=== PATIENT | female | born 1975 | race African-American/Black ===

== ENCOUNTER 2016-04-04 20:43 | Inpatient (IN) | payer MEDICAID ==
[2016-04-04] MEDS ORDERED: RINGERS SOLUTION,LACTATED 300 ML IV ONE (21:36)
[2016-04-04] MEDS ORDERED: DINOPROSTONE 10 MG VAGINAL INSERT.SR PV PRN (21:36)
[2016-04-04] MEDS ORDERED: OXYTOCIN/NORMAL SALINE 1,000 ML IV PRN (21:36)
[2016-04-04 21:46] LABS: APPEARANCE,URINE CLEAR; BILIRUBIN,URINE NEGATIVE (NEGATIVE); GLUCOSE, URINE NEGATIVE (NEGATIVE); KETONES,URINE NEGATIVE (NEGATIVE); LEUKOCYTE ESTERASE,URINE NEGATIVE (NEGATIVE); NITRITE,URINE NEGATIVE (NEGATIVE); PROTEIN,URINE 30 mg/dL (NEGATIVE); URINE SPECIFIC GRAVITY 1.021
[2016-04-04 21:56] LABS: ABSOLUTE EOSINOPHILS # (AUTO) 0.1 10^3/uL (0.0-0.6); ABSOLUTE LYMPHOCYTES (AUTO) 2.7 10^3/uL (0.5-4.7); ABSOLUTE MONOCYTES (AUTO) 0.9 10^3/uL (0.1-1.4); ABSOLUTE NEUT (AUTO) 6.5 10^3/uL (1.7-8.2); BASOPHILS % (AUTO) 0.4 % (0-2); EOSINOPHILS % (AUTO) 1.1 % (0-6); HEMATOCRIT 33.6 % (36.0-47.0); HEMOGLOBIN 11.5 g/dL (12.0-15.5); HGB HCT DIFFERENCE 0.9; LYMPHOCYTES % (AUTO) 26.1 % (13-45); MEAN CORPUSCULAR HGB CONC 34.1 g/dL (32.0-36.0); MEAN CORPUSCULAR VOLUME 91 fl (80-97); MONOCYTES % (AUTO) 8.5 % (3-13); RED CELL DISTRIBUTION WIDTH 13.5 % (11.5-14.0); SEGMENTED NEUTROPHILS % (AUTO) 63.9 % (42-78); WHITE BLOOD COUNT 10.2 10^3/uL (4.0-10.5)
[2016-04-04] MEDS ORDERED: DINOPROSTONE 10 MG VAGINAL INSERT.SR ONE (22:00)
[2016-04-04 22:01] LABS: URINE BARBITURATES SCREEN NEGATIVE; URINE METHADONE SCREEN NEGATIVE; URINE PHENCYCLIDINE SCREEN NEGATIVE
--- NOTE | 2016-04-05 04:45 | L&D Flow Sheet ---
LD Flowsheet Datetime Report Generated by CPN: 04/05/2016 04:45 Datetime: 04/05/2016 04:00 Uterine Activity Monitor Mode: External (Zara Lattibeaudeir, RN) Frequency (min): x2 (Zara Lattibeaudeir, RN) Quality: Mild/Moderate (Zara Lattibeaudeir, RN) Duration (sec): 70-140 (Zara Lattibeaudeir, RN) Resting Tone (Palpate): Relaxed (Zara Lattibeaudeir, RN) Assessment A Monitor Mode: External US (Zara Lattibeaudeir, RN) FHR Baseline Rate : 120 (Zara Lattibeaudeir, RN) Variability: Moderate 6-25 bpm (Zara Lattibeaudeir, RN) Accelerations: 15X15 (Zara Lattibeaudeir, RN) Datetime: 04/05/2016 03:52 I/O Interventions: Up to BR (Zara Lattibeaudeir, RN) Datetime: 04/05/2016 03:30 Uterine Activity Monitor Mode: External (Zara Lattibeaudeir, RN) Frequency (min): 10-11.5 (Zara Lattibeaudeir, RN) Quality: Mild/Moderate (Zara Lattibeaudeir, RN) Duration (sec): 70-90 (Zara Lattibeaudeir, RN) Resting Tone (Palpate): Relaxed (Zara Lattibeaudeir, RN) Assessment A Monitor Mode: External US (Zara Lattibeaudeir, RN) FHR Baseline Rate : 120 (Zara Lattibeaudeir, RN) Variability: Moderate 6-25 bpm (Zara Lattibeaudeir, RN) Accelerations: 15X15 (Zara Lattibeaudeir, RN) Datetime: 04/05/2016 03:20 Vital Signs NBP Sys/Che/Mean (mmHg): 114 (QS system process) : 65 (QS system process) : 85 (QS system process) Pulse: 72 (QS system process) LaborFlag: Labor (QS system process) Datetime: 04/05/2016 03:00 Uterine Activity Monitor Mode: External (Zara Lattibeaudeir, RN) Frequency (min): 10-11 (Zara Lattibeaudeir, RN) Quality: Mild/Moderate (Zara Lattibeaudeir, RN) Duration (sec): 70-150 (Zara Lattibeaudeir, RN) Resting Tone (Palpate): Relaxed (Zara Lattibeaudeir, RN) Assessment A Monitor Mode: External US (Zara Lattibeaudeir, RN) FHR Baseline Rate : 115 (Zara Lattibeaudeir, RN) Variability: Minimal - Undetectable to <=5 bpm (Zara Lattibeaudeir, RN) Datetime: 04/05/2016 02:57 Monitor Interventions for FHR: Ultrasound Adjusted (Zara Lattibeaudeir, RN) Datetime: 04/05/2016 02:52 Monitor Interventions for FHR: Ultrasound Adjusted (Zara Lattibeaudeir, RN) Datetime: 04/05/2016 02:41 Monitor Interventions for FHR: Ultrasound Adjusted (Zara Lattibeaudeir, RN) Datetime: 04/05/2016 02:30 Uterine Activity Monitor Mode: External (Zara Lattibeaudeir, RN) Frequency (min): 11-19 (Zara Lattibeaudeir, RN) Quality: Mild/Moderate (Zara Lattibeaudeir, RN) Duration (sec): 90-100 (Zara Lattibeaudeir, RN) Resting Tone (Palpate): Relaxed (Zara Lattibeaudeir, RN) Assessment A Monitor Mode: External US (Zara Lattibeaudeir, RN) FHR Baseline Rate : 115 (Zara Lattibeaudeir, RN) Datetime: 04/05/2016 02:20 Vital Signs NBP Sys/Che/Mean (mmHg): 111 (QS system process) : 66 (QS system process) : 84 (QS system process) Pulse: 75 (QS system process) LaborFlag: Labor (QS system process) Datetime: 04/05/2016 02:00 Uterine Activity Monitor Mode: External (Zara Lattibeaudeir, RN) Frequency (min): 2-7.5 (Zara Lattibeaudeir, RN) Quality: Mild/Moderate (Zara Lattibeaudeir, RN) Duration (sec): 50-100 (Zara Lattibeaudeir, RN) Resting Tone (Palpate): Relaxed (Zara Lattibeaudeir, RN) Assessment A Monitor Mode: External US (Zara Lattibeaudeir, RN) FHR Baseline Rate : 120 (Zara Lattibeaudeir, RN) Variability: Moderate 6-25 bpm (Zara Lattibeaudeir, RN) Accelerations: 15X15 (Zara Lattibeaudeir, RN) Datetime: 04/05/2016 01:30 Uterine Activity Monitor Mode: External (Zara Lattibeaudeir, RN) Frequency (min): x2 (Zara Lattibeaudeir, RN) Quality: Mild/Moderate (Zara Lattibeaudeir, RN) Duration (sec): 90-100 (Zara Lattibeaudeir, RN) Resting Tone (Palpate): Relaxed (Zara Lattibeaudeir, RN) Assessment A Monitor Mode: External US (Zara Lattibeaudeir, RN) FHR Baseline Rate : 125 (Zara Lattibeaudeir, RN) Variability: Moderate 6-25 bpm (Zara Lattibeaudeir, RN) Datetime: 04/05/2016 01:21 Vital Signs NBP Sys/Che/Mean (mmHg): 123 (QS system process) : 68 (QS system process) : 90 (QS system process) Pulse: 77 (QS system process) LaborFlag: Labor (QS system process) Datetime: 04/05/2016 01:17 Monitor Interventions for UA: [place] Adjusted (Zara Lattibeaudeir, RN) Datetime: 04/05/2016 01:00 Pain Pain Scale: 3 (Zara Lattibeaudeir, RN) Pain Presence: Intermittent (Zara Lattibeaudeir, RN) Pain Type: Cramping (Zara Lattibeaudeir, RN) Pain Location: Abdomen; Back; Head (Zara Lattibeaudeir, RN) Pain Relief Measures: Comfort Measures (Zara Lattibeaudeir, RN) LaborFlag: Labor (QS system process) Datetime: 04/05/2016 00:53 Comments: Monitors re-applied as pt is stating that her contractions are more painful and regular. (Zara Lattibeaudeir, RN) Datetime: 04/05/2016 00:20 Vital Signs NBP Sys/Che/Mean (mmHg): 103 (QS system process) : 60 (QS system process) : 76 (QS system process) Pulse: 82 (QS system process) LaborFlag: Labor (QS system process) Datetime: 04/04/2016 23:21 Communication Communication Comments: Informed pt to let me know if her contractions start to feel consistent and I will put the monitor back on her earlier than her NST Q 4. Pt verbalized understanding. (Zara Lattibeaudeir, RN) Datetime: 04/04/2016 23:20 Vital Signs NBP Sys/Che/Mean (mmHg): 124 (QS system process) : 76 (QS system process) : 95 (QS system process) Pulse: 81 (QS system process) LaborFlag: Labor (QS system process) Datetime: 04/04/2016 23:19 Uterine Activity Monitor Mode: External (Zara Lattibeaudeir, RN) Frequency (min): x2 (Zara Lattibeaudeir, RN) Quality: Mild/Moderate (Zara Lattibeaudeir, RN) Duration (sec): 60-130 (Zara Lattibeaudeir, RN) Resting Tone (Palpate): Relaxed (Zara Lattibeaudeir, RN) Contraction Comments: toco removed (Zara Lattibeaudeir, RN) Assessment A Monitor Mode: External US (Zara Lattibeaudeir, RN) FHR Baseline Rate : 135 (Zara Lattibeaudeir, RN) Variability: Moderate 6-25 bpm (Zara Lattibeaudeir, RN) Accelerations: 15X15 (Zara Lattibeaudeir, RN) Comments: FHR monitor removed (Zara Lattibeaudeir, RN) Datetime: 04/04/2016 23:00 Uterine Activity Monitor Mode: External (Zara Lattibeaudeir, RN) Frequency (min): 2-9 (Zara Lattibeaudeir, RN) Quality: Mild/Moderate (Zara Lattibeaudeir, RN) Duration (sec): 50-110 (Zara Lattibeaudeir, RN) Resting Tone (Palpate): Relaxed (Zara Lattibeaudeir, RN) Assessment A Monitor Mode: External US (Zara Lattibeaudeir, RN) FHR Baseline Rate : 145 (Zara Lattibeaudeir, RN) Variability: Moderate 6-25 bpm (Zara Lattibeaudeir, RN) Accelerations: 15X15 (Zara Lattibeaudeir, RN) Decelerations: Prolonged (Zara Lattibeaudeir, RN) Datetime: 04/04/2016 22:53 Communication Communication Comments: Per Dr. Rodrigez BP hourly and NST every 4 hours. (Zara Lattibeaudeir, RN) Datetime: 04/04/2016 22:30 Uterine Activity Monitor Mode: External (Zara Lattibeaudeir, RN) Frequency (min): 3-9 (Zara Lattibeaudeir, RN) Quality: Mild/Moderate (Zara Lattibeaudeir, RN) Duration (sec): 80-110 (Zara Lattibeaudeir, RN) Resting Tone (Palpate): Relaxed (Zara Lattibeaudeir, RN) Assessment A Monitor Mode: External US (Zara Lattibeaudeir, RN) FHR Baseline Rate : 135 (Zara Lattibeaudeir, RN) Variability: Moderate 6-25 bpm (Zara Lattibeaudeir, RN) Accelerations: 15X15 (Zara Lattibeaudeir, RN) Datetime: 04/04/2016 22:20 Communication Communication Comments: Informed patient of physician orders. Pt verbalized understanding and denies any questions at this time. (Zara Lattibeaudeir, RN) Datetime: 04/04/2016 22:05 Communication Communication Comments: Informed Dr. Rodrigez of [facility]. Received orders for pt to rest tonight and start Pitocin at 0600. (Zara Lattibeaudeir, RN) Datetime: 04/04/2016 22:04 Vaginal Exam Dilatation (cm): 3.0 (Zara Melita, JAVIER) Effacement (%): 70 (Zara Hua RN) Station: -2 (Zara Hua RN) Exam by: Laney Hua RN (Zara Melita, JAVIER) Membrane Status: Intact (Zara Hua, JAVIER) Vaginal Bleeding: None (Zara Hua, JAVIER) Cervix, Consistency: Soft (Zara Lattiblily, RN) Cervix, Position: Midposition (Zara Andradetiblily, JAVIER) Datetime: 04/04/2016:01 Vital Signs NBP Sys/Che/Mean (mmHg): 141 (QS system process) : 88 (QS system process) : 110 (QS system process) Pulse: 106 (QS system process) Temperature (F): 97.9 (Zara Lattibeaudeir, RN) Temperature (C): 36.6 (QS system process) Temperature Route: Oral (Zara Lattibeaudeir, RN) LaborFlag: Labor (QS system process) Datetime: 04/04/2016 22:00 Uterine Activity Monitor Mode: External (Zara Lattibeaudeir, RN) Frequency (min): 3.5-10 (Zara Lattibeaudeir, RN) Quality: Mild/Moderate (Zara Lattibeaudeir, RN) Duration (sec): 70-90 (Zara Lattibeaudeir, RN) Resting Tone (Palpate): Relaxed (Zara Lattibeaudeir, RN) Assessment A Monitor Mode: External US (Zara Lattibeaudeir, RN) FHR Baseline Rate : 135 (Zara Lattibeaudeir, RN) Variability: Moderate 6-25 bpm (Zara Lattibeaudeir, RN) Accelerations: Prolonged (Zara Lattibeaudeir, RN) Decelerations: None (Zara Lattibeaudeir, RN) Datetime: 04/04/2016 21:31 Vital Signs NBP Sys/Che/Mean (mmHg): 132 (QS system process) : 87 (QS system process) : 105 (QS system process) Pulse: 99 (QS system process) LaborFlag: Labor (QS system process) Datetime: 04/04/2016 21:30 Uterine Activity Monitor Mode: External (Zara Lattibeaudeir, RN) Frequency (min): x2 (Zara Lattibeaudeir, RN) Quality: Mild/Moderate (Zara Lattibeaudeir, RN) Duration (sec): 60 (Zara Lattibeaudeir, RN) Resting Tone (Palpate): Relaxed (Zara Lattibeaudeir, RN) Assessment A Monitor Mode: External US (Zara Lattibeaudeir, RN) FHR Baseline Rate : 125 (Zara Lattibeaudeir, RN) Variability: Moderate 6-25 bpm (Zara Lattibeaudeir, RN) Decelerations: None (Zara Lattibeaudeir, RN) Datetime: 04/04/2016 21:28 Patient Care IV/Blood Work: IV Started; IV Bolus Started (Valencia Misael, RN) Patient Care Comments: 18 g started in L forearm (Valencia Misael, RN) Datetime: 04/04/2016 21:25 Procedures: Consents Signed (Zara Lattibeaudeir, RN) Datetime: 04/04/2016 21:12 Contraction Comments: toco applied (Zara Lattibeaudeir, RN) Datetime: 04/04/2016 21:11 Comments: FHR monitor applied (Zara Lattibeaudeir, RN)
--- NOTE | 2016-04-05 04:45 | L&D General Admission ---
General Admit Datetime Report Generated by CPN: 04/05/2016 04:45 INFORMATION Patient Age: 40 (07/14/2015 07:40:QS system process) EDC: 04/18/2016 00:00 (03/10/2016 07:50:Shagufta Morrison RN) : 10 (03/10/2016 07:50:Shagufta Morrison RN) Para: 8 (03/15/2016 12:28:Valencia Douglas RN) Para: 8 (03/10/2016 08:50:Yuliya Al RN) Para: 8 (03/10/2016 07:50:Shagufta Morrison RN) Term: 7 (03/10/2016 07:50:Valencia Douglas RN) : 1 (03/10/2016 07:50:Valencia Douglas RN) Spontaneous Abortions: 1 (03/10/2016 07:50:Valencia Douglas RN) Induced Abortions: 0 (03/10/2016 07:50:Zara Hua RN) Livin (03/10/2016 07:50:Valencia Douglas RN) Cesareans: 0 (03/10/2016 07:50:Zara Hua RN) VBACs: 0 (03/10/2016 07:50:Zara Hua RN) Ectopic: 0 (03/10/2016 07:50:Zara Hua RN) Multiple Births: 0 (03/10/2016 07:50:Zara Hua RN) Baby, Number in Womb: 1 (03/15/2016 12:28:KANNAN Alfaro) Baby, Number in Womb: 1 (03/10/2016 08:50:Yuliya Al RN) CARE Primary Ice Cream Scooper: [facility] (03/10/2016 07:50:Shagufta Morrison RN) Adequate Care: Yes (03/10/2016 07:50:Zara Hua RN) Prepregnancy Weight (lb): 157 (03/10/2016 07:50:Zara Hua RN) Prepregnancy Weight (kg): 71.4 (03/10/2016 07:50:QS system process) Height (in): 67 (04/04/2016 21:38:QS system process) Height (in): 67 (03/15/2016 11:47:QS system process) Height (in): 67 (03/10/2016 07:52:QS system process) Height (in): 66 (03/10/2016 07:32:QS system process) Height (in): 66 (07/14/2015 07:40:QS system process) ALLERGIES Medication Allergy: No (03/10/2016 07:50:Zara Hua RN) Medication Allergies: No Known Allergies (03/15/2016) (03/15/2016 11:47:QS system process) Medication Allergies: No Known Allergies (03/10/2016) (03/10/2016 07:50:QS system process) Medication Allergies: No Known Allergies (03/26/2011) (07/14/2015 07:40:QS system process) Latex Allergy: No Latex Allergies (03/10/2016 07:50:Zara Hua RN) COMMUNICATION Primary Language: Mexican (03/10/2016 07:50:Shagufta Morrison RN) Medical Tx Preferred Language: Mexican (03/10/2016 07:50:Shagufta Morrison RN) Communication Barrier(s): None (03/10/2016 07:50:Shagufta Morrison RN) DEMOGRAPHICS Address: [address] [place] [id number] (07/14/2015 07:40:QS system process) Zipcode: [address] (07/14/2015 07:40:QS system process) Home (07/14/2015 07:40:QS system process) SSN: [id number] (07/14/2015 07:40:QS system process) Next of Kin Name: CHAKA CARRASCO (07/14/2015 07:40:QS system process) Next of Kin (07/14/2015 07:40:QS system process) Next of Kin Relationship: SPO (07/14/2015 07:40:QS system process) Date of : 1975 (07/14/2015 07:40:QS system process) Marital Status: (07/14/2015 07:40:QS system process) Sex: Female (07/14/2015 07:40:QS system process) Race: (07/14/2015 07:40:QS system process) Ethnicity: Non- or (07/14/2015 07:40:QS system process) Gnosticism: Denominational (07/14/2015 07:40:QS system process) DRUG AND ALCOHOL USE Alcohol: No (03/10/2016 07:50:Zara Hua RN) Cigarettes: Never Smoker. [id number] (03/10/2016 07:50:Zara Hua RN) Marijuana: No (03/10/2016 07:50:Zara Hua RN) Cocaine: No (03/10/2016 07:50:Zara Hua RN) Other Illicit Drugs: No (03/10/2016 07:50:Zara Hua RN) VACCINE HISTORY Influenza Vaccine: Uncertain (03/10/2016 07:50:Zara Hua RN) Pneumococcal Vaccine: No (03/10/2016 07:50:Zara Hua RN) Tdap Vaccine: Uncertain (03/10/2016 07:50:Zara Hua RN) Hepatitis B Vaccine: Uncertain (03/10/2016 07:50:Zara Hua RN) Mixer Operator Vacuum Pan Salt: [facility] (03/10/2016 07:50:Zara Hua RN) Feeding Preference: Both (03/10/2016 07:50:Zara Hua RN) Benefit of Breast Feed Discussed: Yes (03/10/2016 07:50:Zara Hua RN) Classes Attended: No (03/10/2016 07:50:Zara Hua RN) Consent: N/A (03/10/2016 07:50:Zara Hua RN) Consent Signed: N/A (03/10/2016 07:50:Zara Hua RN) Pain Management Plans: Epidural (03/10/2016 07:50:Zara Hua RN) Plans for Labor and Delivery: None (03/10/2016 07:50:Zara Hua RN) Support Person: Chaka (03/10/2016 07:50:Zara Hua RN) Support Person Relationship: (03/10/2016 07:50:Zara Hua RN) Cultural/Spritual Practice: No (03/10/2016 07:50:Zara Hua RN) Spir/Cult Dietary Needs: No (03/10/2016 07:50:Zara Hua RN) LIVING SITUATION/DISCHARGE PLAN Adequate Access to:: Electric; Heat; Refrigeration; Plumbing/Running water; Phone; Transportation (03/10/2016 07:50:Zara Hua RN) Discharge Traffic Control Signaler Person: Chaka (03/10/2016 07:50:Zara Hua RN) Person to Help after Discharge: Chaka (03/10/2016 07:50:Zara Hua RN) Currently Using Commun Resources: No (03/10/2016 07:50:Zara Hua RN) Outside Agency/Outbound Sales Advisor: No (03/10/2016 07:50:Zara Hua RN) Car Seat for Discharge: Yes (03/10/2016 07:50:Zara Hua RN) Adoption Requested: No (03/10/2016 07:50:Zara Hua RN) Pt Contact w/infant Post : N/A (03/10/2016 07:50:Zara Hua RN) LABS Blood Type: O Positive (03/10/2016 07:50:Valencia Douglas RN) Antibody Screen: Negative (03/10/2016 07:50:Valencia Douglas RN) Rho(G) this : Not Applicable (03/10/2016 07:50:Zara Hua RN) Hemoglobin: 11.5 L (04/04/2016 21:47:QS system process) Hemoglobin: 12.2 (07/14/2015 07:50:QS system process) Hematocrit: 33.6 L (04/04/2016 21:47:QS system process) Hematocrit: 37.9 (07/14/2015 07:50:QS system process) MCV: 91 (04/04/2016 21:47:QS system process) MCV: 92 (07/14/2015 07:50:QS system process) Group Beta Strep: negative (03/10/2016 07:50:Valencia Douglas RN) Gonorrhea: Negative (03/10/2016 07:50:Valencia Douglas RN) Chlamydia: Negative (03/10/2016 07:50:Valencia Douglas RN) RPR/VDRL: Nonreactive (03/10/2016 07:50:Valencia Douglas RN) HIV Results: non-reactive (03/10/2016 07:50:Valencia Douglas RN) Hepatitis B: Negative (03/10/2016 07:50:Valencia Douglas RN) Rubella: Immune (03/10/2016 07:50:Valencia Douglas RN) Varicella: Non Susceptible (03/10/2016 07:50:Valencia Douglas RN) HgB A1c: 5.5 (07/14/2015 07:50:Leads Direct system process) OB/PREVIOUS HISTORY Previous Procedures: Ultrasound; NST (03/10/2016 07:50:Zara Hua RN) Current Procedures: Ultrasound; NST (03/10/2016 07:50:Zara Hua RN) History of Previous : No (03/10/2016 07:50:Zara Hua RN) History of Gestational Diabetes: No (03/10/2016 07:50:Zara Hua RN) History of PIH: No (03/10/2016 07:50:Zara Hua RN) History of Incompetent Cervix: No (03/10/2016 07:50:Zara Hua RN) History of Placenta Previa/Abrup: No (03/10/2016 07:50:Zara Hua RN) History of Macrosomia: No (03/10/2016 07:50:Zara Hua RN) History of IUGR: No (03/10/2016 07:50:Zara Hua RN) History of Hemorrhage: No (03/10/2016 07:50:Zara Hua RN) History of Loss/Stillborn: No (03/10/2016 07:50:Zara Hua RN) History of : No (03/10/2016 07:50:Zara Hua RN) History of D (Rh) Sensitization: No (03/10/2016 07:50:Zara Hua RN) History Recurrent Loss/Stillborn: No (03/10/2016 07:50:Zara Hua RN) History Depression/PP Depression: No (03/10/2016 07:50:Zara Hua RN) History of Uterine Anomaly/RAMON: No (03/10/2016 07:50:Zara Hua RN) History of Infertility: No (03/10/2016 07:50:Zara Hua RN) History of ART Treatment: No (03/10/2016 07:50:Zara Hua RN) History of RAMON: No (03/10/2016 07:50:Zara Hua RN) Comments Obstetrical History: G1-1990 36.4 wks gest female 6lbs 13 oz G2-1995 37 wks gest female 6lbs 15oz G3-1998 SAB G4-1998 37 wks gest male 6lbs 10 oz G5-2001 37 wks gest female 5lbs 10oz G6-2004 37 wks gest female 6lbs 11oz G7-2007 37 wks gest male 7lbs 11oz G8-2013 39 wks gest female 7lbs 14oz G9-2014 38.6 wks gest male 7lbs 11 oz [id number] (03/10/2016 07:50:Zara Hua RN) MEDICAL HISTORY Med Hx Diabetes: No (03/10/2016 07:50:Zara Hua RN) Med Hx Hypertension: Yes (03/10/2016 07:50:Valencia Douglas RN) Med Hx Heart Disease: No (03/10/2016 07:50:Zara Hua RN) Med Hx Autoimmune Disorder: No (03/10/2016 07:50:Zara Hua RN) Med Hx Kidney Disease/UTI: No (03/10/2016 07:50:Zara Hua RN) Med Hx Neurologic/Epilepsy: No (03/10/2016 07:50:Zara Hua RN) Med Hx Psychiatric Disorders: No (03/10/2016 07:50:Zara Hua RN) Med Hx Hepatitis/Liver Disease: No (03/10/2016 07:50:Zara Hua RN) Med Hx Varicosities/Phlebitis: No (03/10/2016 07:50:Zara Hua RN) Med Hx Thyroid Dysfunction: No (03/10/2016 07:50:Zara Hua RN) Med Hx Trauma/Violence: No (03/10/2016 07:50:Zara Hua RN) Med Hx Blood Transfusion: No (03/10/2016 07:50:Zara Hua RN) Med Hx Pulmonary (Asthma,TB): No (03/10/2016 07:50:Zara Hua RN) Med Hx Breast: No (03/10/2016 07:50:Zara Hua RN) Med Hx TICKETER Surgery: No (03/10/2016 07:50:Zara Hua RN) Med Hx Hospitalization/Surgery: Yes (03/10/2016 07:50:Zara Hua RN) Med Hx Anesthetic Complications: No (03/10/2016 07:50:Zara Hua RN) Med Hx Abnormal Pap Smear: No (03/10/2016 07:50:Zara Hua RN) Other Medical Diseases: Yes (03/10/2016 07:50:Valencia Douglas RN) Med Hx Significant Family Hx: No (03/10/2016 07:50:Zara Hua RN) Details of Med/Surg Hx: CHTN-was on Aldomet then changed to labetalol; anemia; 2007-tubal ligation (failed); childbirth (03/10/2016 07:50:Zara Hua RN) INFECTIOUS HISTORY Inf Hx Gonorrhea: No (03/10/2016 07:50:Zara Hua RN) Inf Hx Chlamydia: No (03/10/2016 07:50:Zara Hua RN) Inf Hx Syphilis: No (03/10/2016 07:50:Zara Hua RN) Inf Hx HIV/AIDS: No (03/10/2016 07:50:Zara Hua RN) Inf Hx Human Papilloma Virus: No (03/10/2016 07:50:Zara Hua RN) Inf Hx Pt/Partner Genital Herpes: No (03/10/2016 07:50:Zara Hua RN) Inf Hx Tuberculosis/Exposure: No (03/10/2016 07:50:Zara Hua RN) Inf Hx Hepatitis B,C: No (03/10/2016 07:50:Zara Hua RN) Inf Hx Rash or Viral Illness: No (03/10/2016 07:50:Zara Hua RN) GENETIC HISTORY Gen Hx Age >=35 at YENNY: No (03/10/2016 07:50:Zara Hua RN) Gen Hx Thalassemia: No (03/10/2016 07:50:Zara Hua RN) Gen Hx Congenital Heart Defect: No (03/10/2016 07:50:Zara Hua RN) Gen Hx Neural Tube Defect: No (03/10/2016 07:50:Zara Hua RN) Gen Hx Down's Syndrome: No (03/10/2016 07:50:Zara Hua RN) Gen Hx Darin-Sachs: No (03/10/2016 07:50:Zara Hua RN) Gen Hx Lorri: No (03/10/2016 07:50:Zara Hua RN) Gen Hx Familial Dysautonomia: No (03/10/2016 07:50:Zara Hua RN) Gen Hx Sickle Cell Disease/Trait: No (03/10/2016 07:50:Zara Hua RN) Gen Hx Hemophilia/Blood Disorder: No (03/10/2016 07:50:Zara Hua RN) Gen Hx Muscular Dystrophy: No (03/10/2016 07:50:Zara Hua RN) Gen Hx Cystic Fibrosis: No (03/10/2016 07:50:Zara Hua RN) Gen Hx Huntingtons Chorea: No (03/10/2016 07:50:Zara Hua RN) Gen Hx Mental Retardation/Autism: No (03/10/2016 07:50:Zara Hua RN) Gen Hx Tested for Fragile X: No (03/10/2016 07:50:Zara Hua RN) Gen Hx Other Inher/Chromosomal: No (03/10/2016 07:50:Zara Hua RN) Gen Hx Maternal Metabolic DO: No (03/10/2016 07:50:Zara Hua RN) Gen Hx Pt Father or FOB Defect: No (03/10/2016 07:50:Zara Hua RN) Gen Hx Other Genetic History: No (03/10/2016 07:50:Zara Hua RN) Gen Hx Drugs/Meds since LMP: No (03/10/2016 07:50:Zara Hua RN)
--- NOTE | 2016-04-05 04:45 | L&D Current Admission ---
Current Admit Datetime Report Generated by CPN: 04/05/2016 04:45 ADMISSION INFORMATION Current Admit Date/Time: 04/04/2016 21:03 (04/04/2016 21:53:Zara Hua RN) Reason for Admission: Induction of Labor (04/04/2016 21:53:Zara Hua RN) Chief Complaint: Pt states that she missed her MFM appointment yesterday and was told to just come here for her NST (03/10/2016 08:00:Yuliya Al RN) EGA per Dates: 38.0 (04/04/2016 21:53:QS system process) Method of Arrival: Wheelchair (04/04/2016 21:53:Zara Hua RN) Admitted From: Home (04/04/2016 21:53:Zara Hua RN) Reason for Induction: Chronic Hypertension (04/04/2016 21:53:Zara Hua RN) Records Available: Yes (04/04/2016 21:53:Zara Hua RN) General Admission Information: Reviewed; Updated; Confirmed (04/04/2016 21:53:Zara Hua RN) General Admission Reviewed By: Laney Hua RN (04/04/2016 21:53:Zara Hua RN) BELONGINGS/ADVANCED DIRECTIVES Valuables/Personal Effects: Purse/Wallet; Cell Phone; Eyeglasses; Jewelry (04/04/2016 21:53:Zara Hua RN) Disposition of Belongings: Kept with Patient (04/04/2016 21:53:Zara Hua RN) Advance Direct for Healthcare: No, and Wants No Information (04/04/2016 21:53:Zara Hua RN) Durable Power of Licensed Professional Counselor: No (04/04/2016 21:53:Zara uHa RN) Living Will: No (04/04/2016 21:53:Zara Hua RN) Pt Rights Information Given: Yes (04/04/2016 21:53:Zara Hua RN) Pt Understands Pt Rights: Yes (04/04/2016 21:53:Zara Hua RN) LEARNING ASSESSMENT Knowledge Level: Understands L_D Process; Understands Care Activities; Had Pre-Hospital Education; Understands Diagnosis (04/04/2016 21:53:Zara Hua RN) Barriers to Learning: Visual Deficit (04/04/2016 21:53:Zara Hua RN) Learning Readiness: Motivated (04/04/2016 21:53:Zara Hua RN) Learns Best By: 1 to 1 Instruction; Reading; Videos; Demonstration (04/04/2016 21:53:Zara Hua RN) Learning Needs: Labor and Delivery Process; Symptoms to Report; Treatment Plan (04/04/2016 21:53:Zara Hua RN) Learning Assessment Comments: wears glasses (04/04/2016 21:53:Zara Hua RN) DOMESTIC VIOLANCE SCREENING Dom Viol Threatened/Hurt: No (04/04/2016 21:53:Zara Hua RN) Hx of Abuse/Neglect past 2yrs: No (04/04/2016 21:53:Zara Hua RN) Feel Unsafe Going Home: No (04/04/2016 21:53:Zara Hua RN) Addt'l Observ Indicating Abuse: No (04/04/2016 21:53:Zara Hua RN) Reason Unable to Complete Screen: N/A, Screen Completed (04/04/2016 21:53:Zara Hua RN) Considered Personal Harm/Suicide: No (04/04/2016 21:53:Zara Hua RN) NUTRITIONAL/FUNCTIONAL SCREENING Problem with Appetite >5 Days: No (04/04/2016 21:53:Zara Hua RN) Chew/Swallow Difficulties: No (04/04/2016 21:53:Zara Hua RN) Inappropriate Wt Gain/Loss: No (04/04/2016 21:53:Zara Hua RN) Presence Skin Breakdown/Ulcer: No (04/04/2016 21:53:Zara Hua RN) Special Diet: No (04/04/2016 21:53:Zara Hua RN) Pt Requests Steam Pressure Chamber Operator Visit: No (04/04/2016 21:53:Zara Hua RN) Hx of Any of the Following?: N/A (04/04/2016 21:53:Zara Hua RN) New Diagnosis of: N/A (04/04/2016 21:53:Zara Hua RN) Requires Assist w/Ambulation: No (04/04/2016 21:53:Zara Hua RN) Uses Assist Device to Ambulate: No (04/04/2016 21:53:Zara Hua RN) Pt Requires Help w/ADL's: No (04/04/2016 21:53:Zara Hua RN)
--- NOTE | 2016-04-05 04:45 | L&D Admission Assessment ---
LD ADM ASMT Datetime Report Generated by CPN: 04/05/2016 04:45 WEIGHT Weight (lb): 185 (04/04/2016 21:38:QS system process) Weight (kg): 84.1 (04/04/2016 21:38:QS system process) Total Wt Gain (lb): 28 (04/04/2016 21:38:QS system process) Wt Gain (kg): 12.6 (04/04/2016 21:38:QS system process) BMI: 29.0 (04/04/2016 21:38:QS system process) PAIN Pain Scale: 3 (04/05/2016 01:00:Zara Hua RN) Pain Presence: Intermittent (04/05/2016 01:00:Zaar Hua RN) Pain Type: Cramping (04/05/2016 01:00:Zara Hua RN) Pain Location: Abdomen; Back; Head (04/05/2016 01:00:Zara Hua RN) CONTRACTIONS Frequency (min): x2 (04/05/2016 04:00:Zara Lupetibcallieir, RN) Frequency (min): 10-11.5 (04/05/2016 03:30:Zara Lattibcallieir, RN) Frequency (min): 10-11 (04/05/2016 03:00:Zara Lupetibeaudeir, RN) Frequency (min): 11-19 (04/05/2016 02:30:Zara Lattibeaudeir, RN) Frequency (min): 2-7.5 (04/05/2016 02:00:Zara Lattibeaudeir, RN) Frequency (min): x2 (04/05/2016 01:30:Zara Lattibeaudeir, RN) Frequency (min): x2 (04/04/2016 23:19:Zara Lattibeaudeir, RN) Frequency (min): 2-9 (04/04/2016 23:00:Zara Lattibeaudeir, RN) Frequency (min): 3-9 (04/04/2016 22:30:Zara Lattibeaudeir, RN) Frequency (min): 3.5-10 (04/04/2016 22:00:Zara Lattibeaudeir, RN) Frequency (min): x2 (04/04/2016 21:30:Zara Lattibeaudeir, RN) Duration (sec): 70-140 (04/05/2016 04:00:Zara Lattibeaudeir, RN) Duration (sec): 70-90 (04/05/2016 03:30:Zara Lattibeaudeir, RN) Duration (sec): 70-150 (04/05/2016 03:00:Zara Lattibeaudeir, RN) Duration (sec): 90-100 (04/05/2016 02:30:Zara Lattibeaudeir, RN) Duration (sec): 50-100 (04/05/2016 02:00:Zara Lattibeaudeir, RN) Duration (sec): 90-100 (04/05/2016 01:30:Zara Lattibeaudeir, RN) Duration (sec): 60-130 (04/04/2016 23:19:Zara Lattibeaudeir, RN) Duration (sec): 50-110 (04/04/2016 23:00:Zara Lattibeaudeir, RN) Duration (sec): 80-110 (04/04/2016 22:30:Zara Lattibeaudeir, RN) Duration (sec): 70-90 (04/04/2016 22:00:Zara Lattibeaudeir, RN) Duration (sec): 60 (04/04/2016 21:30:Zara Lattibeaudeir, RN) Quality: Mild/Moderate (04/05/2016 04:00:Zara Lattibeaudeir, RN) Quality: Mild/Moderate (04/05/2016 03:30:Zara Lattibeaudeir, RN) Quality: Mild/Moderate (04/05/2016 03:00:Zara Lattibeaudeir, RN) Quality: Mild/Moderate (04/05/2016 02:30:Zara Lattibeaudeir, RN) Quality: Mild/Moderate (04/05/2016 02:00:Zara Lattibeaudeir, RN) Quality: Mild/Moderate (04/05/2016 01:30:Zara Lattibeaudeir, RN) Quality: Mild/Moderate (04/04/2016 23:19:Zara Pfeifferir, RN) Quality: Mild/Moderate (04/04/2016 23:00:Zara Pfeifferir, RN) Quality: Mild/Moderate (04/04/2016 22:30:Zara Pfeifferir, RN) Quality: Mild/Moderate (04/04/2016 22:00:Zara Hua RN) Quality: Mild/Moderate (04/04/2016 21:30:Zara Hua RN) Resting Tone [place]: Relaxed (04/05/2016 04:00:Zara Hua RN) Resting Tone [place]: Relaxed (04/05/2016 03:30:Zara Hua RN) Resting Tone [place]: Relaxed (04/05/2016 03:00:Zara Hua RN) Resting Tone [place]: Relaxed (04/05/2016 02:30:Zara Hua RN) Resting Tone [place]: Relaxed (04/05/2016 02:00:Zara Andradetiblily RN) Resting Tone [place]: Relaxed (04/05/2016 01:30:Zara Hua RN) Resting Tone [place]: Relaxed (04/04/2016 23:19:Zara Hua RN) Resting Tone [place]: Relaxed (04/04/2016 23:00:Zara Hua RN) Resting Tone [place]: Relaxed (04/04/2016 22:30:Zara Hua RN) Resting Tone [place]: Relaxed (04/04/2016 22:00:Zara Andradetiblily RN) Resting Tone [place]: Relaxed (04/04/2016 21:30:Zara Hua RN) Contraction Comments: toco removed (04/04/2016 23:19:Zara Hua RN) Contraction Comments: toco applied (04/04/2016 21:12:Zara Hua RN) VAGINAL EXAM Dilatation (cm): 3.0 (04/04/2016 22:04:Zara Hua RN) Effacement (%): 70 (04/04/2016 22:04:Zara Hua RN) Station: -2 (04/04/2016 22:04:Zara Hua RN) Membranes Status: Intact (04/04/2016 22:04:Zara Hua RN) BABY A FHR Baseline Rate (bpm) Baby A: 120 (04/05/2016 04:00:Zara Hua RN) FHR Baseline Rate (bpm) Baby A: 120 (04/05/2016 03:30:Zara Hua RN) FHR Baseline Rate (bpm) Baby A: 115 (04/05/2016 03:00:Zara Hua RN) FHR Baseline Rate (bpm) Baby A: 115 (04/05/2016 02:30:Zara Hua RN) FHR Baseline Rate (bpm) Baby A: 120 (04/05/2016 02:00:Zara Hua RN) FHR Baseline Rate (bpm) Baby A: 125 (04/05/2016 01:30:Zara Hua RN) FHR Baseline Rate (bpm) Baby A: 135 (04/04/2016 23:19:Zara Hua RN) FHR Baseline Rate (bpm) Baby A: 145 (04/04/2016 23:00:Zara Hua RN) FHR Baseline Rate (bpm) Baby A: 135 (04/04/2016 22:30:Zara Hua RN) FHR Baseline Rate (bpm) Baby A: 135 (04/04/2016 22:00:Zara Hua RN) FHR Baseline Rate (bpm) Baby A: 125 (04/04/2016 21:30:Zara Hua RN) Variability Baby A: Moderate 6-25 bpm (04/05/2016 04:00:Zara Hua RN) Variability Baby A: Moderate 6-25 bpm (04/05/2016 03:30:Zara Hua RN) Variability Baby A: Minimal - Undetectable to <=5 bpm (04/05/2016 03:00:Zara Hua RN) Variability Baby A: Moderate 6-25 bpm (04/05/2016 02:00:Zara Hua RN) Variability Baby A: Moderate 6-25 bpm (04/05/2016 01:30:Zara Hua RN) Variability Baby A: Moderate 6-25 bpm (04/04/2016 23:19:Zara Hua RN) Variability Baby A: Moderate 6-25 bpm (04/04/2016 23:00:Zara Hua RN) Variability Baby A: Moderate 6-25 bpm (04/04/2016 22:30:Zara Hua RN) Variability Baby A: Moderate 6-25 bpm (04/04/2016 22:00:Zara Hua RN) Variability Baby A: Moderate 6-25 bpm (04/04/2016 21:30:Zara Hua RN) Accelerations Baby A: 15X15 (04/05/2016 04:00:Zara Hua RN) Accelerations Baby A: 15X15 (04/05/2016 03:30:Zara Hua RN) Accelerations Baby A: 15X15 (04/05/2016 02:00:Zara Hua RN) Accelerations Baby A: 15X15 (04/04/2016 23:19:Zara Hua RN) Accelerations Baby A: 15X15 (04/04/2016 23:00:Zara Hua RN) Accelerations Baby A: 15X15 (04/04/2016 22:30:Zara Hua RN) Accelerations Baby A: Prolonged (04/04/2016 22:00:Zara Hua RN) Decelerations Baby A: Prolonged (04/04/2016 23:00:Zara Hua RN) Decelerations Baby A: None (04/04/2016 22:00:Zara Hua RN) Decelerations Baby A: None (04/04/2016 21:30:Zara Hua RN)
--- NOTE | 2016-04-05 04:46 | L&D Discharge Summary ---
OB Discharge Summary Datetime Report Generated by CPN: 04/05/2016 04:45 DISCHARGE DIAGNOSIS Diagnosis/Symptoms: Reassuring Surveillance - Annotate Details Diagnoses/Symptoms Other: iup 35.1 reactive NST Gestation: 38.0 Number of Babies in Womb: 1 Parity: 8 DIET/ACTIVITY/RESTRICTIONS Diet: Regular Activity: Normal Activity TEACHING/INSTRUCTIONS/REFERRALS Instructions Given To: patient Instructions Understood: Patient Verbalized Understanding; Support Person Verbalized Understanding Referrals: None Educational Materials- Other: kick count process reviewed from previous discharge from labor and delivery. Reviewed importance of adequate hydration, frequent small meals. Denied questions or concerns DISCHARGE INFORMATION Discharged AMA: No Discharge Date/Time: 03/15/2016 12:10 Discharged To: Home Discharge Provider Name: Freire Accompanied By: self Discharge Method: Ambulatory Condition: Stable FOLLOW UP INFORMATION Follow Up With: [facility] Follow Up On: As Scheduled Follow Up Phone Number: [facility] - Comments: Pt ambulated off unit in stable condition, instructed to keep scheduled appointment at [facility] or schedule sooner as needed. PT instructed on when to return to hospital. No questions or concerns expressed by pt or family at this time.
[2016-04-05] MEDS ORDERED: OXYTOCIN/NORMAL SALINE 0 UNIT/0 ML RTUINJ ONE (05:26)
[2016-04-05] MEDS: RINGERS SOLUTION,LACTATED 1,000 ML IV PRN ×2 (05:43→06:10)
[2016-04-05] MEDS ORDERED: OXYTOCIN/NORMAL SALINE 20 UNIT/1,000 ML RTUINJ IV PRN (06:00)
--- NOTE | 2016-04-05 06:26 | L&D General Admission ---
General Admit Datetime Report Generated by CPN: 04/05/2016 06:00 INFORMATION Patient Age: 40 (07/14/2015 07:40:QS system process) EDC: 04/18/2016 00:00 (03/10/2016 07:50:Shagufta Morrison RN) : 10 (03/10/2016 07:50:Shagufta Morrison RN) Para: 8 (03/15/2016 12:28:Valencia Douglas RN) Term: 7 (03/10/2016 07:50:Valencia Douglas RN) : 1 (03/10/2016 07:50:Valencia Douglas RN) Spontaneous Abortions: 1 (03/10/2016 07:50:Valencia Douglas RN) Induced Abortions: 0 (03/10/2016 07:50:Zara Hua RN) Livin (03/10/2016 07:50:Valencia Douglas RN) Cesareans: 0 (03/10/2016 07:50:Zara Hua RN) VBACs: 0 (03/10/2016 07:50:Zara Hua RN) Ectopic: 0 (03/10/2016 07:50:Zara Hua RN) Multiple Births: 0 (03/10/2016 07:50:Zara Hua RN) Baby, Number in Womb: 1 (03/15/2016 12:28:KANNAN Alfaro) CARE Primary Reproduction Artist: [facility] (03/10/2016 07:50:Shagufta Morrison RN) Adequate Care: Yes (03/10/2016 07:50:Zara Hua RN) Prepregnancy Weight (lb): 157 (03/10/2016 07:50:Zara Hua RN) Prepregnancy Weight (kg): 71.4 (03/10/2016 07:50:QS system process) Height (in): 67 (04/04/2016 21:38:QS system process) ALLERGIES Medication Allergy: No (03/10/2016 07:50:Zara Hua RN) Medication Allergies: No Known Allergies (03/15/2016) (03/15/2016 11:47:QS system process) Latex Allergy: No Latex Allergies (03/10/2016 07:50:Zara Hua RN) COMMUNICATION Primary Language: Macedonian (03/10/2016 07:50:Shagufta Morrison RN) Medical Tx Preferred Language: Macedonian (03/10/2016 07:50:Shagufta Morrison RN) Communication Barrier(s): None (03/10/2016 07:50:Shagufta Morrison RN) DEMOGRAPHICS Address: [address] [place] [id number] (07/14/2015 07:40:QS system process) Zipcode: [address] (07/14/2015 07:40:QS system process) Home (07/14/2015 07:40:QS system process) SSN: [id number] (07/14/2015 07:40:QS system process) Next of Kin Name: CHAKA CARRASCO (07/14/2015 07:40:QS system process) Next of Kin (07/14/2015 07:40:QS system process) Next of Kin Relationship: SPO (07/14/2015 07:40:QS system process) Date of : 1975 (07/14/2015 07:40:QS system process) Marital Status: (07/14/2015 07:40:QS system process) Sex: Female (07/14/2015 07:40:QS system process) Race: (07/14/2015 07:40:QS system process) Ethnicity: Non- or (07/14/2015 07:40:QS system process) Hinduism: Orthodoxy (07/14/2015 07:40:QS system process) DRUG AND ALCOHOL USE Alcohol: No (03/10/2016 07:50:Zara Hua RN) Cigarettes: Never Smoker. [id number] (03/10/2016 07:50:Zara Hua RN) Marijuana: No (03/10/2016 07:50:Zara Hua RN) Cocaine: No (03/10/2016 07:50:Zara Hua RN) Other Illicit Drugs: No (03/10/2016 07:50:Zara Hua RN) VACCINE HISTORY Influenza Vaccine: Uncertain (03/10/2016 07:50:Zara Hua RN) Pneumococcal Vaccine: No (03/10/2016 07:50:Zara Hua RN) Tdap Vaccine: Uncertain (03/10/2016 07:50:Zara Hua RN) Hepatitis B Vaccine: Uncertain (03/10/2016 07:50:Zara Hua RN) Building Services Technician: [facility] (03/10/2016 07:50:Zara Hua RN) Feeding Preference: Both (03/10/2016 07:50:Zara Hua RN) Benefit of Breast Feed Discussed: Yes (03/10/2016 07:50:Zara Hua RN) Classes Attended: No (03/10/2016 07:50:Zara Hua RN) Consent: N/A (03/10/2016 07:50:Zara Hua RN) Consent Signed: N/A (03/10/2016 07:50:Zara Hua RN) Pain Management Plans: Epidural (03/10/2016 07:50:Zara Hua RN) Plans for Labor and Delivery: None (03/10/2016 07:50:Zara Hua RN) Support Person: Chaka (03/10/2016 07:50:Zara Hua RN) Support Person Relationship: (03/10/2016 07:50:Zara Hua RN) Cultural/Spritual Practice: No (03/10/2016 07:50:Zara Hua RN) Spir/Cult Dietary Needs: No (03/10/2016 07:50:Zara Hua RN) LIVING SITUATION/DISCHARGE PLAN Adequate Access to:: Electric; Heat; Refrigeration; Plumbing/Running water; Phone; Transportation (03/10/2016 07:50:Zara Hua RN) Discharge Rn Document Improvement Specialist Person: Chaka (03/10/2016 07:50:Zara Hua RN) Person to Help after Discharge: Chaka (03/10/2016 07:50:Zara Hua RN) Currently Using Commun Resources: No (03/10/2016 07:50:Zara Hua RN) Outside Agency/Concrete Curer: No (03/10/2016 07:50:Zara Hua RN) Car Seat for Discharge: Yes (03/10/2016 07:50:Zara Hua RN) Adoption Requested: No (03/10/2016 07:50:Zara Hua RN) Pt Contact w/infant Post : N/A (03/10/2016 07:50:Zara Hua RN) LABS Blood Type: O Positive (03/10/2016 07:50:Valencia Douglas RN) Antibody Screen: Negative (03/10/2016 07:50:Valencia Douglas RN) Rho(G) this : Not Applicable (03/10/2016 07:50:Zara Hua RN) Hemoglobin: 11.5 L (04/04/2016 21:47:QS system process) Hematocrit: 33.6 L (04/04/2016 21:47:QS system process) MCV: 91 (04/04/2016 21:47:QS system process) Group Beta Strep: negative (03/10/2016 07:50:Valencia Douglas RN) Gonorrhea: Negative (03/10/2016 07:50:Valencia Douglas RN) Chlamydia: Negative (03/10/2016 07:50:Valencia Douglas RN) RPR/VDRL: Nonreactive (03/10/2016 07:50:Valencia Douglas RN) HIV Results: non-reactive (03/10/2016 07:50:Valencia Douglas RN) Hepatitis B: Negative (03/10/2016 07:50:Valencia Douglas RN) Rubella: Immune (03/10/2016 07:50:Valencia Douglas RN) Varicella: Non Susceptible (03/10/2016 07:50:Valencia Douglas RN) HgB A1c: 5.5 (07/14/2015 07:50:QS system process) OB/PREVIOUS HISTORY Previous Procedures: Ultrasound; NST (03/10/2016 07:50:Zara Hua RN) Current Procedures: Ultrasound; NST (03/10/2016 07:50:Zara Hua RN) History of Previous : No (03/10/2016 07:50:Zara Hua RN) History of Gestational Diabetes: No (03/10/2016 07:50:Zara Hua RN) History of PIH: No (03/10/2016 07:50:Zara Hua RN) History of Incompetent Cervix: No (03/10/2016 07:50:Zara Hua RN) History of Placenta Previa/Abrup: No (03/10/2016 07:50:Zara Hua RN) History of Macrosomia: No (03/10/2016 07:50:Zara Hua RN) History of IUGR: No (03/10/2016 07:50:Zara Hua RN) History of Hemorrhage: No (03/10/2016 07:50:Zara Hua RN) History of Loss/Stillborn: No (03/10/2016 07:50:Zara Hua RN) History of : No (03/10/2016 07:50:Zara Hua RN) History of D (Rh) Sensitization: No (03/10/2016 07:50:Zara Hua RN) History Recurrent Loss/Stillborn: No (03/10/2016 07:50:Zara Hua RN) History Depression/PP Depression: No (03/10/2016 07:50:Zara Hua RN) History of Uterine Anomaly/RAMON: No (03/10/2016 07:50:Zara Hua RN) History of Infertility: No (03/10/2016 07:50:Zara Hua RN) History of ART Treatment: No (03/10/2016 07:50:Zara Hua RN) History of RAMON: No (03/10/2016 07:50:Zara Hua RN) Comments Obstetrical History: G1-1990 36.4 wks gest female 6lbs 13 oz G2-1995 37 wks gest female 6lbs 15oz G3-1998 SAB G4-1998 37 wks gest male 6lbs 10 oz G5-2000 37 wks gest female 5lbs 10oz G6-2004 37 wks gest female 6lbs 11oz G7-2006 37 wks gest male 7lbs 11oz G8-2012 39 wks gest female 7lbs 14oz G9-2014 38.6 wks gest male 7lbs 11 oz [id number] (03/10/2016 07:50:Zara Hua RN) MEDICAL HISTORY Med Hx Diabetes: No (03/10/2016 07:50:Zara Hua RN) Med Hx Hypertension: Yes (03/10/2016 07:50:Valencia Douglas RN) Med Hx Heart Disease: No (03/10/2016 07:50:Zara Hua RN) Med Hx Autoimmune Disorder: No (03/10/2016 07:50:Zara Hua RN) Med Hx Kidney Disease/UTI: No (03/10/2016 07:50:Zara Hua RN) Med Hx Neurologic/Epilepsy: No (03/10/2016 07:50:Zara Hua RN) Med Hx Psychiatric Disorders: No (03/10/2016 07:50:Zara Hua RN) Med Hx Hepatitis/Liver Disease: No (03/10/2016 07:50:Zara Hua RN) Med Hx Varicosities/Phlebitis: No (03/10/2016 07:50:Zara Hua RN) Med Hx Thyroid Dysfunction: No (03/10/2016 07:50:Zara Hua RN) Med Hx Trauma/Violence: No (03/10/2016 07:50:Zara Hua RN) Med Hx Blood Transfusion: No (03/10/2016 07:50:Zara Hua RN) Med Hx Pulmonary (Asthma,TB): No (03/10/2016 07:50:Zara Hua RN) Med Hx Breast: No (03/10/2016 07:50:Zara Hua RN) Med Hx ACCOUNTS RECEIVABLE COORDINATOR Surgery: No (03/10/2016 07:50:Zara Hua RN) Med Hx Hospitalization/Surgery: Yes (03/10/2016 07:50:Zara Hua RN) Med Hx Anesthetic Complications: No (03/10/2016 07:50:Zara Hua RN) Med Hx Abnormal Pap Smear: No (03/10/2016 07:50:Zara Hua RN) Other Medical Diseases: Yes (03/10/2016 07:50:Valencia Douglas RN) Med Hx Significant Family Hx: No (03/10/2016 07:50:Zara Hua RN) Details of Med/Surg Hx: CHTN-was on Aldomet then changed to labetalol; anemia; 2007-tubal ligation (failed); childbirth (03/10/2016 07:50:Zara Hua RN) INFECTIOUS HISTORY Inf Hx Gonorrhea: No (03/10/2016 07:50:Zara Hua RN) Inf Hx Chlamydia: No (03/10/2016 07:50:Zara Hua RN) Inf Hx Syphilis: No (03/10/2016 07:50:Zara Hua RN) Inf Hx HIV/AIDS: No (03/10/2016 07:50:Zara Hua RN) Inf Hx Human Papilloma Virus: No (03/10/2016 07:50:Zara Hua RN) Inf Hx Pt/Partner Genital Herpes: No (03/10/2016 07:50:Zara Hua RN) Inf Hx Tuberculosis/Exposure: No (03/10/2016 07:50:Zara Hua RN) Inf Hx Hepatitis B,C: No (03/10/2016 07:50:Zara Hua RN) Inf Hx Rash or Viral Illness: No (03/10/2016 07:50:Zara Hua RN) GENETIC HISTORY Gen Hx Age >=35 at YENNY: No (03/10/2016 07:50:Zara Hua RN) Gen Hx Thalassemia: No (03/10/2016 07:50:Zara uHa RN) Gen Hx Congenital Heart Defect: No (03/10/2016 07:50:Zara Hua RN) Gen Hx Neural Tube Defect: No (03/10/2016 07:50:Zara Hua RN) Gen Hx Down's Syndrome: No (03/10/2016 07:50:Zara Hua RN) Gen Hx Darin-Sachs: No (03/10/2016 07:50:Zara Hua RN) Gen Hx Lorri: No (03/10/2016 07:50:Zara Hua RN) Gen Hx Familial Dysautonomia: No (03/10/2016 07:50:Zara Hua RN) Gen Hx Sickle Cell Disease/Trait: No (03/10/2016 07:50:Zara Hua RN) Gen Hx Hemophilia/Blood Disorder: No (03/10/2016 07:50:Zara Hua RN) Gen Hx Muscular Dystrophy: No (03/10/2016 07:50:Zara Hua RN) Gen Hx Cystic Fibrosis: No (03/10/2016 07:50:Zara Hua RN) Gen Hx Huntingtons Chorea: No (03/10/2016 07:50:Zara Hua RN) Gen Hx Mental Retardation/Autism: No (03/10/2016 07:50:Zara Hua RN) Gen Hx Tested for Fragile X: No (03/10/2016 07:50:Zara Hua RN) Gen Hx Other Inher/Chromosomal: No (03/10/2016 07:50:Zara Hua RN) Gen Hx Maternal Metabolic DO: No (03/10/2016 07:50:Zara Hua RN) Gen Hx Pt Father or FOB Defect: No (03/10/2016 07:50:Zara Hua RN) Gen Hx Other Genetic History: No (03/10/2016 07:50:Zara Hua RN) Gen Hx Drugs/Meds since LMP: No (03/10/2016 07:50:Zara Hua RN)
[2016-04-05 07:25] LABS: ABSOLUTE EOSINOPHILS # (AUTO) 0.1 10^3/uL (0.0-0.6); ABSOLUTE LYMPHOCYTES (AUTO) 2.2 10^3/uL (0.5-4.7); ABSOLUTE MONOCYTES (AUTO) 0.7 10^3/uL (0.1-1.4); ABSOLUTE NEUT (AUTO) 6.2 10^3/uL (1.7-8.2); BASOPHILS % (AUTO) 0.4 % (0-2); EOSINOPHILS % (AUTO) 1.1 % (0-6); HEMATOCRIT 33.5 % (36.0-47.0); HEMOGLOBIN 11.1 g/dL (12.0-15.5); HGB HCT DIFFERENCE -0.2; LYMPHOCYTES % (AUTO) 23.8 % (13-45); MEAN CORPUSCULAR HEMOGLOBIN 30.5 pg (27.0-33.4); MEAN CORPUSCULAR HGB CONC 33.1 g/dL (32.0-36.0); MEAN CORPUSCULAR VOLUME 92 fl (80-97); MONOCYTES % (AUTO) 7.8 % (3-13); RED BLOOD COUNT 3.64 10^6/uL (3.72-5.28); RED CELL DISTRIBUTION WIDTH 13.6 % (11.5-14.0); SEGMENTED NEUTROPHILS % (AUTO) 66.9 % (42-78); WHITE BLOOD COUNT 9.3 10^3/uL (4.0-10.5)
[2016-04-05 07:43] LABS: ALANINE AMINOTRANSFERASE 23 U/L (9-52); ALKALINE PHOSPHATASE 122 U/L (38-126); ANION GAP 9 (5-19); ASPARTATE AMINO TRANSFERASE 20 U/L (14-36); BILIRUBIN,TOTAL 0.3 mg/dL (0.2-1.3); BLOOD UREA NITROGEN 7 mg/dL (7-20); CALCIUM 8.6 mg/dL (8.4-10.2); CARBON DIOXIDE 22 mmol/L (22-30); CHLORIDE 105 mmol/L (98-107); CREATININE RESULT 0.48 mg/dL (0.52-1.25); GLUCOSE 81 mg/dL (75-110); LDH 321 U/L (313-618); POTASSIUM 3.6 mmol/L (3.6-5.0); SODIUM 135.9 mmol/L (137-145); TOTAL PROTEIN 6.5 g/dL (6.3-8.2); URIC ACID 3.3 mg/dL (2.5-7.0)
--- NOTE | 2016-04-05 08:01 | L&D Flow Sheet ---
LD Flowsheet Datetime Report Generated by CPN: 04/05/2016 08:00 Datetime: 04/05/2016 07:57 NBP Sys/Che/Mean (mmHg): 132 (QS system process) : 86 (QS system process) : 104 (QS system process) Pulse: 82 (QS system process) Pitocin (milliunit): Pitocin Increased to (milliunits) @ 8 (Yuliya Mikaela, RN) LaborFlag: Antepartum (QS system process) Datetime: 04/05/2016 07:25 Pitocin (milliunit): Pitocin Increased to (milliunits) @ 6 (Yuliya Al, RN) Patient Care Comments: pt sitting up in bed listening to music, in no current distress (Yuliya Mikeala, RN) Datetime: 04/05/2016 07:15 Monitor Mode: External (Yuliya Mikaela, RN) Frequency (min): 6 (Yuliya Mikaela, RN) Quality: Mild (Yuliya Mikaela, RN) Duration (sec): 140-160 (Yuliya Mikaela, RN) Resting Tone (Palpate): Relaxed (Yuliya Mikaela, RN) Monitor Mode: External US (Yuliya Mikaela, RN) FHR Baseline Rate : 125 (Yuliya Mikaela, RN) Variability: Moderate 6-25 bpm (Yuliya Mikaela, RN) Accelerations: 15X15 (Yuliya Mikaela, RN) Decelerations: None (Yuliya Mikaela, RN) Datetime: 04/05/2016 07:11 Communication Comments: Report given and care relinquished to A. Mikaela, RN. (Zara Lattibeaudeir, RN) Datetime: 04/05/2016 07:00 Monitor Mode: External (Zara Lattibeaudeir, RN) Frequency (min): 3-6 (Zara Lattibeaudeir, RN) Quality: Mild/Moderate (Zara Lattibeaudeir, RN) Duration (sec): 70-130 (Zara Lattibeaudeir, RN) Resting Tone (Palpate): Relaxed (Zara Lattibeaudeir, RN) Monitor Mode: External US (Zara Lattibeaudeir, RN) FHR Baseline Rate : 120 (Zara Lattibeaudeir, RN) Variability: Moderate 6-25 bpm (Zara Lattibeaudeir, RN) Accelerations: 15X15 (Zara Lattibeaudeir, RN) Decelerations: None (Zara Lattibeaudeir, RN) Pitocin (milliunit): Pitocin Remains (milliunits) @ 4 (Zara Lattibeaudeir, RN) Datetime: 04/05/2016 06:57 NBP Sys/Che/Mean (mmHg): 129 (QS system process) : 79 (QS system process) : 99 (QS system process) Pulse: 76 (QS system process) LaborFlag: Antepartum (QS system process) Datetime: 04/05/2016 06:47 Pitocin (milliunit): Pitocin Increased to (milliunits) @ 4 (Zara Lattibeaudeir, RN) Datetime: 04/05/2016 06:45 Monitor Mode: External (Zara Lattibeaudeir, RN) Frequency (min): x2 (Zara Lattibeaudeir, RN) Quality: Mild/Moderate (Zara Lattibeaudeir, RN) Duration (sec): 90-100 (Zara Lattibeaudeir, RN) Resting Tone (Palpate): Relaxed (Zara Lattibeaudeir, RN) Monitor Mode: External US (Zara Lattibeaudeir, RN) FHR Baseline Rate : 125 (Zara Lattibeaudeir, RN) Variability: Moderate 6-25 bpm (Zara Lattibeaudeir, RN) Accelerations: None (Zara Lattibeaudeir, RN) Decelerations: None (Zara Lattibeaudeir, RN) Pitocin (milliunit): Pitocin Remains (milliunits) @ 2 (Zara Lattibeaudeir, RN) Datetime: 04/05/2016 06:30 Monitor Mode: External (Zara Lattibeaudeir, RN) Frequency (min): 2.5-11 (Zara Lattibeaudeir, RN) Quality: Mild/Moderate (Zara Lattibeaudeir, RN) Duration (sec): 60-190 (Zara Lattibeaudeir, RN) Resting Tone (Palpate): Relaxed (Zara Lattibeaudeir, RN) Monitor Mode: External US (Zara Lattibeaudeir, RN) FHR Baseline Rate : 125 (Zara Lattibeaudeir, RN) Variability: Moderate 6-25 bpm (Zara Lattibeaudeir, RN) Accelerations: 15X15 (Zara Lattibeaudeir, RN) Datetime: 04/05/2016 06:09 Pitocin (milliunit): Pitocin Started (milliunits) @ 2 (Zara Lattibeaudeir, RN) Datetime: 04/05/2016 06:08 IV/Blood Work: New IV Bag Hung; IV Bag Number @ 2 (Zara Lattibeaudeir, RN) Datetime: 04/05/2016 06:00 Monitor Mode: External (Zara Lattibeaudeir, RN) Frequency (min): x2 (Zara Lattibeaudeir, RN) Quality: Mild/Moderate (Zara Lattibeaudeir, RN) Duration (sec): 140-160 (Zara Lattibeaudeir, RN) Resting Tone (Palpate): Relaxed (Zara Lattibeaudeir, RN) Monitor Mode: External US (Zara Lattibeaudeir, RN) FHR Baseline Rate : 120 (Zara Lattibeaudeir, RN) Variability: Moderate 6-25 bpm (Zara Lattibeaudeir, RN) Accelerations: 15X15 (Zara Lattibeaudeir, RN) Datetime: 04/05/2016 05:58 NBP Sys/Che/Mean (mmHg): 130 (QS system process) : 76 (QS system process) : 98 (QS system process) Pulse: 73 (QS system process) LaborFlag: Antepartum (QS system process) Datetime: 04/05/2016 05:30 Monitor Mode: External (Zara Lattibeaudeir, RN) Frequency (min): 3-15 (Zara Lattibeaudeir, RN) Quality: Mild/Moderate (Zara Lattibeaudeir, RN) Duration (sec): 50-150 (Zara Lattibeaudeir, RN) Resting Tone (Palpate): Relaxed (Zara Lattibeaudeir, RN) Monitor Mode: External US (Zara Lattibeaudeir, RN) FHR Baseline Rate : 120 (Zara Lattibeaudeir, RN) Variability: Moderate 6-25 bpm (Zara Lattibeaudeir, RN) Accelerations: 15X15 (Zara Lattibeaudeir, RN) Decelerations: None (Zara Lattibeaudeir, RN) Datetime: 04/05/2016 05:00 Monitor Mode: External (Zara Lattibeaudeir, RN) Frequency (min): 13-14 (Zara Lattibeaudeir, RN) Quality: Mild/Moderate (Zara Lattibeaudeir, RN) Duration (sec): 50-160 (Zara Lattibeaudeir, RN) Resting Tone (Palpate): Relaxed (Zara Lattibeaudeir, RN) Monitor Mode: External US (Zara Lattibeaudeir, RN) FHR Baseline Rate : 120 (Zara Lattibeaudeir, RN) Variability: Moderate 6-25 bpm (Zara Lattibeaudeir, RN) Accelerations: 15X15 (Zara Lattibeaudeir, RN) Datetime: 04/05/2016 04:59 NBP Sys/Che/Mean (mmHg): 118 (QS system process) : 80 (QS system process) : 93 (QS system process) Pulse: 84 (QS system process) LaborFlag: Antepartum (QS system process) Datetime: 04/05/2016 04:58 Patient Care Comments: RN at bedside re-applying BP cuff. (Zara Lattibeaudeir, RN) Datetime: 04/05/2016 04:30 Monitor Mode: External (Zara Lattibeaudeir, RN) Frequency (min): 2-9 (Zara Lattibeaudeir, RN) Quality: Mild/Moderate (Zara Lattibeaudeir, RN) Duration (sec): 50-120 (Zara Lattibeaudeir, RN) Resting Tone (Palpate): Relaxed (Zara Lattibeaudeir, RN) Monitor Mode: External US (Zara Lattibeaudeir, RN) FHR Baseline Rate : 120 (Zara Lattibeaudeir, RN) Variability: Moderate 6-25 bpm (Zara Lattibeaudeir, RN) Accelerations: 15X15 (Zara Lattibeaudeir, RN) Datetime: 04/05/2016 04:00 Monitor Mode: External (Zara Lattibeaudeir, RN) Frequency (min): x2 (Zara Lattibeaudeir, RN) Quality: Mild/Moderate (Zara Lattibeaudeir, RN) Duration (sec): 70-140 (Zara Lattibeaudeir, RN) Resting Tone (Palpate): Relaxed (Zara Lattibeaudeir, RN) Monitor Mode: External US (Zara Lattibeaudeir, RN) FHR Baseline Rate : 120 (Zara Lattibeaudeir, RN) Variability: Moderate 6-25 bpm (Zara Lattibeaudeir, RN) Accelerations: 15X15 (Zara Lattibeaudeir, RN) Datetime: 04/05/2016 03:52 I/O Interventions: Up to BR (Zara Lattibeaudeir, RN) Datetime: 04/05/2016 03:30 Monitor Mode: External (Zara Lattibeaudeir, RN) Frequency (min): 10-11.5 (Zara Lattibeaudeir, RN) Quality: Mild/Moderate (Zara Lattibeaudeir, RN) Duration (sec): 70-90 (Zara Lattibeaudeir, RN) Resting Tone (Palpate): Relaxed (Zara Lattibeaudeir, RN) Monitor Mode: External US (Zara Lattibeaudeir, RN) FHR Baseline Rate : 120 (Zara Lattibeaudeir, RN) Variability: Moderate 6-25 bpm (Zara Lattibeaudeir, RN) Accelerations: 15X15 (Zara Lattibeaudeir, RN) Datetime: 04/05/2016 03:20 NBP Sys/Che/Mean (mmHg): 114 (QS system process) : 65 (QS system process) : 85 (QS system process) Pulse: 72 (QS system process) LaborFlag: Antepartum (QS system process) Datetime: 04/05/2016 03:00 Monitor Mode: External (Zara Lattibeaudeir, RN) Frequency (min): 10-11 (Zara Lattibeaudeir, RN) Quality: Mild/Moderate (Zara Lattibeaudeir, RN) Duration (sec): 70-150 (Zara Lattibeaudeir, RN) Resting Tone (Palpate): Relaxed (Zara Lattibeaudeir, RN) Monitor Mode: External US (Zara Lattibeaudeir, RN) FHR Baseline Rate : 115 (Zara Lattibeaudeir, RN) Variability: Minimal - Undetectable to <=5 bpm (Zara Lattibeaudeir, RN) Datetime: 04/05/2016 02:57 Monitor Interventions for FHR: Ultrasound Adjusted (Zara Lattibeaudeir, RN) Datetime: 04/05/2016 02:52 Monitor Interventions for FHR: Ultrasound Adjusted (Zara Lattibeaudeir, RN) Datetime: 04/05/2016 02:41 Monitor Interventions for FHR: Ultrasound Adjusted (Zara Lattibeaudeir, RN) Datetime: 04/05/2016 02:30 Monitor Mode: External (Zara Lattibeaudeir, RN) Frequency (min): 11-19 (Zara Lattibeaudeir, RN) Quality: Mild/Moderate (Zara Lattibeaudeir, RN) Duration (sec): 90-100 (Zara Lattibeaudeir, RN) Resting Tone (Palpate): Relaxed (Zara Lattibeaudeir, RN) Monitor Mode: External US (Zara Lattibeaudeir, RN) FHR Baseline Rate : 115 (Zara Lattibeaudeir, RN) Datetime: 04/05/2016 02:20 NBP Sys/Che/Mean (mmHg): 111 (QS system process) : 66 (QS system process) : 84 (QS system process) Pulse: 75 (QS system process) LaborFlag: Antepartum (QS system process) Datetime: 04/05/2016 02:00 Monitor Mode: External (Zara Lattibeaudeir, RN) Frequency (min): 2-7.5 (Zara Lattibeaudeir, RN) Quality: Mild/Moderate (Zara Lattibeaudeir, RN) Duration (sec): 50-100 (Zara Lattibeaudeir, RN) Resting Tone (Palpate): Relaxed (Zara Lattibeaudeir, RN) Monitor Mode: External US (Zara Lattibeaudeir, RN) FHR Baseline Rate : 120 (Zara Lattibeaudeir, RN) Variability: Moderate 6-25 bpm (Zara Lattibeaudeir, RN) Accelerations: 15X15 (Zara Lattibeaudeir, RN) Datetime: 04/05/2016 01:30 Monitor Mode: External (Zara Lattibeaudeir, RN) Frequency (min): x2 (Zara Lattibeaudeir, RN) Quality: Mild/Moderate (Zara Lattibeaudeir, RN) Duration (sec): 90-100 (Zara Lattibeaudeir, RN) Resting Tone (Palpate): Relaxed (Zara Lattibeaudeir, RN) Monitor Mode: External US (Zara Lattibeaudeir, RN) FHR Baseline Rate : 125 (Zara Lattibeaudeir, RN) Variability: Moderate 6-25 bpm (Zara Lattibeaudeir, RN) Datetime: 04/05/2016 01:21 NBP Sys/Hce/Mean (mmHg): 123 (QS system process) : 68 (QS system process) : 90 (QS system process) Pulse: 77 (QS system process) LaborFlag: Antepartum (QS system process) Datetime: 04/05/2016 01:17 Monitor Interventions for UA: [place] Adjusted (Zara Lattibeaudeir, RN) Datetime: 04/05/2016 01:00 Pain Scale: 3 (Zara Lattibeaudeir, ) Pain Presence: Intermittent (Zara Lattibeaudeir, ) Pain Type: Cramping ([facility] Lattibeaude, ) Pain Location: Abdomen; Back; Head ([facility] Lattibeaudeir, ) Pain Relief Measures: Comfort Measures ([facility] Lattibeaudeir, ) LaborFlag: Antepartum (QS system process) Datetime: 04/05/2016 00:53 Comments: Monitors re-applied as pt is stating that her contractions are more painful and regular. (Zara Lattibeaudeir, RN) Datetime: 04/05/2016 00:20 NBP Sys/Che/Mean (mmHg): 103 (QS system process) : 60 (QS system process) : 76 (QS system process) Pulse: 82 (QS system process) LaborFlag: Antepartum (QS system process) Datetime: 04/04/2016 23:21 Communication Comments: Informed pt to let me know if her contractions start to feel consistent and I will put the monitor back on her earlier than her NST Q 4. Pt verbalized understanding. (Zara Lupetiblily, RN) Datetime: 04/04/2016 23:20 NBP Sys/Che/Mean (mmHg): 124 (QS system process) : 76 (QS system process) : 95 (QS system process) Pulse: 81 (QS system process) LaborFlag: Antepartum (QS system process) Datetime: 04/04/2016 23:19 Monitor Mode: External (Zara Lattibeaudeir, RN) Frequency (min): x2 (Zara Lattibeaudeir, RN) Quality: Mild/Moderate (Zara Lattibeaudeir, RN) Duration (sec): 60-130 (Zara Lattibeaudeir, RN) Resting Tone (Palpate): Relaxed (Zara Lattibeaudeir, RN) Contraction Comments: toco removed (Zara Lattibeaudeir, RN) Monitor Mode: External US (Zara Lattibeaudeir, RN) FHR Baseline Rate : 135 (Zara Lattibeaudeir, RN) Variability: Moderate 6-25 bpm (Zara Lattibeaudeir, RN) Accelerations: 15X15 (Zara Lattibeaudeir, RN) Comments: FHR monitor removed (Zara Lattibeaudeir, RN) Datetime: 04/04/2016 23:00 Monitor Mode: External (Zara Lattibeaudeir, RN) Frequency (min): 2-9 (Zara Lattibeaudeir, RN) Quality: Mild/Moderate (Zara Lattibeaudeir, RN) Duration (sec): 50-110 (Zara Lattibeaudeir, RN) Resting Tone (Palpate): Relaxed (Zara Lattibeaudeir, RN) Monitor Mode: External US (Zara Lattibeaudeir, RN) FHR Baseline Rate : 145 (Zara Lattibeaudeir, RN) Variability: Moderate 6-25 bpm (Zara Lattibeaudeir, RN) Accelerations: 15X15 (Zara Lattibeaudeir, RN) Decelerations: Prolonged (Zaar Lattibeaudeir, RN) Datetime: 04/04/2016 22:53 Communication Comments: Per Dr. Rodrigez BP hourly and NST every 4 hours. (Zara Lattibeaudeir, RN) Datetime: 04/04/2016 22:30 Monitor Mode: External (Zara Lattibeaudeir, RN) Frequency (min): 3-9 (Zara Lattibeaudeir, RN) Quality: Mild/Moderate (Zara Lattibeaudeir, RN) Duration (sec): 80-110 (Zara Lattibeaudeir, RN) Resting Tone (Palpate): Relaxed (Zara Lattibeaudeir, RN) Monitor Mode: External US (Zara Lattibeaudeir, RN) FHR Baseline Rate : 135 (Zara Lattibeaudeir, RN) Variability: Moderate 6-25 bpm (Zara Lattibeaudeir, RN) Accelerations: 15X15 (Zara Lattibeaudeir, RN) Datetime: 04/04/2016 22:20 Communication Comments: Informed patient of physician orders. Pt verbalized understanding and denies any questions at this time. (Zara Lattibeaudeir, RN) Datetime: 04/04/2016 22:05 Communication Comments: Informed Dr. Rodrigez of E. Received orders for pt to rest tonight and start Pitocin at 0600. (Zara Lattibeaudeir, RN) Datetime: 04/04/2016 22:04 Dilatation (cm): 3.0 (Zara Andradetibeanadineir, RN) Effacement (%): 70 (Zara Hua, RN) Station: -2 (Zara Hua, RN) Exam by: Laney Hua RN (Zara Lattiblily, RN) Membrane Status: Intact (Zara Andradetiblily, RN) Vaginal Bleeding: None (Zara Lattiblily, RN) Cervix, Consistency: Soft (Zara Lattibeanadineir, RN) Cervix, Position: Midposition (Zara Lattibeanadineir, RN) Datetime: 04/04/2016 22:01 NBP Sys/Che/Mean (mmHg): 141 (QS system process) : 88 (QS system process) : 110 (QS system process) Pulse: 106 (QS system process) Temperature (F): 97.9 (Zara Lattibeaudeir, RN) Temperature (C): 36.6 (QS system process) Temperature Route: Oral (Zara Lattibeaudeir, RN) LaborFlag: Antepartum (QS system process) Datetime: 04/04/2016 22:00 Monitor Mode: External (Zara Lattibeaudeir, RN) Frequency (min): 3.5-10 (Zara Lattibeaudeir, RN) Quality: Mild/Moderate (Zara Lattibeaudeir, RN) Duration (sec): 70-90 (Zara Lattibeaudeir, RN) Resting Tone (Palpate): Relaxed (Zara Lattibeaudeir, RN) Monitor Mode: External US (Zara Lattibeaudeir, RN) FHR Baseline Rate : 135 (Zara Lattibeaudeir, RN) Variability: Moderate 6-25 bpm (Zara Lattibeaudeir, RN) Accelerations: Prolonged (Zara Lattibeaudeir, RN) Decelerations: None (Zara Lattibeaudeir, RN) Datetime: 04/04/2016 21:31 Stage of : Antepartum (Zara Lattibeaudeir, RN) NBP Sys/Che/Mean (mmHg): 132 (QS system process) : 87 (QS system process) : 105 (QS system process) Pulse: 99 (QS system process) LaborFlag: Antepartum (QS system process) Datetime: 04/04/2016 21:30 Monitor Mode: External (Zara Lattibeaudeir, RN) Frequency (min): x2 (Zara Lattibeaudeir, RN) Quality: Mild/Moderate (Zara Lattibeaudeir, RN) Duration (sec): 60 (Zara Lattibeaudeir, RN) Resting Tone (Palpate): Relaxed (Zara Lattibeaudeir, RN) Monitor Mode: External US (Zara Lattibeaudeir, RN) FHR Baseline Rate : 125 (Zara Lattibeaudeir, RN) Variability: Moderate 6-25 bpm (Zara Lattibeaudeir, RN) Decelerations: None (Zara Lattibeaudeir, RN) Datetime: 04/04/2016 21:28 IV/Blood Work: IV Started; IV Bolus Started (Valencia Douglas RN) Patient Care Comments: 18 g started in L forearm (Valencia Douglas RN) Datetime: 04/04/2016 21:25 Procedures: Consents Signed (Zara Lattibeaudeir, RN) Datetime: 04/04/2016 21:12 Contraction Comments: toco applied (Zara Lattibeaudeir, RN) Datetime: 04/04/2016 21:11 Comments: FHR monitor applied (Zara Lattibeaudeir, RN)
[2016-04-05] MEDS ORDERED: LIDOCAINE 1% INJ-PF (10 MG/ML) 30 ML SDV ONE (09:56)
[2016-04-05] MEDS ORDERED: MISOPROSTOL 0.2 MG TABLET ONE (09:56)
[2016-04-05] MEDS ORDERED: OXYTOCIN/NORMAL SALINE 20 UNIT/1,000 ML RTUINJ ONE (09:56)
[2016-04-05] MEDS ORDERED: CARBOPROST TROMETHAMINE INJ 250 MCG/1 ML AMPULE ONE (09:57)
--- NOTE | 2016-04-05 10:28 | L&D Progress Notes ---
PROGRESS NOTES Datetime Report Generated by CPN: 04/05/2016 10:28 PROGRESS NOTE Impression: Rupture of Membranes Procedures: Artificial ROM Plan: Continue Present Management; Induction Informed Consent Obtained: Vaginal Delivery; Risks, Benefits and Alternatives Discussed Vital Signs : Reviewed Comment: 41 yo admitted for induction of labor failed BTL 2007 chronic hypertension on labetalol 200 mg po qd Anemia failed BTL 2007 abdomen nontender FHTs reactive - category 1 contractions q 2-3 min pitocin at 14 milliunits/min AMA CHTN Anemia arom ruptured anc clear plan of care reviewed with pt vss anticipate pt desires epidural for pain VAGINAL EXAM Dilatation: 5 Effacement: 75 Station: 0 MEMBRANES Membranes: Ruptured FETUS A Monitoring: External US Variability: Moderate 6-25bpm Accelerations: 15X15 Decelerations: None FHR Category: Category I SIGNATURE SIGNATURE: [id number] SIGNATURE: [id number] Assignment: Lizeth Anguiano MD Signature: with User ID: [email or web address] : with User ID: [email or web address]
[2016-04-05] MEDS ORDERED: DIBUCAINE 1% OINTMENT 28 GM TP PRN (11:57)
[2016-04-05] MEDS ORDERED: ZOLPIDEM TARTRATE 5 MG TABLET PO PRN (11:57)
[2016-04-05] MEDS ORDERED: OXYTOCIN/NORMAL SALINE 1,000 ML IV PRN (11:57)
[2016-04-05] MEDS ORDERED: MEASLES,MUMPS&RUBELLA VACC/PF 0.5 ML VIAL SUBCUT PRN (11:57)
[2016-04-05] MEDS ORDERED: BENZOCAINE/MENTHOL AEROSOL SPRAY 56 ML TOP PRN (11:57)
[2016-04-05] MEDS ORDERED: DIPH/PERTUSS(ACELL)/TETANUS VAC/PF 0.5 ML SYR (>=10YO) IM PRN (11:57)
--- NOTE | 2016-04-05 12:01 | L&D Flow Sheet ---
LD Flowsheet Datetime Report Generated by CPN: 04/05/2016 12:00 Datetime: 04/05/2016 11:55 Vital Signs NBP Sys/Che/Mean (mmHg): 121 (QS system process) : 68 (QS system process) : 89 (QS system process) Pulse: 83 (QS system process) LaborFlag: Antepartum (QS system process) Datetime: 04/05/2016 11:26 Vital Signs NBP Sys/Che/Mean (mmHg): 124 (QS system process) : 72 (QS system process) : 93 (QS system process) Pulse: 80 (QS system process) LaborFlag: Antepartum (QS system process) Datetime: 04/05/2016 11:19 Vaginal Exam Dilatation (cm): 10.0 (Yuliya Mikaela, RN) Effacement (%): 100 (Yuliya Mikaela, RN) Station: 2 (Yuliya Mikaela, RN) Exam by: Emmel, A (Yuliya Mikaela, RN) Stage 2 Preparation for Delivery: Setup for Delivery (Yuliya Mikaela, RN) Stage 2 Comments: A Emmel CNM present for impending delivery (Yuliya Mikaela, RN) Datetime: 04/05/2016 11:13 Vaginal Exam Dilatation (cm): 8.0 (Yuliya Al, JAVIER) Effacement (%): 100 (Yuliya Al, JAVIER) Station: 1 (Yuliya Al RN) Exam by: Aurelia Al (Yuliya Al, JAVIER) Vaginal Bleeding: Normal Show (Yuliya Al, JAVIER) Cervix, Consistency: Soft (Yuliya Al, JAVIER) Cervix, Position: Anterior (Yuliya Al, JAVIER) Datetime: 04/05/2016 10:09 Vaginal Exam Dilatation (cm): 5.0 (Yuliya Al, JAVIER) Exam by: A. Emmhenna CNM (Yuliya Al, JAVIER) Communication Communication Comments: A. Emmel CNM at bedside (Yuliya Mikaela, RN) Datetime: 04/05/2016 09:58 Vital Signs NBP Sys/Che/Mean (mmHg): 123 (QS system process) : 58 (QS system process) : 84 (QS system process) Pulse: 82 (QS system process) LaborFlag: Antepartum (QS system process) Datetime: 04/05/2016 09:51 Vaginal Exam Dilatation (cm): 5.0 (Yuliya Al RN) Effacement (%): 75 (Yuliya Al RN) Station: 0 (Yuliya Al RN) Exam by: A. Olu CNAnjelica (Yuliya Al RN) Membrane Status: Ruptured (Yuliya lA RN) Membranes Rupture Method: Spontaneous (Yuliya Al RN) Amniotic Fluid Color: Clear (Yuliya Al RN) Amniotic Fluid Amount: Moderate (Yuliya Al RN) Amniotic Fluid Odor: Normal (Yuliya Al RN) Datetime: 04/05/2016 09:50 Medications Pitocin (milliunit): Pitocin Increased to (milliunits) @ 14 (Yuliya Mikaela, RN) Datetime: 04/05/2016 09:48 Vaginal Exam Dilatation (cm): 4.0 (Yuliya Mikaela, RN) Effacement (%): 70 (Yuliya Mikaela, RN) Station: -1 (Yuliya Mikaela, RN) Exam by: A. Emmel CNM (Yuliya Mikaela, RN) Datetime: 04/05/2016 09:46 Communication Communication Comments: A. Emmel CNM at bedside (Yuliya Mikaela, RN) Datetime: 04/05/2016 09:30 Uterine Activity Monitor Mode: External (Yuliya Mikaela, RN) Frequency (min): 2-6 (Yuliya Mikaela, RN) Quality: Moderate (Yuliya Mikaela, RN) Duration (sec): 50-70 (Yuliya Mikaela, RN) Resting Tone (Palpate): Relaxed (Yuliya Mikaela, RN) Assessment A Monitor Mode: External US (Yuliya Mikaela, RN) FHR Baseline Rate : 125 (Yuliya Mikaela, RN) Variability: Moderate 6-25 bpm (Yuliya Mikaela, RN) Accelerations: 10X10 (Yuliya Mikaela, RN) Decelerations: None (Yuliya Mikaela, RN) Datetime: 04/05/2016 09:20 Medications Pitocin (milliunit): Pitocin Increased to (milliunits) @ 12 (Subha Khan, RN) Datetime: 04/05/2016 09:15 Uterine Activity Monitor Mode: External (Yuliya Mikaela, RN) Frequency (min): 2-7 (Yuliya Mikaela, RN) Quality: Moderate (Yuliya Mikaela, RN) Duration (sec): 60-80 (Yuliya Mikaela, RN) Resting Tone (Palpate): Relaxed (Yuliya Mikaela, RN) Assessment A Monitor Mode: External US (Yuliya Mikaela, RN) FHR Baseline Rate : 125 (Yuliya Mikaela, RN) Variability: Moderate 6-25 bpm (Yuliya Mikaela, RN) Accelerations: 15X15 (Yuliya Mikaela, RN) Decelerations: None (Yuliya Mikaela, RN) Datetime: 04/05/2016 09:00 Uterine Activity Monitor Mode: External (Yuliya Mikaela, RN) Frequency (min): 2-3 (Yuliya Mikaela, RN) Quality: Mild/Moderate (Yuliya Mikaela, RN) Duration (sec): 60-90 (Yuliya Mikaela, RN) Resting Tone (Palpate): Relaxed (Yuliya Mikaela, RN) Assessment A Monitor Mode: External US (Yuliya Mikaela, RN) FHR Baseline Rate : 135 (Yuliya Mikaela, RN) Variability: Moderate 6-25 bpm (Yuliya Mikaela, RN) Accelerations: 15X15 (Yuliya Mikaela, RN) Decelerations: None (Yuliya Mikaela, RN) Datetime: 04/05/2016 08:58 Vital Signs NBP Sys/Che/Mean (mmHg): 131 (QS system process) : 76 (QS system process) : 98 (QS system process) Pulse: 80 (QS system process) LaborFlag: Antepartum (QS system process) Datetime: 04/05/2016 08:45 Uterine Activity Monitor Mode: External (Yuliya Mikaela, RN) Frequency (min): irreg (Yuliya Mikaela, RN) Quality: Mild/Moderate (Yuliya Mikaela, RN) Resting Tone (Palpate): Relaxed (Yuliya Mikaela, RN) Assessment A Monitor Mode: External US (Yuliya Mikaela, RN) FHR Baseline Rate : 125 (Yuliya Mikaela, RN) Variability: Moderate 6-25 bpm (Yuliya Mikaela, RN) Accelerations: 15X15 (Yuliay Mikaela, RN) Decelerations: None (Yuliya Mikaela, RN) Medications Pitocin (milliunit): Pitocin Increased to (milliunits) @ 10 (Yuliya Mikaela, RN) Datetime: 04/05/2016 08:44 Patient Care Patient Position/Activity: Left Tilt; Semi-Fowlers (Yuliya Mikaela, RN) Datetime: 04/05/2016 08:41 I/O Interventions: Up to BR (Yulyia Mikaela, RN) Datetime: 04/05/2016 08:30 Uterine Activity Monitor Mode: External (Yuliya Mikaela, RN) Frequency (min): 2-6 (Yuliya Mikaela, RN) Quality: Mild (Yuliya Mikaela, RN) Duration (sec): 70-90 (Yuliya Mikaela, RN) Resting Tone (Palpate): Relaxed (Yuliya Mikaela, RN) Assessment A Monitor Mode: External US (Yuliya Mikaela, RN) FHR Baseline Rate : 125 (Yuliya Mikaela, RN) Variability: Minimal - Undetectable to <=5 bpm (Yuliya Mikaela, RN) Accelerations: None (Yuliya Mikaela, RN) Decelerations: None (Yuliya Mikaela, RN) Datetime: 04/05/2016 08:15 Uterine Activity Monitor Mode: External (Yuliya Mikaela, RN) Frequency (min): 3-4 (Yuliya Mikaela, RN) Quality: Mild (Yuliya Mikaela, RN) Duration (sec): 60-90 (Yuliya Mikaela, RN) Resting Tone (Palpate): Relaxed (Yuliya Mikaela, RN) Assessment A Monitor Mode: External US (Yuliya Mikaela, RN) FHR Baseline Rate : 130 (Yuliya Mikaela, RN) Variability: Moderate 6-25 bpm (Yuliya Mikaela, RN) Accelerations: 15X15 (Yuliya Mikaela, RN) Decelerations: None (Yuliya Mikaela, RN) Datetime: 04/05/2016 08:00 Uterine Activity Monitor Mode: External; Palpation (Yuliya Mikaela, RN) Frequency (min): 3-5 (Yuliya Mikaela, RN) Quality: Mild (Yuliya Mikaela, RN) Duration (sec): 70-100 (Yuliya Mikaela, RN) Resting Tone (Palpate): Relaxed (Yuliya Mikaela, RN) Assessment A Monitor Mode: External US (Yuliya Mikaela, RN) FHR Baseline Rate : 130 (Yuliya Mikaela, RN) Variability: Moderate 6-25 bpm (Yuliya Mikaela, RN) Accelerations: 15X15 (Yuliya Mikaela, RN) Decelerations: None (Yuliya Mikaela, RN)
--- NOTE | 2016-04-05 13:49 | Admission Physical ---
Datetime Report Generated by CPN: 04/05/2016 13:49 CURRENT ADMISSION Hx Assessment: The History has been Reviewed and is Current Chief Complaint: Scheduled Induction of Labor Indication for Induction: Chronic Hypertension Admit Plan: Admit to Unit; Initiate Labor Induction Protocol ALLERGIES Medication Allergies: No Medication Allergies: No Known Allergies (03/15/2016) Latex: No Latex Allergies OBSTETRICAL HISTORY EDC: 04/18/2016 00:00 : 10 Para: 8 Term: 7 : 1 SAB: 1 IAB: 0 Ectopic: 0 Livin Cesareans: 0 VBACs: 0 Multiple Births: 0 Gestational Diabetes: No Rh Sensitization: No Incompetent Cervix: No RAMON: No Infertility: No ART Treatment: No Uterine Anomaly: No IUGR: No Hx Previous C/S: No Macrosomia: No Hx Loss/Stillborn: No PIH: No Hx : No Placenta Previa/Abruption: No Depression/PP Depression: No PTL/PROM: No Post Hemorrhage: No Current Procedures: Ultrasound; NST Obstetrical History Comments: G1-1990 36.4 wks gest female 6lbs 13 oz G2-1995 37 wks gest female 6lbs 15oz G3-1997 SAB G4-1998 37 wks gest male 6lbs 10 oz G5-2000 37 wks gest female 5lbs 10oz G6-2003 37 wks gest female 6lbs 11oz G7-2006 37 wks gest male 7lbs 11oz G8-2012 39 wks gest female 7lbs 14oz G9-2013 38.6 wks gest male 7lbs 11 oz [id number] SEE RECORDS Alcohol: No Marijuana : No Cocaine: No Other Illicit Drugs: No Cigarettes: Never Smoker. 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 Heart Disease: No Hosp/Surgery: Yes Autoimmune Disorder: No Anesthetic Complications: No Kidney Disease: No Abnormal Pap Smear: No Neuro/Epilepsy: No Psychiatric Disorders: No Other Medical Diseases: Yes Hepatitis/Liver Disease: No Significant Family History: No Varicosities/Phlebitis: No Trauma/Violence : No Thyroid Dysfunction: No Medical History Comments: CHTN-was on Aldomet then changed to labetalol; anemia; 2007-tubal ligation (failed); childbirth INFECTIOUS HISTORY Gonorrhea: No Genital Herpes: No Chlamydia: No Tuberculosis: No Syphilis: No Hepatitis: No HIV/AIDS Exposure: No Rash or Viral Illness: No HPV: No PHYSICAL EXAM General: Normal HEENT: Deferred Neurologic: Deferred Thyroid: Deferred Heart: Normal Lungs: Normal Breast: Deferred Back: Deferred Abdomen: Normal Genitourinary Exam: Normal Extremities: Normal DTRs: Normal Pelvic Type: Adequate Vital Signs: Reviewed; Within Normal Limits VAGINAL EXAM Dilatation: 5 Effacement: 75 Station: 0 MEMBRANES Membranes: Ruptured FETUS A EGA: 38.0 FHR- Baseline: 120 Variability: Moderate 6-25bpm Accelerations: 15X15 Decelerations: None FHR Category: Category I Admit Comment: Term induction for cHTN. Pt on labetolol daily. Grand multip- risk for pph. Pt does not want transfusion. Type and Screen drawn. will need to discuss again in am. GBS neg PLANS FOR LABOR AND DELIVERY Labor and Delivery: None Pain Management: Epidural Feeding Preference: Both Benefit of Breast Feed Discussed: Yes Circumcision: No INFORMED CONSENT Informed Consent Obtained: Vaginal Delivery; Risks, Benefits and Alternatives Discussed Signature: with User ID: [email or web address]
--- NOTE | 2016-04-05 16:01 | L&D Flow Sheet ---
LD Flowsheet Datetime Report Generated by CPN: 04/05/2016 16:00 Datetime: 04/05/2016 13:30 Respirations: 16 (Yuliya Mikaela, RN) Pain Pain Scale: 0 (Yuliya Mikaela, RN) Pain Presence: None/Denies (Yuliya Mikaela, RN) Pain Type: N/A (Yuliya Mikaela, RN) Datetime: 04/05/2016 13:25 Vital Signs NBP Sys/Che/Mean (mmHg): 122 (QS system process) : 78 (QS system process) : 96 (QS system process) Pulse: 70 (QS system process) Datetime: 04/05/2016 13:00 Respirations: 17 (Yuliya Mikaela, RN) Pain Pain Scale: 0 (Yuliya Mikaela, RN) Pain Presence: None/Denies (Yuliya Mikaela, RN) Pain Type: N/A (Yuliya Mikaela, RN) Datetime: 04/05/2016 12:30 Pain Pain Scale: 0 (Yuliya Mikaela, RN) Pain Presence: None/Denies (Yuliya Mkiaela, RN) Pain Type: N/A (Yuliya Mikaela, RN) Datetime: 04/05/2016 12:15 Respirations: 16 (Yuliya Mikaela, RN) Pain Pain Scale: 0 (Yuliya Mikaela, RN) Pain Presence: None/Denies (Yuliya Mikaela, RN) Pain Type: N/A (Yuliya Mikaela, RN) Datetime: 04/05/2016 12:00 Respirations: 16 (Yuliya Mikaela, RN) Pain Pain Scale: 0 (Yuliya Al RN) Pain Presence: None/Denies (Yuliya Al RN) Pain Type: N/A (Yuliya Al RN)
[2016-04-05] MEDS: IBUPROFEN 800 MG TABLET PO SCH ×2 (17:52→22:37)
[2016-04-05] MEDS: FERROUS SULFATE 325 MG TABLET PO SCH (17:56)
[2016-04-05] MEDS: DOCUSATE SODIUM 100 MG CAPSULE PO SCH (17:56)
[2016-04-05] MEDS ORDERED: ACETAMINOPHEN WITH CODEINE #3 TABLET ONE ×2 (18:46→22:45)
--- NOTE | 2016-04-05 19:01 | L&D Flow Sheet ---
LD Flowsheet Datetime Report Generated by CPN: 04/05/2016 19:00 Datetime: 04/05/2016 13:30 Respirations: 16 (Yuliya Mikaela, RN) Pain Pain Scale: 0 (Yuliya Mikaela, RN) Pain Presence: None/Denies (Yuliya Mikaela, RN) Pain Type: N/A (Yuliya Mikaela, RN) Datetime: 04/05/2016 13:25 NBP Sys/Che/Mean (mmHg): 122 (QS system process) : 78 (QS system process) : 96 (QS system process) Pulse: 70 (QS system process) Datetime: 04/05/2016 13:00 Respirations: 17 (Yuliya Mikaela, RN) Pain Pain Scale: 0 (Yuliya Mikaela, RN) Pain Presence: None/Denies (Yuliya Mikaela, RN) Pain Type: N/A (Yuliya Mikaela, RN) Datetime: 04/05/2016 12:30 Pain Pain Scale: 0 (Yuliya Mikaela, RN) Pain Presence: None/Denies (Yuliya Mikaela, RN) Pain Type: N/A (Yuliya Mikaela, RN) Datetime: 04/05/2016 12:15 Respirations: 16 (Yuliya Mikaela, RN) Pain Pain Scale: 0 (Yuliya Mikaela, RN) Pain Presence: None/Denies (Yuliya Mikaela, RN) Pain Type: N/A (Yuliya Mikaela, RN) Datetime: 04/05/2016 12:00 Respirations: 16 (Yuliya Mikaela, RN) Pain Pain Scale: 0 (Yuliya Mikaela, RN) Pain Presence: None/Denies (Yuliya Mikaela, RN) Pain Type: N/A (Yuliya Mikaela, RN) Datetime: 04/05/2016 11:55 NBP Sys/Che/Mean (mmHg): 121 (QS system process) : 68 (QS system process) : 89 (QS system process) Pulse: 83 (QS system process) Datetime: 04/05/2016 11:45 Respirations: 16 (Yuliya Mikaela, RN) Temperature (F): 98.1 (Yuliya Mikaela, RN) Temperature (C): 36.7 (QS system process) Pain Pain Scale: 0 (Yuliya Mikaela, RN) Pain Presence: None/Denies (Yuliya Mikaela, RN) Pain Type: N/A (Yuliya Mikaela, RN) Datetime: 04/05/2016 11:27 Respirations: 16 (Yuliya Mikaela, RN) Pain Pain Scale: 0 (Yuliya Mikaela, RN) Pain Presence: None/Denies (Yuliya Mikaela, RN) Pain Type: N/A (Yuliya Mikaela, RN) Datetime: 04/05/2016 11:26 NBP Sys/Che/Mean (mmHg): 124 (QS system process) : 72 (QS system process) : 93 (QS system process) Pulse: 80 (QS system process) Datetime: 04/05/2016 11:23 Vital Signs Stage of : Recovery (Yuliya Mikaela, RN) Datetime: 04/05/2016 11:22 Uterine Activity Monitor Mode: External; Palpation (Yuliya Mikaela, RN) Frequency (min): 1-3 (Yuliya Mikaela, RN) Quality: Moderate to Strong (Yuliya Mikaela, RN) Duration (sec): 60-70 (Yuliya Mikaela, RN) Resting Tone (Palpate): Relaxed (Yuliya Mikaela, RN) Assessment A Monitor Mode: External US (Yuliya Mikaela, RN) FHR Baseline Rate : 125 (Yuliya Mikaela, RN) Variability: Moderate 6-25 bpm (Yuliya Mikaela, RN) Accelerations: 15X15 (Yuliya Mikaela, RN) Decelerations: Variable (Yuliya Mikaela, RN) Datetime: 04/05/2016 11:19 Vaginal Exam Dilatation (cm): 10.0 (Yuliya Mikaela, RN) Effacement (%): 100 (Yuliya Mikaela, RN) Station: 2 (Yuliya Mikaela, RN) Exam by: Emmel, A (Yuliya Mikaela, RN) Stage 2 Preparation for Delivery: Setup for Delivery (Yuliya Mikaela, RN) Stage 2 Comments: A Emmel CNM present for impending delivery (Yuliya Mikaela, RN) Datetime: 04/05/2016 11:15 Uterine Activity Monitor Mode: External (Yuliya Mikaela, RN) Frequency (min): 2-6 (Yuliya Mikaela, RN) Quality: Moderate to Strong (Yuliya Mikaela, RN) Duration (sec): 60-90 (Yuliya Mikaela, RN) Resting Tone (Palpate): Relaxed (Yuliya Mikaela, RN) Assessment A Monitor Mode: External US (Yuliya Mikaela, RN) FHR Baseline Rate : 125 (Yuliya Mikaela, RN) Variability: Moderate 6-25 bpm (Yuliya Mikaela, RN) Accelerations: 15X15 (Yuliya Mikaela, RN) Decelerations: Early; Variable (Yuliya Mikaela, RN) Datetime: 04/05/2016 11:13 Vaginal Exam Dilatation (cm): 8.0 (Yuliya Al, RN) Effacement (%): 100 (Yuliya Al, JAVIER) Station: 1 (Yuliya Al, JAVIER) Exam by: Mikaela, A (Yuliya Al, RN) Vaginal Bleeding: Normal Show (Yuliya Al, RN) Cervix, Consistency: Soft (Yuliya Al, RN) Cervix, Position: Anterior (Yuliya Al, JAVIER) Datetime: 04/05/2016 11:00 Uterine Activity Monitor Mode: External; Palpation (Yuliya Mikaela, RN) Frequency (min): 2-3 (Yuliya Mikaela, RN) Quality: Moderate to Strong (Yuliya Mikaela, RN) Duration (sec): 50-90 (Yuliya Mikaela, RN) Resting Tone (Palpate): Relaxed (Yuliya Mikaela, RN) Assessment A Monitor Mode: External US (Yuliya Mikaela, RN) Variability: Moderate 6-25 bpm (Yuliya Mikaela, RN) Accelerations: 15X15 (Yuliya Mikaela, RN) Decelerations: Variable (Yuliya Mikaela, RN) Datetime: 04/05/2016 10:45 Uterine Activity Monitor Mode: External; Palpation (Yuliya Mikaela, RN) Frequency (min): 1-4 (Yuliya Mikaela, RN) Quality: Moderate to Strong (Yuliya Mikaela, RN) Duration (sec): 50-90 (Yuliya Mikaela, RN) Resting Tone (Palpate): Relaxed (Yuliya Mikaela, RN) Assessment A Monitor Mode: External US (Yuliya Mikaela, RN) FHR Baseline Rate : 130 (Yuliya Mikaela, RN) Variability: Moderate 6-25 bpm (Yuliya Mikaela, RN) Accelerations: 15X15 (Yuliya Mikaela, RN) Decelerations: Variable (Yuliya Mikaela, RN) Datetime: 04/05/2016 10:30 Uterine Activity Monitor Mode: External (Yuliya Mikaela, RN) Frequency (min): 2-4 (Yuliya Mikaela, RN) Quality: Moderate to Strong (Yuliya Mikaela, RN) Duration (sec): 60-90 (Yuliya Mikaela, RN) Resting Tone (Palpate): Relaxed (Yuliya Mikaela, RN) Assessment A Monitor Mode: External US (Yuliya Mikaela, RN) FHR Baseline Rate : 125 (Yuliya Mikaela, RN) Variability: Moderate 6-25 bpm (Yuliya Mikaela, RN) Accelerations: None (Yuliya Mikaela, RN) Decelerations: Early; Variable (Yuliya Mikaela, RN) Datetime: 04/05/2016 10:14 Uterine Activity Monitor Mode: External (Yuliya Mikaela, RN) Frequency (min): 2-5 (Yuliya Mikaela, RN) Quality: Moderate (Yuliya Mikaela, RN) Duration (sec): 60-90 (Yuliya Mikaela, RN) Resting Tone (Palpate): Relaxed (Yuliya Mikaela, RN) Assessment A Monitor Mode: External US (Yuliya Mikaela, RN) FHR Baseline Rate : 125 (Yuliya Mikaela, RN) Variability: Moderate 6-25 bpm (Yuliya Mikaela, RN) Accelerations: 15X15 (Yuliya Mikaela, RN) Decelerations: Variable (Yuliya Mikaela, RN) Datetime: 04/05/2016 10:11 Temperature (F): 98.2 (Yuliya Mikaela, RN) Temperature (C): 36.8 (QS system process) LaborFlag: Antepartum (QS system process) Datetime: 04/05/2016 10:09 Vaginal Exam Dilatation (cm): 5.0 (Yuliya Mikaela, RN) Exam by: A. Emmel CNM (Yuliya Mikaela, RN) Communication Communication Comments: A. Emmel CNM at bedside (Yuliya Mikaela, RN) Datetime: 04/05/2016 10:00 Uterine Activity Monitor Mode: External; Palpation (Yuliya Mikaela, RN) Frequency (min): 2-3 (Yuliya Mikaela, RN) Quality: Moderate (Yuliya Mikaela, RN) Duration (sec): 50-80 (Yuliya Mikaela, RN) Resting Tone (Palpate): Relaxed (Yuliya Mikaela, RN) Assessment A Monitor Mode: External US (Yuliya Mikaela, RN) FHR Baseline Rate : 135 (Yuliya Mikaela, RN) Variability: Moderate 6-25 bpm (Yuliya Mikaela, RN) Accelerations: 15X15 (Yuliya Mikaela, RN) Decelerations: None (Yuliya Mikaela, RN) Datetime: 04/05/2016 09:58 NBP Sys/Che/Mean (mmHg): 123 (QS system process) : 58 (QS system process) : 84 (QS system process) Pulse: 82 (QS system process) LaborFlag: Antepartum (QS system process) Datetime: 04/05/2016 09:51 Vaginal Exam Dilatation (cm): 5.0 (Yuliya Al, JAVIER) Effacement (%): 75 (Yuliya Al RN) Station: 0 (Yuliya Al RN) Exam by: Real Raines CNAnjelica (Yuliya Al ) Membrane Status: Ruptured (Yuliya Al ) Membranes Rupture Method: Spontaneous (Yuliya Al ) Amniotic Fluid Color: Clear (Yuliya Al, ) Amniotic Fluid Amount: Moderate (Yuliya Al ) Amniotic Fluid Odor: Normal (Yuliya Mikaela ) Datetime: 04/05/2016 09:50 Medications Pitocin (milliunit): Pitocin Increased to (milliunits) @ 14 (Yuliya Al ) Datetime: 04/05/2016 09:48 Vaginal Exam Dilatation (cm): 4.0 (Yuliya Mikaela, RN) Effacement (%): 70 (Yuliya Mikaela, RN) Station: -1 (Yuliya Mikaela, RN) Exam by: A. Emmel CNM (Yuliya Mikaela, RN) Datetime: 04/05/2016 09:46 Communication Communication Comments: A. Emmel CNM at bedside (Yuliya Mikaela, RN) Datetime: 04/05/2016 09:45 Uterine Activity Monitor Mode: External (Yuliya Mikaela, RN) Frequency (min): 1-6 (Yuliya Mikaela, RN) Quality: Moderate (Yuliya Mikaela, RN) Duration (sec): 60-90 (Yuliya Mikaela, RN) Resting Tone (Palpate): Relaxed (Yuliya Mikaela, RN) Assessment A Monitor Mode: External US (Yuliya Mikaela, RN) FHR Baseline Rate : 125 (Yuliya Mikaela, RN) Variability: Moderate 6-25 bpm (Yuliya Mikaela, RN) Accelerations: 15X15 (Yuliya Mikaela, RN) Decelerations: None (Yuliya Mikaela, RN) Datetime: 04/05/2016 09:30 Uterine Activity Monitor Mode: External (Yuliya Mikaela, RN) Frequency (min): 2-6 (Yuliya Mikaela, RN) Quality: Moderate (Yuliya Mikaela, RN) Duration (sec): 50-70 (Yuliya Mikaela, RN) Resting Tone (Palpate): Relaxed (Yuliya Mikaela, RN) Assessment A Monitor Mode: External US (Yuliya Mikaela, RN) FHR Baseline Rate : 125 (Yuliya Mikaela, RN) Variability: Moderate 6-25 bpm (Yuliya Mikaela, RN) Accelerations: 10X10 (Yuliya Mikaela, RN) Decelerations: None (Yuliya Mikaela, RN) Datetime: 04/05/2016 09:20 Medications Pitocin (milliunit): Pitocin Increased to (milliunits) @ 12 (Subha Khan, RN) Datetime: 04/05/2016 09:15 Uterine Activity Monitor Mode: External (Yuliya Mikaela, RN) Frequency (min): 2-7 (Yuliya Mikaela, RN) Quality: Moderate (Yuliya Mikaela, RN) Duration (sec): 60-80 (Yuliya Mikaela, RN) Resting Tone (Palpate): Relaxed (Yuliya Mikaela, RN) Assessment A Monitor Mode: External US (Yuliya Mikaela, RN) FHR Baseline Rate : 125 (Yuilya Mikaela, RN) Variability: Moderate 6-25 bpm (Yuliya Mikaela, RN) Accelerations: 15X15 (Yuliya Mikaela, RN) Decelerations: None (Yuliya Mikaela, RN) Datetime: 04/05/2016 09:00 Uterine Activity Monitor Mode: External (Yuliya Mikaela, RN) Frequency (min): 2-3 (Yuliya Mikaela, RN) Quality: Mild/Moderate (Yuliya Mikaela, RN) Duration (sec): 60-90 (Yuliya Mikaela, RN) Resting Tone (Palpate): Relaxed (Yuliya Mikaela, RN) Assessment A Monitor Mode: External US (Yuliya Mikaela, RN) FHR Baseline Rate : 135 (Yuliya Mikaela, RN) Variability: Moderate 6-25 bpm (Yuliya Mikaela, RN) Accelerations: 15X15 (Yuliya Mikaela, RN) Decelerations: None (Yuliya Mikaela, RN) Datetime: 04/05/2016 08:58 NBP Sys/Che/Mean (mmHg): 131 (QS system process) : 76 (QS system process) : 98 (QS system process) Pulse: 80 (QS system process) LaborFlag: Antepartum (QS system process) Datetime: 04/05/2016 08:45 Uterine Activity Monitor Mode: External (Yuliya Mikaela, RN) Frequency (min): irreg (Yuliya Mikaela, RN) Quality: Mild/Moderate (Yuliya Mikaela, RN) Resting Tone (Palpate): Relaxed (Yuliya Mikaela, RN) Assessment A Monitor Mode: External US (Yuliya Mikaela, RN) FHR Baseline Rate : 125 (Yuliya Mikaela, RN) Variability: Moderate 6-25 bpm (Yuliya Mikaela, RN) Accelerations: 15X15 (Yuliya Mikaela, RN) Decelerations: None (Yuliya Mikaela, RN) Medications Pitocin (milliunit): Pitocin Increased to (milliunits) @ 10 (Yuliya Mikaela, RN) Datetime: 04/05/2016 08:44 Patient Care Patient Position/Activity: Left Tilt; Semi-Fowlers (Yuliya Mikaela, RN) Datetime: 04/05/2016 08:41 I/O Interventions: Up to BR (Yuliya Mikaela, RN) Datetime: 04/05/2016 08:30 Uterine Activity Monitor Mode: External (Yuliya Mikaela, RN) Frequency (min): 2-6 (Yuliya Mikaela, RN) Quality: Mild (Yuliya Mikaela, RN) Duration (sec): 70-90 (Yuliya Mikaela, RN) Resting Tone (Palpate): Relaxed (Yuliya Mikaela, RN) Assessment A Monitor Mode: External US (Yuliya Mikaela, RN) FHR Baseline Rate : 125 (Yuliya Mikaela, RN) Variability: Minimal - Undetectable to <=5 bpm (Yuliya Mikaela, RN) Accelerations: None (Yuliya Mikaela, RN) Decelerations: None (Yuliya Mikaela, RN) Datetime: 04/05/2016 08:15 Uterine Activity Monitor Mode: External (Yuliya Mikaela, RN) Frequency (min): 3-4 (Yuliya Mikaela, RN) Quality: Mild (Yuliya Mikaela, RN) Duration (sec): 60-90 (Yuliya Mikaela, RN) Resting Tone (Palpate): Relaxed (Yuliya Mikaela, RN) Assessment A Monitor Mode: External US (Yuliya Mikaela, RN) FHR Baseline Rate : 130 (Yuliya Mikaela, RN) Variability: Moderate 6-25 bpm (Yuliya Mikaela, RN) Accelerations: 15X15 (Yuliya Mikaela, RN) Decelerations: None (Yuliya Mikaela, RN) Datetime: 04/05/2016 08:10 Temperature (F): 98.0 (Yuliya Spearmes, RN) Temperature (C): 36.7 (QS system process) LaborFlag: Antepartum (QS system process) Datetime: 04/05/2016 08:00 Uterine Activity Monitor Mode: External; Palpation (Yuliya Mikaela, RN) Frequency (min): 3-5 (Yuliya Mikaela, RN) Quality: Mild (Yuliya Mikaela, RN) Duration (sec): 70-100 (Yuliya Mikaela, RN) Resting Tone (Palpate): Relaxed (Yuliya Mikaela, RN) Assessment A Monitor Mode: External US (Yuliya Mikaela, RN) FHR Baseline Rate : 130 (Yuliya Mikaela, RN) Variability: Moderate 6-25 bpm (Yuliya Mikaela, RN) Accelerations: 15X15 (Yuliya Mikaela, RN) Decelerations: None (Yuliya Mikaela, RN) Datetime: 04/05/2016 07:57 NBP Sys/Che/Mean (mmHg): 132 (QS system process) : 86 (QS system process) : 104 (QS system process) Pulse: 82 (QS system process) Medications Pitocin (milliunit): Pitocin Increased to (milliunits) @ 8 (Yuliya Mikaela, RN) LaborFlag: Antepartum (QS system process) Datetime: 04/05/2016 07:45 Uterine Activity Monitor Mode: External; Palpation (Yuliya Mikaela, RN) Frequency (min): 2-4 (Yuliya Mikaela, RN) Quality: Mild (Yuliya Mikaela, RN) Duration (sec): 50-80 (Yuliya Mikaela, RN) Resting Tone (Palpate): Relaxed (Yuliya Mikaela, RN) Assessment A Monitor Mode: External US (Yuliya Mikaela, RN) FHR Baseline Rate : 125 (Yuliya Mikaela, RN) Variability: Moderate 6-25 bpm (Yuliya Mikaela, RN) Accelerations: 15X15 (Yuliya Mikaela, RN) Decelerations: None (Yuliya Mikaela, RN) Datetime: 04/05/2016 07:30 Uterine Activity Monitor Mode: External (Yuliya Mikaela, RN) Frequency (min): 4-5 (Yuliya Mikaela, RN) Quality: Mild (Yuliya Mikaela, RN) Duration (sec): 70-90 (Yuliya Mikaela, RN) Resting Tone (Palpate): Relaxed (Yuliya Mikaela, RN) Assessment A Monitor Mode: External US (Yuliya Mikaela, RN) FHR Baseline Rate : 125 (Yuliya Mikaela, RN) Variability: Moderate 6-25 bpm (Yuliya Mikaela, RN) Accelerations: 15X15 (Yuliya Mikaela, RN) Decelerations: None (Yuliya Imkaela, RN) Datetime: 04/05/2016 07:25 Medications Pitocin (milliunit): Pitocin Increased to (milliunits) @ 6 (Yuliya Mikaela, RN) Patient Care Comments: pt sitting up in bed listening to music, in no current distress (Yuliya Mikaela, RN) Datetime: 04/05/2016 07:15 Uterine Activity Monitor Mode: External (Yuliya Mikaela, RN) Frequency (min): 6 (Yuliya Mikaela, RN) Quality: Mild (Yuliya Mikaela, RN) Duration (sec): 140-160 (Yuliya Mikaela, RN) Resting Tone (Palpate): Relaxed (Yuliya Mikaela, RN) Assessment A Monitor Mode: External US (Yuliya Mikaela, RN) FHR Baseline Rate : 125 (Yuliya Mikaela, RN) Variability: Moderate 6-25 bpm (Yuliya Mikaela, RN) Accelerations: 15X15 (Yuliya Mikaela, RN) Decelerations: None (Yuliya Mikaela, RN) Medications Pitocin (milliunit): Pitocin Remains (milliunits) @ (Annotations: 4) (Yuliya Mikaela, RN) Datetime: 04/05/2016 07:11 Communication Communication Comments: Report given and care relinquished to AOtto Al, RN. (Zara Lattibeaudeir, RN) Datetime: 04/05/2016 07:00 Uterine Activity Monitor Mode: External (Zara Lattibeaudeir, RN) Frequency (min): 3-6 (Zara Lattibeaudeir, RN) Quality: Mild/Moderate (Zara Lattibeaudeir, RN) Duration (sec): 70-130 (Zara Lattibeaudeir, RN) Resting Tone (Palpate): Relaxed (Zara Lattibeaudeir, RN) Assessment A Monitor Mode: External US (Zara Lattibeaudeir, RN) FHR Baseline Rate : 120 (Zara Lattibeaudeir, RN) Variability: Moderate 6-25 bpm (Zara Lattibeaudeir, RN) Accelerations: 15X15 (Zara Lattibeaudeir, RN) Decelerations: None (Zara Lattibeaudeir, RN) Medications Pitocin (milliunit): Pitocin Remains (milliunits) @ 4 (Zara Lattibeaudeir, RN)
[2016-04-05] MEDS ORDERED: ACETAMINOPHEN WITH CODEINE #3 TABLET PO PRN ×2 (22:53→22:54)
[2016-04-06] MEDS: IBUPROFEN 800 MG TABLET PO SCH ×3 (05:10→21:04)
--- NOTE | 2016-04-06 06:02 | L&D General Admission ---
General Admit Datetime Report Generated by CPN: 04/06/2016 06:00 INFORMATION Patient Age: 40 (07/14/2015 07:40:QS system process) EDC: 04/18/2016 00:00 (03/10/2016 07:50:Shagufta Morrison RN) : 10 (03/10/2016 07:50:Shagufta Morrison RN) Para: 8 (03/15/2016 12:28:Valencia Douglas RN) Term: 7 (03/10/2016 07:50:Valencia Douglas RN) : 1 (03/10/2016 07:50:Valencia Douglas RN) Spontaneous Abortions: 1 (03/10/2016 07:50:Valencia Douglas RN) Induced Abortions: 0 (03/10/2016 07:50:Zara Hua RN) Livin (03/10/2016 07:50:Valencia Dogulas RN) Cesareans: 0 (03/10/2016 07:50:Zara Hua RN) VBACs: 0 (03/10/2016 07:50:Zara Hua RN) Ectopic: 0 (03/10/2016 07:50:Zara Hua RN) Multiple Births: 0 (03/10/2016 07:50:Zara Hua RN) Baby, Number in Womb: 1 (03/15/2016 12:28:KANNAN Alfaro) CARE Primary Business Support Assistant: [facility] (03/10/2016 07:50:Shagufta Morrison RN) Adequate Care: Yes (03/10/2016 07:50:Zara Hua RN) Prepregnancy Weight (lb): 157 (03/10/2016 07:50:Zara Hua RN) Prepregnancy Weight (kg): 71.4 (03/10/2016 07:50:QS system process) Height (in): 67 (04/05/2016 15:10:QS system process) ALLERGIES Medication Allergy: No (03/10/2016 07:50:Zara Hua RN) Medication Allergies: No Known Allergies (03/15/2016) (03/15/2016 11:47:QS system process) Latex Allergy: No Latex Allergies (03/10/2016 07:50:Zara Hua RN) COMMUNICATION Primary Language: Guamanian (03/10/2016 07:50:Shagufta Morrison RN) Medical Tx Preferred Language: Guamanian (03/10/2016 07:50:Shagufta Morrison RN) Communication Barrier(s): None (03/10/2016 07:50:Shagufta Morrison RN) DEMOGRAPHICS Address: [address] [place] [id number] (07/14/2015 07:40:QS system process) Zipcode: [id number] (07/14/2015 07:40:QS system process) Home (07/14/2015 07:40:QS system process) SSN: [id number] (07/14/2015 07:40:QS system process) Next of Kin Name: CHAKA CARRASCO (07/14/2015 07:40:QS system process) Next of Kin (07/14/2015 07:40:QS system process) Next of Kin Relationship: SPO (07/14/2015 07:40:QS system process) Date of : 1975 (07/14/2015 07:40:QS system process) Marital Status: (07/14/2015 07:40:QS system process) Sex: Female (07/14/2015 07:40:QS system process) Race: (07/14/2015 07:40:QS system process) Ethnicity: Non- or (07/14/2015 07:40:QS system process) Restorationism: Religion (07/14/2015 07:40:QS system process) DRUG AND ALCOHOL USE Alcohol: No (03/10/2016 07:50:Zara Hua RN) Cigarettes: Never Smoker. [id number] (03/10/2016 07:50:Zara Hua RN) Marijuana: No (03/10/2016 07:50:Zara Hua RN) Cocaine: No (03/10/2016 07:50:Zara Hua RN) Other Illicit Drugs: No (03/10/2016 07:50:Zara Hua RN) VACCINE HISTORY Influenza Vaccine: Uncertain (03/10/2016 07:50:Zara Hua RN) Pneumococcal Vaccine: No (03/10/2016 07:50:Zara Hua RN) Tdap Vaccine: Uncertain (03/10/2016 07:50:Zara Hua RN) Hepatitis B Vaccine: Uncertain (03/10/2016 07:50:Zara Hua RN) Wellness Nurse Rn: [facility] (03/10/2016 07:50:Zara Hua RN) Feeding Preference: Both (03/10/2016 07:50:Zara Hua RN) Benefit of Breast Feed Discussed: Yes (03/10/2016 07:50:Zara Hua RN) Circumcision: No (03/10/2016 07:50:Zara Hua RN) Classes Attended: No (03/10/2016 07:50:Zara Hua RN) Consent: N/A (03/10/2016 07:50:Zara Hua RN) Consent Signed: N/A (03/10/2016 07:50:Zara Hua RN) Pain Management Plans: Epidural (03/10/2016 07:50:Zara Hua RN) Plans for Labor and Delivery: None (03/10/2016 07:50:Zara Hua RN) Support Person: Chaka (03/10/2016 07:50:Zara Hua RN) Support Person Relationship: (03/10/2016 07:50:Zara Hua RN) Cultural/Spritual Practice: No (03/10/2016 07:50:Zara Hua RN) Spir/Cult Dietary Needs: No (03/10/2016 07:50:Zara Hua RN) LIVING SITUATION/DISCHARGE PLAN Adequate Access to:: Electric; Heat; Refrigeration; Plumbing/Running water; Phone; Transportation (03/10/2016 07:50:Zara Hua RN) WIC Program: Yes (03/10/2016 07:50:Zara Hua RN) Discharge Surveyor Hydrographic Person: Chaka (03/10/2016 07:50:Zara Hua RN) Person to Help after Discharge: Chaka (03/10/2016 07:50:Zara Hua RN) Currently Using Commun Resources: No (03/10/2016 07:50:Zara Hua RN) Outside Agency/Cytopathology Technologist: No (03/10/2016 07:50:Zara Hua RN) Car Seat for Discharge: Yes (03/10/2016 07:50:Zara Hua RN) Adoption Requested: No (03/10/2016 07:50:Zara Hua RN) Pt Contact w/ Post : N/A (03/10/2016 07:50:Zara Hua RN) LABS Blood Type: O Positive (03/10/2016 07:50:Valencia Douglas RN) Antibody Screen: Negative (03/10/2016 07:50:Valencia Douglas RN) Rho(G) this : Not Applicable (03/10/2016 07:50:Zara Hua RN) Hemoglobin: 11.1 L (04/05/2016 06:44:QS system process) Hematocrit: 33.5 L (04/05/2016 06:44:QS system process) MCV: 92 (04/05/2016 06:44:QS system process) Group Beta Strep: negative (03/10/2016 07:50:Valencia Douglas RN) Gonorrhea: Negative (03/10/2016 07:50:Valencia Douglas RN) Chlamydia: Negative (03/10/2016 07:50:Valencia Douglas RN) RPR/VDRL: Nonreactive (03/10/2016 07:50:Valencia Douglas RN) HIV Results: non-reactive (03/10/2016 07:50:Valencia Douglas RN) Hepatitis B: Negative (03/10/2016 07:50:Valencia Douglas RN) Rubella: Immune (03/10/2016 07:50:Valencia Douglas RN) Varicella: Non Susceptible (03/10/2016 07:50:Valencia Douglas RN) HgB A1c: 5.5 (07/14/2015 07:50:QS system process) OB/PREVIOUS HISTORY Previous Procedures: Ultrasound; NST (03/10/2016 07:50:Zara Hua RN) Current Procedures: Ultrasound; NST (03/10/2016 07:50:Zara Hua RN) History of Previous : No (03/10/2016 07:50:Zara Hua RN) History of Gestational Diabetes: No (03/10/2016 07:50:Zara Hua RN) History of PIH: No (03/10/2016 07:50:Zara Hua RN) History of Incompetent Cervix: No (03/10/2016 07:50:Zara Hua RN) History of Placenta Previa/Abrup: No (03/10/2016 07:50:Zara Hua RN) History of Macrosomia: No (03/10/2016 07:50:Zara Hua RN) History of IUGR: No (03/10/2016 07:50:Zara Hua RN) History of Hemorrhage: No (03/10/2016 07:50:Zara Hua RN) History of Loss/Stillborn: No (03/10/2016 07:50:Zara Hua RN) History of : No (03/10/2016 07:50:Zara Hua RN) History of D (Rh) Sensitization: No (03/10/2016 07:50:Zara Hua RN) History Recurrent Loss/Stillborn: No (03/10/2016 07:50:Zara Hua RN) History Depression/PP Depression: No (03/10/2016 07:50:Zara Hua RN) History of Uterine Anomaly/RAMON: No (03/10/2016 07:50:Zara Hua RN) History of Infertility: No (03/10/2016 07:50:Zara Hua RN) History of ART Treatment: No (03/10/2016 07:50:Zara Hua RN) History of RAMON: No (03/10/2016 07:50:Zara Hua RN) Comments Obstetrical History: G1-1990 36.4 wks gest female 6lbs 13 oz G2-1995 37 wks gest female 6lbs 15oz G3-1998 SAB G4-1998 37 wks gest male 6lbs 10 oz G5-2000 37 wks gest female 5lbs 10oz G6-2003 37 wks gest female 6lbs 11oz G7-2006 37 wks gest male 7lbs 11oz G8-2013 39 wks gest female 7lbs 14oz G9-2014 38.6 wks gest male 7lbs 11 oz [id number] (03/10/2016 07:50:Zara Hua RN) MEDICAL HISTORY Med Hx Diabetes: No (03/10/2016 07:50:Zara Hua RN) Med Hx Hypertension: Yes (03/10/2016 07:50:Valencia Douglas RN) Med Hx Heart Disease: No (03/10/2016 07:50:Zara Hua RN) Med Hx Autoimmune Disorder: No (03/10/2016 07:50:Zara Hua RN) Med Hx Kidney Disease/UTI: No (03/10/2016 07:50:Zara Hua RN) Med Hx Neurologic/Epilepsy: No (03/10/2016 07:50:Zara Hua RN) Med Hx Psychiatric Disorders: No (03/10/2016 07:50:Zara Hua RN) Med Hx Hepatitis/Liver Disease: No (03/10/2016 07:50:Zara Hua RN) Med Hx Varicosities/Phlebitis: No (03/10/2016 07:50:Zara Hua RN) Med Hx Thyroid Dysfunction: No (03/10/2016 07:50:Zara Hua RN) Med Hx Trauma/Violence: No (03/10/2016 07:50:Zara Hua RN) Med Hx Blood Transfusion: No (03/10/2016 07:50:Zara Hua RN) Med Hx Pulmonary (Asthma,TB): No (03/10/2016 07:50:Zara Hua RN) Med Hx Breast: No (03/10/2016 07:50:Zara Hua RN) Med Hx MEDIA THEORIST AND AUTHOR OF Surgery: No (03/10/2016 07:50:Zara Hua RN) Med Hx Hospitalization/Surgery: Yes (03/10/2016 07:50:Zara Hua RN) Med Hx Anesthetic Complications: No (03/10/2016 07:50:Zara Hua RN) Med Hx Abnormal Pap Smear: No (03/10/2016 07:50:Zara Hua RN) Other Medical Diseases: Yes (03/10/2016 07:50:Valencia Douglas RN) Med Hx Significant Family Hx: No (03/10/2016 07:50:Zara Hua RN) Details of Med/Surg Hx: CHTN-was on Aldomet then changed to labetalol; anemia; 2007-tubal ligation (failed); childbirth (03/10/2016 07:50:Zara Hua RN) INFECTIOUS HISTORY Inf Hx Gonorrhea: No (03/10/2016 07:50:Zara Hua RN) Inf Hx Chlamydia: No (03/10/2016 07:50:Zara Hua RN) Inf Hx Syphilis: No (03/10/2016 07:50:Zara Hua RN) Inf Hx HIV/AIDS: No (03/10/2016 07:50:Zara Hua RN) Inf Hx Human Papilloma Virus: No (03/10/2016 07:50:Zara Hua RN) Inf Hx Pt/Partner Genital Herpes: No (03/10/2016 07:50:Zara Hua RN) Inf Hx Tuberculosis/Exposure: No (03/10/2016 07:50:Zara Hua RN) Inf Hx Hepatitis B,C: No (03/10/2016 07:50:Zara Hua RN) Inf Hx Rash or Viral Illness: No (03/10/2016 07:50:Zara Hua RN) GENETIC HISTORY Gen Hx Age >=35 at YENNY: No (03/10/2016 07:50:Zara Hua RN) Gen Hx Thalassemia: No (03/10/2016 07:50:Zara Hua RN) Gen Hx Congenital Heart Defect: No (03/10/2016 07:50:Zara Hua RN) Gen Hx Neural Tube Defect: No (03/10/2016 07:50:Zara Hua RN) Gen Hx Down's Syndrome: No (03/10/2016 07:50:Zara Hua RN) Gen Hx Darin-Sachs: No (03/10/2016 07:50:Zara Hua RN) Gen Hx Lorri: No (03/10/2016 07:50:Zara Hua RN) Gen Hx Familial Dysautonomia: No (03/10/2016 07:50:Zara Hua RN) Gen Hx Sickle Cell Disease/Trait: No (03/10/2016 07:50:Zara Hua RN) Gen Hx Hemophilia/Blood Disorder: No (03/10/2016 07:50:Zara Hua RN) Gen Hx Muscular Dystrophy: No (03/10/2016 07:50:Zara Hua RN) Gen Hx Cystic Fibrosis: No (03/10/2016 07:50:Zara Hua RN) Gen Hx Huntingtons Chorea: No (03/10/2016 07:50:Zara Hua RN) Gen Hx Mental Retardation/Autism: No (03/10/2016 07:50:Zara Hua RN) Gen Hx Tested for Fragile X: No (03/10/2016 07:50:Zara Hua RN) Gen Hx Other Inher/Chromosomal: No (03/10/2016 07:50:Zara Hua RN) Gen Hx Maternal Metabolic DO: No (03/10/2016 07:50:Zara Hua RN) Gen Hx Pt Father or FOB Defect: No (03/10/2016 07:50:Zara Hua RN) Gen Hx Other Genetic History: No (03/10/2016 07:50:Zara Hua RN) Gen Hx Drugs/Meds since LMP: No (03/10/2016 07:50:Zara Hua RN)
--- NOTE | 2016-04-06 06:28 | L&D Care Plan ---
LD CARE PLANS Datetime Report Generated by CPN: 04/06/2016 06:15 Datetime: 04/04/2016 21:55 Pain State: Risk For (Zara Hua RN) Related To: Labor and Delivery Process; Treatment and Procedures; Post (Zara Hua RN) Goal(s): Patients Pain will be Assessed and Managed; Patient will Verbalize Adequate Relief of Pain or the Ability to [place] with Current Pain (Zara Hua RN) Interventions: Assess Pain Severity on Scale of 0 (None) to 5 (Severe); Assess Type, Location and Intensity of Pain Each Time Client Reports Discomfort and Notify Provider if Unusal Pain Develops; Encourage Proper Breathing and Relaxation Techniques; Offer Alternatives Such as Repositioning, Calm Environment, Massages, Diversional Activities, Ice Pack, Splinting, and Ambulation; Administer Analgesics as Ordered; Assist with Epidural Placement as Appropriate; Evaluate Therapeutic Effectiveness of Medication and Treatments (Zara Hua RN) Outcome: Patient will Report Absence or Relief of Pain Consistent with Established Pain Goal (Zara Hua RN) Status: Ongoing (Zara Hua RN) Outcome: Patient will have a Decrease in Signs and Symptoms of Discomfort (Zara Hua RN) Status: Ongoing (Zara Hua RN) Outcome: Pain will be Controlled During Procedures (Zara Hua RN) Status: Ongoing (Zara Hua RN) Anxiety State: Risk For (Zara Hua RN) Related To: Labor and Delivery Process; Fear of Unknown; Situational Crisis; Significant Life Event (Zara Hua RN) Goal(s): Patient will have Decreased Anxiety and be able to Function at Acceptable Levels (Zara Hua RN) Interventions: Assess Verbal and Nonverbal Behavioral Indicators of Anxiety; Assist Patient to Identify and Verbalize Symptoms of Anxiety; Identify and Demonstrate Techniques to Control Anxiety; Assist Patient with Coping Mechanisms to Manage Anxiety; Provide Theraputic Touch for the Patient; Explain to Patient, Using a Calm Reassuring Approach and Nonmedical Terms, All Activities, Procedures, and Concerns; Instruct Patient and Family about Post Discharge Care, Limitations, Symptoms to Report and Resources Available (Zara Hua RN) Outcome: Patient will Identify, Verbalize and Demonstrate Techniques to Control Anxiety (Zara Hua RN) Outcome: Patient's Posture, Facial Expressions, Gestures and Activity Level will Reflect Decreased Anxiety (Zara Hua RN) Status: Ongoing (Zara Hua RN) Outcome: Patient will Verbalize a Sense of Control and/or Acceptance of the Situation (Zara Hua RN) Status: Ongoing (Zara Hua RN) Outcome: Patient will Identify and Utilize Support Person (Zara Hua RN) Status: Ongoing (Zara Hua RN) Knowledge Deficit State: Risk For (Zara Hua RN) Related To: Treatment and Procedures; Impending Alterations in Family Dynamics (Zara Hua RN) Goal(s): Patient will Accurately Verbalize Understanding of Plan of Care and Treatment; Patient and Family will Accurately Verbalize Understanding of the Disease Process (Zara Hua RN) Interventions: Assess Motivation and Willingness of Patient/Family to Learn; Assess Preferred Learning Mode: One to One Instruction, Reading, Videos, Group Discussion or Demonstration; Assess Barriers to Learning: Pain, Emotional State, Language Barrier, Cognitive Impairment, Visual or Hearing Deficits; Assess Patient and Family Knowledge of Disease Process, Medications and Treatment; Discuss Therapy and/or Treatment Options, Describe Rationale Behind Management, Therapy and Treatment Recommendations; Instruct Patient and Family on Signs and Symptoms to Report; Instruct Patient and Family on Medication Effects and Side Effects; Provide Appropriate and Timely Education Using Multiple Techniques; Provide Patient and Family with Support Group Information and Resources; Give Clear and Thorough Explanations and Demonstrations (Zara Hua RN) Outcome: Patient and Family will Verbalize Understanding of Condition, Treatment and Signs and Symptoms to Report (Zara Hua RN) Outcome: Patient will Identify Perceived Learning Needs and Express Motivation to Learn (Zara Hua RN) Status: Ongoing (Zara Hua RN) Outcome: Patient will Verbalize Understanding of Desired Content, and/or Performs Desired Skill Prior to Discharge (Zara Hua RN) Status: Ongoing (Zara Hua RN) Infection State: Risk For (Zara Hua RN) Related To: Prolonged Labor or Induction; Invasive Procedures (Zara Hua RN) Goal(s): The Patient will be Free of Infection, Vital Signs Stable and Lab Work within Normal Parameters (Zara Hua RN) Interventions: Instruct and Reinforce Proper Handwashing, Hygiene, and Care Techniques to Patient and Family; Monitor Vital Signs; Monitor Patient for the Following Signs of Infection: Fever, Abdominal Tenderness, Unusual Discharge; Monitor Aminiotic Fluid, Urine and Lochia for Color and Odor; Observe Wounds, Incisions and Invasive Line Sites for Redness, Drainage and Edema; Assess IV Sites per Hospital Policy; Monitor Lab and Test Results and Notify Provider of Abnormal Findings; Assess Nutritional Status and Promote Good Nutrition (Zara Hua RN) Outcome: Patient will Remain Free of Infection (Zara Hua RN) Status: Ongoing (Zara Hua RN) Outcome: Infection will be Recognized Early to Allow for Prompt Treatment (Zara Hua RN) Status: Ongoing (Zara Hua RN) Outcome: Patient will have Vital Signs Within Expected Range (Zara Hua RN) Status: Ongoing (Zara Hua RN) Fluid Volume State: Risk For (Zara Hua RN) Related To: Prolonged Labor or Induction (Zara Hua RN) Goal(s): Patient will Achieve and Maintain a Balanced Fluid Volume Status; Hemodynamically Stable (Zara Hua RN) Interventions: Monitor Vital Signs; Auscultate Breath Sounds; Monitor Patient for Skin Turgor, Mucous Membranes, Dry Skin, Weakness, Headaches and Confusion; Provide Oral Fluids as Ordered; Initiate and Maintain Intravenous Fluids as Ordered; Monitor Intake and Output as Indicated Per Patient Status; Accurately Measure Blood Loss; Monitor Lab and Test Results as Obtained and Notify Provider of Abnormal Findings; Monitor Patient's Weight (Zara Hua RN) Outcome: Patient will have Clear Lung Sounds (Zara Hua RN) Status: Ongoing (Zara Hua RN) Outcome: Patient will have Vital Signs within Expected Range (Zara Hua RN) Status: Ongoing (Zara Hua RN) Outcome: Urine Output will be within Expected Range (Zara Hua RN) Status: Ongoing (Zara Hua RN) Outcome: Patient will have Minimal Generalized or Upper Extremity Edema (Zara Hua RN) Status: Ongoing (Zara Hua RN) Injury State: Risk For (Zara Hua RN) Related To: Labor and Delivery Process (Zara Hua RN) Goal(s): Patient will Remain Free from Injury (Zara Hua RN) Interventions: Monitoring as per Hospital Protocol; Assess Neurological Status; Perform Risk Assessment of Patients with Induction and ; Perform Fall Risk Assessment and Prevention per Hospital Protocol; Perform DVT Risk Assessment and Prophylaxis per Hospital Protocol; Ensure that Oxygen, Suction, and Resuscitation Medications and Equipment are Readily Available; Confirm Patient ID Prior to Procedure(s) and Medication Administration per Hospital Policy (Zara Hua RN) Outcome: Successful Fall Risk Prevention (Zara Hua RN) Status: Ongoing (Zara Hua RN) Outcome: Patient will Deliver without Adverse Sequela (Zara Hua RN) Status: Ongoing (Zara Hua RN) Outcome: Patient's Neurological Status will Remain Stable (Zara Hua RN) Status: Ongoing (Zara Hua RN) Impaired Skin Integrity State: Risk For (Zara Hua RN) Related To: Vaginal Delivery; Altered Tissue Integrity; Invasive Procedures (Zara Hua RN) Goal(s): Patient will Maintain Optimal Skin Integrity, Free of Breakdown, Injury or Infection (Zara Hua RN) Interventions: Complete Screening for Pressure Ulcer Risk and Initiate Protocol per Hospital Policy; Monitor Site of Skin Impairment for Color Changes, Redness, Swelling, Warmth, Pain or Other Signs of Infection; Encourage and Assist with Position Changes; Monitor Patient's Mobility Status; Provide Adequate Nutrition and Fluids; Teach Patient Appropriate Hygienic Care; Teach Patient/Family Skin Care Management (Zara Hua RN) Outcome: Patient will not have Evidence of Injury Such as Skin Breakdown, Scrapes, Cuts, or Bruising (Zara Hua RN) Status: Ongoing (Zara Hua RN) Outcome: Patient will Report Any Altered Sensation or Pain at Site of Skin Impairment (Zara Hua RN) Status: Ongoing (Zara Hua RN) Outcome: Patients Incisions and Wounds will be without Signs or Symptoms of Infection (Zara Hua RN) Status: Ongoing (Zara Hua RN) Outcome: Patient will Demonstrate Understanding of Plan to Heal Skin and Prevent Reinjury and Verbalize Risk Factors (Zara Hua RN) Status: Ongoing (Zara Hua RN)
[2016-04-06 08:02] LABS: HEMATOCRIT 36.4 % (36.0-47.0); HEMOGLOBIN 11.7 g/dL (12.0-15.5); HGB HCT DIFFERENCE -1.3; MEAN CORPUSCULAR HEMOGLOBIN 30.2 pg (27.0-33.4); MEAN CORPUSCULAR HGB CONC 32.3 g/dL (32.0-36.0); MEAN CORPUSCULAR VOLUME 94 fl (80-97); RED BLOOD COUNT 3.89 10^6/uL (3.72-5.28); RED CELL DISTRIBUTION WIDTH 13.8 % (11.5-14.0); WHITE BLOOD COUNT 12.3 10^3/uL (4.0-10.5)
[2016-04-06] MEDS: FERROUS SULFATE 325 MG TABLET PO SCH ×2 (09:47→17:22)
[2016-04-06] MEDS: SENNOSIDES/DOCUSATE 8.6-50 MG 1 EACH TABLET PO SCH (09:48)
[2016-04-06] MEDS: DOCUSATE SODIUM 100 MG CAPSULE PO SCH ×2 (09:48→17:22)
[2016-04-06] MEDS: PRENATAL VITAMIN W-O CA NO5/FE FUMARATE/FA CAPSULE PO SCH (09:48)
[2016-04-06] MEDS ORDERED: FERROUS SULFATE 325 MG TABLET PO SCH (10:00)
[2016-04-06] MEDS ORDERED: LABETALOL HCL 200 MG TABLET PO SCH (10:00)
--- NOTE | 2016-04-06 10:08 | PDOC PROGRESS REPORT ---
Subjective-OB Subjective: Post Delivery Day: 41 year old. Denies any needs at this time Doing well, no c/o, asking about her BP meds, scant lochia, breast/bottle feeding Physical Exam (OB) Vital Signs: Temp Pulse Resp BP Pulse Ox 97.7 F 68 19 123/78 98 04/06/16 08:33 04/06/16 08:33 04/06/16 08:33 04/06/16 08:33 04/06/16 08:33 Intake & Output 04/05/16 04/06/16 04/07/16 06:59 06:59 06:59 Weight 83.9 kg - PIH/Pre-Eclampsia DTR's: 2 + Clonus: Negative Headache: Absent Epigastric Pain: No Visual Changes: No - Lochia Lochia Amount: Scant < 10 ml Lochia Color: Rubra/Red - Abdomen Description: Tender, Soft Hernia Present: No Fundal Description: Firm, Midline Fundal Height: u/u - u/2 Objective-Diagnostic Laboratory: 04/06/16 07:06 04/05/16 06:44 04/06/16 07:06 WBC 12.3 H RBC 3.89 Hgb 11.7 L Hct 36.4 MCV 94 MCH 30.2 MCHC 32.3 RDW 13.8 Plt Count 201 Assessment and Plan(PN) - Assessment and Plan (1) Chronic hypertension in Is this a current diagnosis for this admission?: Yes (2) Anemia Qualifiers: Anemia type: iron deficiency Is this a current diagnosis for this admission?: Yes (3) Normal vaginal delivery Is this a current diagnosis for this admission?: Yes - Time Spent with Patient Time with patient: Less than 15 minutes Medications reviewed and adjusted accordingly: Yes - Disposition Anticipated Discharge: Home Within: within 24 hours - hold BP medication today, BP normal
[2016-04-06] MEDS: LABETALOL HCL 200 MG TABLET PO SCH (11:05)
[2016-04-07] MEDS: IBUPROFEN 800 MG TABLET PO SCH (05:07)
--- NOTE | 2016-04-07 06:02 | L&D General Admission ---
General Admit Datetime Report Generated by CPN: 04/07/2016 06:00 INFORMATION Patient Age: 40 (07/14/2015 07:40:QS system process) EDC: 04/18/2016 00:00 (03/10/2016 07:50:Shagufta Morrison RN) : 10 (03/10/2016 07:50:Shagufta Morrison RN) Para: 8 (03/15/2016 12:28:Valencia Douglas RN) Term: 7 (03/10/2016 07:50:Valencia Douglas RN) : 1 (03/10/2016 07:50:Valencia Douglas RN) Spontaneous Abortions: 1 (03/10/2016 07:50:Valencia Douglas RN) Induced Abortions: 0 (03/10/2016 07:50:Zara Hua RN) Livin (03/10/2016 07:50:Valencia Douglas RN) Cesareans: 0 (03/10/2016 07:50:Zara Hua RN) VBACs: 0 (03/10/2016 07:50:Zara Hua RN) Ectopic: 0 (03/10/2016 07:50:Zara Hua RN) Multiple Births: 0 (03/10/2016 07:50:Zara Hua RN) Baby, Number in Womb: 1 (03/15/2016 12:28:KANNAN Alfaro) CARE Primary Custom Motorcycle Painter: [facility] (03/10/2016 07:50:Shagufta Morrison RN) Adequate Care: Yes (03/10/2016 07:50:Zara Hua RN) Prepregnancy Weight (lb): 157 (03/10/2016 07:50:Zara Hua RN) Prepregnancy Weight (kg): 71.4 (03/10/2016 07:50:QS system process) Height (in): 67 (04/06/2016 10:57:QS system process) ALLERGIES Medication Allergy: No (03/10/2016 07:50:Zara Hua RN) Medication Allergies: No Known Allergies (03/15/2016) (03/15/2016 11:47:QS system process) Latex Allergy: No Latex Allergies (03/10/2016 07:50:Zara Hua RN) COMMUNICATION Primary Language: Venezuelan (03/10/2016 07:50:Shagufta Morrison RN) Medical Tx Preferred Language: Venezuelan (03/10/2016 07:50:Shagufta Morrison RN) Communication Barrier(s): None (03/10/2016 07:50:Shagufta Morrison RN) DEMOGRAPHICS Address: [address] [place] [id number] (07/14/2015 07:40:QS system process) Zipcode: [address] (07/14/2015 07:40:QS system process) Home (07/14/2015 07:40:QS system process) SSN: [id number] (07/14/2015 07:40:QS system process) Next of Kin Name: CHAKA CARRASCO (07/14/2015 07:40:QS system process) Next of Kin (07/14/2015 07:40:QS system process) Next of Kin Relationship: SPO (07/14/2015 07:40:QS system process) Date of : 1975 (07/14/2015 07:40:QS system process) Marital Status: (07/14/2015 07:40:QS system process) Sex: Female (07/14/2015 07:40:QS system process) Race: (07/14/2015 07:40:QS system process) Ethnicity: Non- or (07/14/2015 07:40:QS system process) Methodist: Sabianism (07/14/2015 07:40:QS system process) DRUG AND ALCOHOL USE Alcohol: No (03/10/2016 07:50:Zara Hua RN) Cigarettes: Never Smoker. [id number] (03/10/2016 07:50:Zara Hua RN) Marijuana: No (03/10/2016 07:50:Zara Hua RN) Cocaine: No (03/10/2016 07:50:Zara Hua RN) Other Illicit Drugs: No (03/10/2016 07:50:Zara Hua RN) VACCINE HISTORY Influenza Vaccine: Uncertain (03/10/2016 07:50:Zara Hua RN) Pneumococcal Vaccine: No (03/10/2016 07:50:Zara Hua RN) Tdap Vaccine: Uncertain (03/10/2016 07:50:Zara Hua RN) Hepatitis B Vaccine: Uncertain (03/10/2016 07:50:Zara Hua RN) Correction Officer City [facility] County Jail: [facility] (03/10/2016 07:50:Zara Hua RN) Feeding Preference: Both (03/10/2016 07:50:Zara Hua RN) Benefit of Breast Feed Discussed: Yes (03/10/2016 07:50:Zara Hua RN) Circumcision: No (03/10/2016 07:50:Zara Hua RN) Classes Attended: No (03/10/2016 07:50:Zara Hua RN) Consent: N/A (03/10/2016 07:50:Zara Hua RN) Consent Signed: N/A (03/10/2016 07:50:Zara Hua RN) Pain Management Plans: Epidural (03/10/2016 07:50:Zara Hua RN) Plans for Labor and Delivery: None (03/10/2016 07:50:Zara Hua RN) Support Person: Chaka (03/10/2016 07:50:Zara Hua RN) Support Person Relationship: (03/10/2016 07:50:Zara Hua RN) Cultural/Spritual Practice: No (03/10/2016 07:50:Zara Hua RN) Spir/Cult Dietary Needs: No (03/10/2016 07:50:Zara Hua RN) LIVING SITUATION/DISCHARGE PLAN Adequate Access to:: Electric; Heat; Refrigeration; Plumbing/Running water; Phone; Transportation (03/10/2016 07:50:Zara Hua RN) WIC Program: Yes (03/10/2016 07:50:Zara Hua RN) Discharge Pewter Caster Person: Chaka (03/10/2016 07:50:Zara Hua RN) Person to Help after Discharge: Chaka (03/10/2016 07:50:Zara Hua RN) Currently Using Commun Resources: No (03/10/2016 07:50:Zara Hua RN) Outside Agency/Special Education Inclusion Teacher: No (03/10/2016 07:50:Zara Hua RN) Car Seat for Discharge: Yes (03/10/2016 07:50:Zara Hua RN) Adoption Requested: No (03/10/2016 07:50:Zara Hua RN) Pt Contact w/ Post : N/A (03/10/2016 07:50:Zara Hua RN) LABS Blood Type: O Positive (03/10/2016 07:50:Valencia Douglas RN) Antibody Screen: Negative (03/10/2016 07:50:Valencia Douglas RN) Rho(G) this : Not Applicable (03/10/2016 07:50:Zara Hua RN) Hemoglobin: 11.7 L (04/06/2016 07:06:QS system process) Hematocrit: 36.4 (04/06/2016 07:06:QS system process) MCV: 94 (04/06/2016 07:06:QS system process) Group Beta Strep: negative (03/10/2016 07:50:Valencia Douglas RN) Gonorrhea: Negative (03/10/2016 07:50:Valencia Douglas RN) Chlamydia: Negative (03/10/2016 07:50:Valencia Douglas RN) RPR/VDRL: Nonreactive (03/10/2016 07:50:Valencia Douglas RN) HIV Results: non-reactive (03/10/2016 07:50:Valencia Douglas RN) Hepatitis B: Negative (03/10/2016 07:50:Valencia Douglas RN) Rubella: Immune (03/10/2016 07:50:Valencia Douglas RN) Varicella: Non Susceptible (03/10/2016 07:50:Valencia Douglas RN) HgB A1c: 5.5 (07/14/2015 07:50:QS system process) OB/PREVIOUS HISTORY Previous Procedures: Ultrasound; NST (03/10/2016 07:50:Zara Hua RN) Current Procedures: Ultrasound; NST (03/10/2016 07:50:Zara Hua RN) History of Previous : No (03/10/2016 07:50:Zara Hua RN) History of Gestational Diabetes: No (03/10/2016 07:50:Zara Hua RN) History of PIH: No (03/10/2016 07:50:Zara Hua RN) History of Incompetent Cervix: No (03/10/2016 07:50:Zara Hua RN) History of Placenta Previa/Abrup: No (03/10/2016 07:50:Zara Hua RN) History of Macrosomia: No (03/10/2016 07:50:Zara Hua RN) History of IUGR: No (03/10/2016 07:50:Zara Hua RN) History of Hemorrhage: No (03/10/2016 07:50:Zara Hua RN) History of Loss/Stillborn: No (03/10/2016 07:50:Zara Hua RN) History of : No (03/10/2016 07:50:Zara Hua RN) History of D (Rh) Sensitization: No (03/10/2016 07:50:Zara Hua RN) History Recurrent Loss/Stillborn: No (03/10/2016 07:50:Zara Hua RN) History Depression/PP Depression: No (03/10/2016 07:50:Zara Hua RN) History of Uterine Anomaly/RAMON: No (03/10/2016 07:50:Zara Hua RN) History of Infertility: No (03/10/2016 07:50:Zara Hua RN) History of ART Treatment: No (03/10/2016 07:50:Zara Hua RN) History of RAMON: No (03/10/2016 07:50:Zara Hua RN) Comments Obstetrical History: G1-1990 36.4 wks gest female 6lbs 13 oz G2-1995 37 wks gest female 6lbs 15oz G3-1998 SAB G4-1998 37 wks gest male 6lbs 10 oz G5-2000 37 wks gest female 5lbs 10oz G6-2003 37 wks gest female 6lbs 11oz G7-2006 37 wks gest male 7lbs 11oz G8-2012 39 wks gest female 7lbs 14oz G9-2014 38.6 wks gest male 7lbs 11 oz L45-Tldzuck (03/10/2016 07:50:Zara Hua RN) MEDICAL HISTORY Med Hx Diabetes: No (03/10/2016 07:50:Zara Hua RN) Med Hx Hypertension: Yes (03/10/2016 07:50:Valencia Douglas RN) Med Hx Heart Disease: No (03/10/2016 07:50:Zara Lattibeaudeir, RN) Med Hx Autoimmune Disorder: No (03/10/2016 07:50:Zara Hua RN) Med Hx Kidney Disease/UTI: No (03/10/2016 07:50:Zara Hua RN) Med Hx Neurologic/Epilepsy: No (03/10/2016 07:50:Zara Hua RN) Med Hx Psychiatric Disorders: No (03/10/2016 07:50:Zara Hua RN) Med Hx Hepatitis/Liver Disease: No (03/10/2016 07:50:Zara Hua RN) Med Hx Varicosities/Phlebitis: No (03/10/2016 07:50:Zara Hua RN) Med Hx Thyroid Dysfunction: No (03/10/2016 07:50:Zara Hua RN) Med Hx Trauma/Violence: No (03/10/2016 07:50:Zara Hua RN) Med Hx Blood Transfusion: No (03/10/2016 07:50:Zara Hua RN) Med Hx Pulmonary (Asthma,TB): No (03/10/2016 07:50:Zara Hua RN) Med Hx Breast: No (03/10/2016 07:50:Zara Hua RN) Med Hx BACK END ENGINEER Surgery: No (03/10/2016 07:50:Zara Hua RN) Med Hx Hospitalization/Surgery: Yes (03/10/2016 07:50:Zara Hua RN) Med Hx Anesthetic Complications: No (03/10/2016 07:50:Zara Hua RN) Med Hx Abnormal Pap Smear: No (03/10/2016 07:50:Zara Hua RN) Other Medical Diseases: Yes (03/10/2016 07:50:Valencia Douglas RN) Med Hx Significant Family Hx: No (03/10/2016 07:50:Zara Hua RN) Details of Med/Surg Hx: CHTN-was on Aldomet then changed to labetalol; anemia; 2007-tubal ligation (failed); childbirth (03/10/2016 07:50:Zara Hua RN) INFECTIOUS HISTORY Inf Hx Gonorrhea: No (03/10/2016 07:50:Zara Hua RN) Inf Hx Chlamydia: No (03/10/2016 07:50:Zara Hua RN) Inf Hx Syphilis: No (03/10/2016 07:50:Zara Hua RN) Inf Hx HIV/AIDS: No (03/10/2016 07:50:Zara Hua RN) Inf Hx Human Papilloma Virus: No (03/10/2016 07:50:Zara Hua RN) Inf Hx Pt/Partner Genital Herpes: No (03/10/2016 07:50:Zara Hua RN) Inf Hx Tuberculosis/Exposure: No (03/10/2016 07:50:Zara Hua RN) Inf Hx Hepatitis B,C: No (03/10/2016 07:50:Zara Hua RN) Inf Hx Rash or Viral Illness: No (03/10/2016 07:50:Zara Hua RN) GENETIC HISTORY Gen Hx Age >=35 at YENNY: No (03/10/2016 07:50:Zara Hua RN) Gen Hx Thalassemia: No (03/10/2016 07:50:Zara Hua RN) Gen Hx Congenital Heart Defect: No (03/10/2016 07:50:Zara Hua RN) Gen Hx Neural Tube Defect: No (03/10/2016 07:50:Zara Hua RN) Gen Hx Down's Syndrome: No (03/10/2016 07:50:Zara Hua RN) Gen Hx Darin-Sachs: No (03/10/2016 07:50:Zara Hua RN) Gen Hx Lorri: No (03/10/2016 07:50:Zara Hua RN) Gen Hx Familial Dysautonomia: No (03/10/2016 07:50:Zara Hua RN) Gen Hx Sickle Cell Disease/Trait: No (03/10/2016 07:50:Zara Hua RN) Gen Hx Hemophilia/Blood Disorder: No (03/10/2016 07:50:Zara Hua RN) Gen Hx Muscular Dystrophy: No (03/10/2016 07:50:Zara Hua RN) Gen Hx Cystic Fibrosis: No (03/10/2016 07:50:Zara Hua RN) Gen Hx Huntingtons Chorea: No (03/10/2016 07:50:Zara Hua RN) Gen Hx Mental Retardation/Autism: No (03/10/2016 07:50:Zara Hua RN) Gen Hx Tested for Fragile X: No (03/10/2016 07:50:Zara Hua RN) Gen Hx Other Inher/Chromosomal: No (03/10/2016 07:50:Zara Hua RN) Gen Hx Maternal Metabolic DO: No (03/10/2016 07:50:Zara Hua RN) Gen Hx Pt Father or FOB Defect: No (03/10/2016 07:50:Zara Hua RN) Gen Hx Other Genetic History: No (03/10/2016 07:50:Zara Hua RN) Gen Hx Drugs/Meds since LMP: No (03/10/2016 07:50:Zara Hua RN)
[2016-04-07] MEDS: PRENATAL VITAMIN W-O CA NO5/FE FUMARATE/FA CAPSULE PO SCH (09:08)
[2016-04-07] MEDS: FERROUS SULFATE 325 MG TABLET PO SCH (09:08)
[2016-04-07] MEDS: LABETALOL HCL 200 MG TABLET PO SCH (09:08)
[2016-04-07] MEDS: DOCUSATE SODIUM 100 MG CAPSULE PO SCH (09:08)
[2016-04-07] MEDS: SENNOSIDES/DOCUSATE 8.6-50 MG 1 EACH TABLET PO SCH (09:08)
[2016-04-07] MEDS ORDERED: MEDROXYPROGESTERONE ACET INJ 150 MG/1 ML VIAL IM PRN (09:46)
[2016-04-07 11:54] VITALS: BP 125/71
--- NOTE | 2016-04-07 13:04 | Delivery Summary ---
Del Sum A-C Datetime Report Generated by CPN: 04/07/2016 13:04 ADMISSION DATA Chief Complaint: Scheduled Induction of Labor Indication for Induction: Chronic Hypertension Admission Impression: Term, Intrauterine ; Induction of Labor; Medical Complication Admit Provider Comments: Term induction for cHTN. Pt on labetolol daily. Grand multip- risk for pph. Pt does not want transfusion. Type and Screen drawn. will need to discuss again in am. GBS neg DELIVERY PERSONNEL Delivery Doctor:: Betsy Raines CNM Nurse Packaging Design Engineer Certified:: Betsy Raines CNM Labor and Delivery Nurse:: Yuliya Al RNwind farm engineer Nurse:: KANNAN Alfaro Student Observers:: Galina GILL student MATERNAL INFORMATION Delivery Anesthesia: None Medications After Delivery: Pitocin Drip 20 Units/1000ml NSS Meds After Delivery Comment: 1000mcg Cytoteec CT Estimated Blood Loss (ml): 450 Maternal Complications: None Provider Comments: pt with increased urge to push bed prepped for delivery delivery of viable male with 2 pushes MAIRA to abdomen tactile stimulation elicits spont cry cord clamped and cut 3vc cord blood obtained placenta intact alarcon ebl 450 lower uterine segment boggy cytotec 1000 mcg per rectum prophylactically hemostasis achieved LABOR SUMMARY EDC: 04/18/2016 00:00 No. Babies in Womb: 1 Attempted: No Labor Anesthesia: None LABOR INFORMATION Reason for Induction: Chronic Hypertension Onset of Labor: 04/06/2016 09:51 Complete Dilatation: 04/06/2016 11:19 Oxytocin: Induction Group B Beta Strep: negative MEMBRANES Membranes Rupture Method: Spontaneous Rupture of Membranes: 04/06/2016 09:51 Length of Rupture (hr): -22.48 Amniotic Fluid Color: Clear Amniotic Fluid Amount: Moderate Amniotic Fluid Odor: Normal STAGES OF LABOR Stage 1 hr: 1 Stage 1 min: 28 Stage 2 hr: -23 Stage 2 min: -57 Stage 3 hr: 0 Stage 3 min: 5 Total Time in Labor hr: -22 Total Time in Labor min: -24 VAGINAL DELIVERY Episiotomy: None Laceration Extension: N/A Laceration Type: None Sponge Count Correct: N/A BABY A INFORMATION Infant Delivery Date/Time: 04/05/2016 11:22 Method of Delivery: Vaginal Born in Route : No : N/A Forceps: N/A Vacuum Extraction: N/A Shoulder Dystocia : No PRESENTATION/POSITION BABY A Presentation: Cephalic Cephalic Presentation: Vertex Vertex Position: Left Occipital Anterior Breech Presentation: N/A PLACENTA INFORMATION BABY A Placenta Delivery Time : 04/05/2016 11:27 Placenta Method of Delivery: Spontaneous Placenta Status: Delivered SCORES BABY A Heart Rate 1 min: >100 bpm Resp Effort 1 min: Good Cry Reflex Irritability 1 min: Cough or Sneeze or Pulls Away Muscle Tone 1 min: Some Flexion of Extremities Color 1 min: Body [place], Extremities Blue Resuscitation Effort 1 min: Tactile Stimulation SCORE 1 MIN: 8 Heart Rate 5 min: >100 bpm Resp Effort 5 min: Good Cry Reflex Irritability 5 min: Cough or Sneeze or Pulls Away Muscle Tone 5 min: Active Motion Color 5 min: Body [place], Extremities Blue Resuscitation Effort 5 min: Tactile Stimulation SCORE 5 MIN: 9 INFORMATION BABY A Gestational Age at Delivery: 38.1 Gestational Status: Early Term- 37- 38.6 Weeks Outcome : Liveborn Condition : Stable Sex: Male IDENTIFICATION BABY A Infant Verification Date/Time: 04/05/2016 11:32 ID Band Number: [id number] Mother's Name Verified: Yes RN Verifying Infant: Adrianna Camp RNC Additional Verifying Personnel: B [place] US WEIGHT/LENGTH BABY A Birthweight (gm): 2975 Infant Weight (lb): 6 Infant Weight (oz): 9 Length (in): 20.50 Infant Length (cm): 52.07 CORD INFORMATION BABY A No. Cord Vessels: 3 Nuchal Cord : N/A Nuchal Cord- Other: body Cord Blood Taken: Yes-For Eval (Mom's Blood Type - or O+) Suction: None ASSESSMENT BABY A Infant Complications: None Physical Findings at Delivery: Within Normal Limits Infant Respirations: Appears Normal Skin to Skin: Yes Skin to Skin Time (min): 60 Cloth Designer/ALS Called : No Infant Care By: S. Camp RN Transferred To: Nursery BABY B INFORMATION : N/A SIGNATURES Assignment: Lizeth Anguiano MD Signature: with User ID: [email or web address] : with User ID: [email or web address]
--- NOTE | 2016-04-07 13:05 | PDOC DISCHARGE SUMMARY ---
Discharge Summary-OB Discharge Date: 04/07/16 - Final Diagnosis (1) Chronic hypertension in Is this a current diagnosis for this admission?: Yes (2) Anemia Is this a current diagnosis for this admission?: Yes (3) Normal vaginal delivery Is this a current diagnosis for this admission?: Yes - Discharge Medication Home Medications: Pnv W-O Ca No5/Fe Fumarate/FA [-U Multiple Vitamin Capsule] 1 cap PO DAILY 03/07/12 Labetalol HCl [Normodyne 200 mg Tablet] 1 tab PO DAILY 03/15/16 Ranitidine HCl [Zantac 150 mg Tablet] 1 tab PO DAILY 03/15/16 Ibuprofen [Motrin 800 mg Tablet] 800 mg PO Q8HP PRN #90 tablet 04/07/16 Labetalol HCl [Normodyne 200 mg Tablet] 200 mg PO DAILY #0 tablet 04/07/16 Pnv W-O Ca No5/Fe Fumarate/FA [-U Multiple Vitamin Capsule] 1 cap PO DAILY #0 capsule 04/07/16 Reason(s) for Admission: Induction of Labor Procedures: NST, Ultrasound Intrapartum Procedure(s): Spontaneous Vaginal Delivery - Data Baby 1 Male at 1 minute: 8 at 5 minutes: 9 Weight: 2975 kg Home with Mother: Yes Complications: No - Diagnosis Test Laboratory: Temp Pulse Resp BP Pulse Ox 98.2 F 86 20 125/71 100 04/07/16 11:43 04/07/16 11:43 04/07/16 11:43 04/07/16 11:43 04/07/16 11:43 04/04/16 04/04/16 04/05/16 21:05 21:47 06:44 RBC 3.70 L 3.64 L Hgb 11.5 L 11.1 L Hct 33.6 L 33.5 L Urine Opiates Screen NEGATIVE 04/06/16 07:06 RBC 3.89 Hgb 11.7 L Hct 36.4 Urine Opiates Screen - Discharge information/Instructions Discharge Activity: Activity As Tolerated, Balance Activity w/Rest, No Lifting Over 10 Pounds, Pelvic Rest, No tub bath Discharge Diet: Regular Disposition: HOME, SELF-CARE Follow up with: [facility] in: 1, Weeks - blood pressure check Physical Exam (OB) Vital Signs: Temp Pulse Resp BP Pulse Ox 98.2 F 86 20 125/71 100 04/07/16 11:43 04/07/16 11:43 04/07/16 11:43 04/07/16 11:43 04/07/16 11:43 Intake & Output 04/06/16 04/07/16 04/08/16 06:59 06:59 06:59 Intake Total 600 Balance 600 - General General Appearance: Appears well In distress: None - PIH/Pre-Eclampsia DTR's: 2 + Clonus: Negative Headache: Absent Epigastric Pain: No Visual Changes: No - Episiotomy/Laceration Site Condition: N/A - Lochia Lochia Amount: Scant < 10 ml Lochia Color: Rubra/Red - Abdomen Description: Soft, Round Hernia Present: No Fundal Description: Firm, Midline Fundal Height: u/u - u/2 - Respiratory Respiratory Status: No respiratory distress - Extremities Upper extremity: Normal inspection Lower extremities: Normal inspection - Psychological Associated symptoms: Normal affect, Normal mood - bonding well with baby
--- NOTE | 2016-04-08 06:03 | L&D Current Admission ---
Current Admit Datetime Report Generated by CPN: 04/08/2016 06:00 ADMISSION INFORMATION Current Admit Date/Time: 04/04/2016 21:03 (04/04/2016 21:53:Zara Hua RN) Reason for Admission: Induction of Labor (04/04/2016 21:53:Zara Hua RN) Chief Complaint: Pt states that she missed her MFM appointment yesterday and was told to just come here for her NST (03/10/2016 08:00:Yuliya Al RN) EGA per Dates: 38.0 (04/04/2016 21:53:QS system process) Method of Arrival: Wheelchair (04/04/2016 21:53:Zara Hua RN) Admitted From: Home (04/04/2016 21:53:Zara Hua RN) Reason for Induction: Chronic Hypertension (04/04/2016 21:53:Zara Hua RN) Records Available: Yes (04/04/2016 21:53:Zara Hua RN) General Admission Information: Reviewed; Updated; Confirmed (04/04/2016 21:53:Zara Hua RN) General Admission Reviewed By: Laney Hua RN (04/04/2016 21:53:Zara Hua RN) BELONGINGS/ADVANCED DIRECTIVES Valuables/Personal Effects: Purse/Wallet; Cell Phone; Eyeglasses; Jewelry (04/04/2016 21:53:Zara Hua RN) Disposition of Belongings: Kept with Patient (04/04/2016 21:53:Zara Hua RN) Advance Direct for Healthcare: No, and Wants No Information (04/04/2016 21:53:Zara Hua RN) Durable Power of Drafter Civil: No (04/04/2016 21:53:Zara Hua RN) Living Will: No (04/04/2016 21:53:Zara Hua RN) Pt Rights Information Given: Yes (04/04/2016 21:53:Zara Hua RN) Pt Understands Pt Rights: Yes (04/04/2016 21:53:Zara Hua RN) LEARNING ASSESSMENT Knowledge Level: Understands L_D Process; Understands Care Activities; Had Pre-Hospital Education; Understands Diagnosis (04/04/2016 21:53:Zara Hua RN) Barriers to Learning: Visual Deficit (04/04/2016 21:53:Zara Hua RN) Learning Readiness: Motivated (04/04/2016 21:53:Zara Hua RN) Learns Best By: 1 to 1 Instruction; Reading; Videos; Demonstration (04/04/2016 21:53:Zara Hua RN) Learning Needs: Labor and Delivery Process; Symptoms to Report; Treatment Plan (04/04/2016 21:53:Zara Hua RN) Learning Assessment Comments: wears glasses (04/04/2016 21:53:Zara Hua RN) DOMESTIC VIOLANCE SCREENING Dom Viol Threatened/Hurt: No (04/04/2016 21:53:Zara Hua RN) Hx of Abuse/Neglect past 2yrs: No (04/04/2016 21:53:Zara Hua RN) Feel Unsafe Going Home: No (04/04/2016 21:53:Zara Hua RN) Addt'l Observ Indicating Abuse: No (04/04/2016 21:53:Zara Hua RN) Reason Unable to Complete Screen: N/A, Screen Completed (04/04/2016 21:53:Zara Hua RN) Considered Personal Harm/Suicide: No (04/04/2016 21:53:Zara Hua RN) NUTRITIONAL/FUNCTIONAL SCREENING Problem with Appetite >5 Days: No (04/04/2016 21:53:Zara Hua RN) Chew/Swallow Difficulties: No (04/04/2016 21:53:Zara Hua RN) Inappropriate Wt Gain/Loss: No (04/04/2016 21:53:Zara Hua RN) Presence Skin Breakdown/Ulcer: No (04/04/2016 21:53:Zara Hua RN) Special Diet: No (04/04/2016 21:53:Zara Hua RN) Pt Requests Trench Digging Machine Operator Visit: No (04/04/2016 21:53:Zara Hau RN) Hx of Any of the Following?: N/A (04/04/2016 21:53:Zara Hua RN) New Diagnosis of: N/A (04/04/2016 21:53:Zara Hua RN) Requires Assist w/Ambulation: No (04/04/2016 21:53:Zara Hua RN) Uses Assist Device to Ambulate: No (04/04/2016 21:53:Zara Hua RN) Pt Requires Help w/ADL's: No (04/04/2016 21:53:Zara Hua RN)
--- NOTE | 2016-04-08 06:03 | L&D General Admission ---
General Admit Datetime Report Generated by CPN: 04/08/2016 06:00 INFORMATION Patient Age: 40 (07/14/2015 07:40:QS system process) EDC: 04/18/2016 00:00 (03/10/2016 07:50:Shagufta Morrison RN) : 10 (03/10/2016 07:50:Shagufta Morrison RN) Para: 8 (03/15/2016 12:28:Valencia Douglas RN) Term: 7 (03/10/2016 07:50:Valencia Douglas RN) : 1 (03/10/2016 07:50:Valencia Douglas RN) Spontaneous Abortions: 1 (03/10/2016 07:50:Valencia Douglas RN) Induced Abortions: 0 (03/10/2016 07:50:Zara Hua RN) Livin (03/10/2016 07:50:Valencia Douglas RN) Cesareans: 0 (03/10/2016 07:50:Zara Hua RN) VBACs: 0 (03/10/2016 07:50:Zara Hua RN) Ectopic: 0 (03/10/2016 07:50:Zara Hua RN) Multiple Births: 0 (03/10/2016 07:50:Zara Hua RN) Baby, Number in Womb: 1 (03/15/2016 12:28:KANNAN Alfaro) CARE Primary Dental Coordinator: [facility] (03/10/2016 07:50:Shagufta Morrison RN) Adequate Care: Yes (03/10/2016 07:50:Zara Hua RN) Prepregnancy Weight (lb): 157 (03/10/2016 07:50:Zara Hua RN) Prepregnancy Weight (kg): 71.4 (03/10/2016 07:50:QS system process) Height (in): 67 (04/07/2016 13:05:QS system process) ALLERGIES Medication Allergy: No (03/10/2016 07:50:Zara Hua RN) Medication Allergies: No Known Allergies (03/15/2016) (03/15/2016 11:47:QS system process) Latex Allergy: No Latex Allergies (03/10/2016 07:50:Zara Hua RN) COMMUNICATION Primary Language: Kuwaiti (03/10/2016 07:50:Shagufta Morrison RN) Medical Tx Preferred Language: Kuwaiti (03/10/2016 07:50:Shagufta Morrison RN) Communication Barrier(s): None (03/10/2016 07:50:Shagufta Morrison RN) DEMOGRAPHICS Address: [address] [place] [id number] (07/14/2015 07:40:QS system process) Zipcode: [address] (07/14/2015 07:40:QS system process) Home (07/14/2015 07:40:QS system process) SSN: [id number] (07/14/2015 07:40:QS system process) Next of Kin Name: CHAKA CARRASCO (07/14/2015 07:40:QS system process) Next of Kin (07/14/2015 07:40:QS system process) Next of Kin Relationship: SPO (07/14/2015 07:40:QS system process) Date of : 1975 (07/14/2015 07:40:QS system process) Marital Status: (07/14/2015 07:40:QS system process) Sex: Female (07/14/2015 07:40:QS system process) Race: (07/14/2015 07:40:QS system process) Ethnicity: Non- or (07/14/2015 07:40:QS system process) Denominational: Gnosticist (07/14/2015 07:40:QS system process) DRUG AND ALCOHOL USE Alcohol: No (03/10/2016 07:50:Zara Hua RN) Cigarettes: Never Smoker. [id number] (03/10/2016 07:50:Zara Hua RN) Marijuana: No (03/10/2016 07:50:Zara Hua RN) Cocaine: No (03/10/2016 07:50:Zara Hua RN) Other Illicit Drugs: No (03/10/2016 07:50:Zara Hua RN) VACCINE HISTORY Influenza Vaccine: Uncertain (03/10/2016 07:50:Zara Hua RN) Pneumococcal Vaccine: No (03/10/2016 07:50:Zara Hua RN) Tdap Vaccine: Uncertain (03/10/2016 07:50:Zara Hua RN) Hepatitis B Vaccine: Uncertain (03/10/2016 07:50:Zara Hua RN) Internet Ecommerce Specialist: [facility] (03/10/2016 07:50:Zara Hua RN) Feeding Preference: Both (03/10/2016 07:50:Zara Hua RN) Benefit of Breast Feed Discussed: Yes (03/10/2016 07:50:Zara Hua RN) Circumcision: No (03/10/2016 07:50:Zara Hua RN) Classes Attended: No (03/10/2016 07:50:Zara Hua RN) Consent: N/A (03/10/2016 07:50:Zara Hua RN) Consent Signed: N/A (03/10/2016 07:50:Zara Hua RN) Pain Management Plans: Epidural (03/10/2016 07:50:Zara Hua RN) Plans for Labor and Delivery: None (03/10/2016 07:50:Zara Hua RN) Support Person: Chaka (03/10/2016 07:50:Zara Hua RN) Support Person Relationship: (03/10/2016 07:50:Zara Hua RN) Cultural/Spritual Practice: No (03/10/2016 07:50:Zara Hua RN) Spir/Cult Dietary Needs: No (03/10/2016 07:50:Zara Hua RN) LIVING SITUATION/DISCHARGE PLAN Adequate Access to:: Electric; Heat; Refrigeration; Plumbing/Running water; Phone; Transportation (03/10/2016 07:50:Zara Hua RN) WIC Program: Yes (03/10/2016 07:50:Zara Hua RN) Discharge Dental Manager Person: Chaka (03/10/2016 07:50:Zara Hua RN) Person to Help after Discharge: Chaka (03/10/2016 07:50:Zara Hua RN) Currently Using Commun Resources: No (03/10/2016 07:50:Zara Hua RN) Outside Agency/Food Equipment Service Technician: No (03/10/2016 07:50:Zara Hua RN) Car Seat for Discharge: Yes (03/10/2016 07:50:Zara Hua RN) Adoption Requested: No (03/10/2016 07:50:Zara Hua RN) Pt Contact w/ Post : N/A (03/10/2016 07:50:Zara Hua RN) LABS Blood Type: O Positive (03/10/2016 07:50:Valencia Douglas RN) Antibody Screen: Negative (03/10/2016 07:50:Valencia Douglas RN) Rho(G) this : Not Applicable (03/10/2016 07:50:Zara Hua RN) Hemoglobin: 11.7 L (04/06/2016 07:06:QS system process) Hematocrit: 36.4 (04/06/2016 07:06:QS system process) MCV: 94 (04/06/2016 07:06:QS system process) Group Beta Strep: negative (03/10/2016 07:50:Valencia Douglas RN) Gonorrhea: Negative (03/10/2016 07:50:Valencia Douglas RN) Chlamydia: Negative (03/10/2016 07:50:Valencia Douglas RN) RPR/VDRL: Nonreactive (03/10/2016 07:50:Valencia Douglas RN) HIV Results: non-reactive (03/10/2016 07:50:Valencia Douglas RN) Hepatitis B: Negative (03/10/2016 07:50:Valencia Douglas RN) Rubella: Immune (03/10/2016 07:50:Valencia Douglas RN) Varicella: Non Susceptible (03/10/2016 07:50:Valencia Douglas RN) HgB A1c: 5.5 (07/14/2015 07:50:QS system process) OB/PREVIOUS HISTORY Previous Procedures: Ultrasound; NST (03/10/2016 07:50:Zara Hua RN) Current Procedures: Ultrasound; NST (03/10/2016 07:50:Zara Hua RN) History of Previous : No (03/10/2016 07:50:Zara Hua RN) History of Gestational Diabetes: No (03/10/2016 07:50:Zara Hua RN) History of PIH: No (03/10/2016 07:50:Zara Hua RN) History of Incompetent Cervix: No (03/10/2016 07:50:Zara Hua RN) History of Placenta Previa/Abrup: No (03/10/2016 07:50:Zara Hua RN) History of Macrosomia: No (03/10/2016 07:50:Zara Hua RN) History of IUGR: No (03/10/2016 07:50:Zara Hua RN) History of Hemorrhage: No (03/10/2016 07:50:Zara Hua RN) History of Loss/Stillborn: No (03/10/2016 07:50:Zara Hua RN) History of : No (03/10/2016 07:50:Zara Hua RN) History of D (Rh) Sensitization: No (03/10/2016 07:50:Zara Hua RN) History Recurrent Loss/Stillborn: No (03/10/2016 07:50:Zara Hua RN) History Depression/PP Depression: No (03/10/2016 07:50:Zara Hua RN) History of Uterine Anomaly/RAMON: No (03/10/2016 07:50:Zara Hua RN) History of Infertility: No (03/10/2016 07:50:Zara Hua RN) History of ART Treatment: No (03/10/2016 07:50:Zara Hua RN) History of RAMON: No (03/10/2016 07:50:Zara Hua RN) Comments Obstetrical History: G1-1990 36.4 wks gest female 6lbs 13 oz G2-1995 37 wks gest female 6lbs 15oz G3-1998 SAB G4-1998 37 wks gest male 6lbs 10 oz G5-2000 37 wks gest female 5lbs 10oz G6-2003 37 wks gest female 6lbs 11oz G7-2006 37 wks gest male 7lbs 11oz G8-2012 39 wks gest female 7lbs 14oz G9-2014 38.6 wks gest male 7lbs 11 oz O04-Bybtouy (03/10/2016 07:50:Zara Hua RN) MEDICAL HISTORY Med Hx Diabetes: No (03/10/2016 07:50:Zara Hua RN) Med Hx Hypertension: Yes (03/10/2016 07:50:Valencia Douglas RN) Med Hx Heart Disease: No (03/10/2016 07:50:Zara Lattibeaudeir, RN) Med Hx Autoimmune Disorder: No (03/10/2016 07:50:Zara Hua RN) Med Hx Kidney Disease/UTI: No (03/10/2016 07:50:Zara Hua RN) Med Hx Neurologic/Epilepsy: No (03/10/2016 07:50:Zara Hua RN) Med Hx Psychiatric Disorders: No (03/10/2016 07:50:Zara Hua RN) Med Hx Hepatitis/Liver Disease: No (03/10/2016 07:50:Zara Hua RN) Med Hx Varicosities/Phlebitis: No (03/10/2016 07:50:Zara Hua RN) Med Hx Thyroid Dysfunction: No (03/10/2016 07:50:Zara Hua RN) Med Hx Trauma/Violence: No (03/10/2016 07:50:Zara Hua RN) Med Hx Blood Transfusion: No (03/10/2016 07:50:Zara Hua RN) Med Hx Pulmonary (Asthma,TB): No (03/10/2016 07:50:Zara Hua RN) Med Hx Breast: No (03/10/2016 07:50:Zara Hua RN) Med Hx PAEDIATRIC PHYSIOTHERAPIST Surgery: No (03/10/2016 07:50:Zara Hua RN) Med Hx Hospitalization/Surgery: Yes (03/10/2016 07:50:Zara Hua RN) Med Hx Anesthetic Complications: No (03/10/2016 07:50:Zara Hua RN) Med Hx Abnormal Pap Smear: No (03/10/2016 07:50:Zara Hua RN) Other Medical Diseases: Yes (03/10/2016 07:50:Valencia Douglas RN) Med Hx Significant Family Hx: No (03/10/2016 07:50:Zara Hua RN) Details of Med/Surg Hx: CHTN-was on Aldomet then changed to labetalol; anemia; 2007-tubal ligation (failed); childbirth (03/10/2016 07:50:Zara Hua RN) INFECTIOUS HISTORY Inf Hx Gonorrhea: No (03/10/2016 07:50:Zara Hua RN) Inf Hx Chlamydia: No (03/10/2016 07:50:Zara Hua RN) Inf Hx Syphilis: No (03/10/2016 07:50:Zara Hua RN) Inf Hx HIV/AIDS: No (03/10/2016 07:50:Zara Hua RN) Inf Hx Human Papilloma Virus: No (03/10/2016 07:50:Zara Hua RN) Inf Hx Pt/Partner Genital Herpes: No (03/10/2016 07:50:Zara Hua RN) Inf Hx Tuberculosis/Exposure: No (03/10/2016 07:50:Zara Hua RN) Inf Hx Hepatitis B,C: No (03/10/2016 07:50:Zara Hua RN) Inf Hx Rash or Viral Illness: No (03/10/2016 07:50:Zara Hua RN) GENETIC HISTORY Gen Hx Age >=35 at YENNY: No (03/10/2016 07:50:Zara Hua RN) Gen Hx Thalassemia: No (03/10/2016 07:50:Zara Hua RN) Gen Hx Congenital Heart Defect: No (03/10/2016 07:50:Zara Hua RN) Gen Hx Neural Tube Defect: No (03/10/2016 07:50:Zara Hua RN) Gen Hx Down's Syndrome: No (03/10/2016 07:50:Zara Hua RN) Gen Hx Darin-Sachs: No (03/10/2016 07:50:Zara Hua RN) Gen Hx Lorri: No (03/10/2016 07:50:Zara Hua RN) Gen Hx Familial Dysautonomia: No (03/10/2016 07:50:Zara Hua RN) Gen Hx Sickle Cell Disease/Trait: No (03/10/2016 07:50:Zara Hua RN) Gen Hx Hemophilia/Blood Disorder: No (03/10/2016 07:50:Zara Hua RN) Gen Hx Muscular Dystrophy: No (03/10/2016 07:50:Zara Hua RN) Gen Hx Cystic Fibrosis: No (03/10/2016 07:50:Zara Hua RN) Gen Hx Huntingtons Chorea: No (03/10/2016 07:50:Zara Hua RN) Gen Hx Mental Retardation/Autism: No (03/10/2016 07:50:Zara Hua RN) Gen Hx Tested for Fragile X: No (03/10/2016 07:50:Zara Hua RN) Gen Hx Other Inher/Chromosomal: No (03/10/2016 07:50:Zara Hua RN) Gen Hx Maternal Metabolic DO: No (03/10/2016 07:50:Zara Hua RN) Gen Hx Pt Father or FOB Defect: No (03/10/2016 07:50:Zara Hua RN) Gen Hx Other Genetic History: No (03/10/2016 07:50:Zara Hua RN) Gen Hx Drugs/Meds since LMP: No (03/10/2016 07:50:Zara Hua RN)
--- NOTE | 2016-04-09 06:02 | L&D General Admission ---
General Admit Datetime Report Generated by CPN: 04/09/2016 06:00 INFORMATION Patient Age: 40 (07/14/2015 07:40:QS system process) EDC: 04/18/2016 00:00 (03/10/2016 07:50:Shagufta Morrison RN) : 10 (03/10/2016 07:50:Shagufta Morrison RN) Para: 8 (03/15/2016 12:28:Valencia Douglas RN) Term: 7 (03/10/2016 07:50:Valencia Douglas RN) : 1 (03/10/2016 07:50:Valencia Douglas RN) Spontaneous Abortions: 1 (03/10/2016 07:50:Valencia Douglas RN) Induced Abortions: 0 (03/10/2016 07:50:Zara Hua RN) Livin (03/10/2016 07:50:Valencia Douglas RN) Cesareans: 0 (03/10/2016 07:50:Zara Hua RN) VBACs: 0 (03/10/2016 07:50:Zara Hua RN) Ectopic: 0 (03/10/2016 07:50:Zara Hua RN) Multiple Births: 0 (03/10/2016 07:50:Zara Hua RN) Baby, Number in Womb: 1 (03/15/2016 12:28:KANNAN Alfaro) CARE Primary Epic Anesthesia Analyst: [facility] (03/10/2016 07:50:Shagufta Morrison RN) Adequate Care: Yes (03/10/2016 07:50:Zara Hua RN) Prepregnancy Weight (lb): 157 (03/10/2016 07:50:Zara Hua RN) Prepregnancy Weight (kg): 71.4 (03/10/2016 07:50:QS system process) Height (in): 67 (04/07/2016 13:05:QS system process) ALLERGIES Medication Allergy: No (03/10/2016 07:50:Zara Hua RN) Medication Allergies: No Known Allergies (03/15/2016) (03/15/2016 11:47:QS system process) Latex Allergy: No Latex Allergies (03/10/2016 07:50:Zara Hua RN) COMMUNICATION Primary Language: Anguillan (03/10/2016 07:50:Shagufta Morrison RN) Medical Tx Preferred Language: Anguillan (03/10/2016 07:50:Shagufta Morrison RN) Communication Barrier(s): None (03/10/2016 07:50:Shagufta Morrison RN) DEMOGRAPHICS Address: [address] [place] [id number] (07/14/2015 07:40:QS system process) Zipcode: [address] (07/14/2015 07:40:QS system process) Home (07/14/2015 07:40:QS system process) SSN: [id number] (07/14/2015 07:40:QS system process) Next of Kin Name: CHAKA CARRASCO (07/14/2015 07:40:QS system process) Next of Kin (07/14/2015 07:40:QS system process) Next of Kin Relationship: SPO (07/14/2015 07:40:QS system process) Date of : 1975 (07/14/2015 07:40:QS system process) Marital Status: (07/14/2015 07:40:QS system process) Sex: Female (07/14/2015 07:40:QS system process) Race: (07/14/2015 07:40:QS system process) Ethnicity: Non- or (07/14/2015 07:40:QS system process) Mormonism: Cheondoism (07/14/2015 07:40:QS system process) DRUG AND ALCOHOL USE Alcohol: No (03/10/2016 07:50:Zara Hua RN) Cigarettes: Never Smoker. [id number] (03/10/2016 07:50:Zara Hua RN) Marijuana: No (03/10/2016 07:50:Zara Hua RN) Cocaine: No (03/10/2016 07:50:Zara Hua RN) Other Illicit Drugs: No (03/10/2016 07:50:Zara Hua RN) VACCINE HISTORY Influenza Vaccine: Uncertain (03/10/2016 07:50:Zara Hua RN) Pneumococcal Vaccine: No (03/10/2016 07:50:Zara Hua RN) Tdap Vaccine: Uncertain (03/10/2016 07:50:Zara Hua RN) Hepatitis B Vaccine: Uncertain (03/10/2016 07:50:Zara Hua RN) Maintenance Assistant: [facility] (03/10/2016 07:50:Zara Hua RN) Feeding Preference: Both (03/10/2016 07:50:Zara Hua RN) Benefit of Breast Feed Discussed: Yes (03/10/2016 07:50:Zara Hua RN) Circumcision: No (03/10/2016 07:50:Zara Hua RN) Classes Attended: No (03/10/2016 07:50:Zara Hua RN) Consent: N/A (03/10/2016 07:50:Zara Hua RN) Consent Signed: N/A (03/10/2016 07:50:Zara Hua RN) Pain Management Plans: Epidural (03/10/2016 07:50:Zara Hua RN) Plans for Labor and Delivery: None (03/10/2016 07:50:Zara Hua RN) Support Person: Chaka (03/10/2016 07:50:Zara Hua RN) Support Person Relationship: (03/10/2016 07:50:Zara Hua RN) Cultural/Spritual Practice: No (03/10/2016 07:50:Zara Hua RN) Spir/Cult Dietary Needs: No (03/10/2016 07:50:Zara Hua RN) LIVING SITUATION/DISCHARGE PLAN Adequate Access to:: Electric; Heat; Refrigeration; Plumbing/Running water; Phone; Transportation (03/10/2016 07:50:Zara Hua RN) WIC Program: Yes (03/10/2016 07:50:Zara Hua RN) Discharge Moderate Needs Teacher Person: Chaka (03/10/2016 07:50:Zara Hua RN) Person to Help after Discharge: Chaka (03/10/2016 07:50:Zara Hua RN) Currently Using Commun Resources: No (03/10/2016 07:50:Zara Hua RN) Outside Agency/Warp Picker: No (03/10/2016 07:50:Zara Hua RN) Car Seat for Discharge: Yes (03/10/2016 07:50:Zara Hua RN) Adoption Requested: No (03/10/2016 07:50:Zara Hua RN) Pt Contact w/ Post : N/A (03/10/2016 07:50:Zara Hua RN) LABS Blood Type: O Positive (03/10/2016 07:50:Valencia Douglas RN) Antibody Screen: Negative (03/10/2016 07:50:Valencia Douglas RN) Rho(G) this : Not Applicable (03/10/2016 07:50:Zara Hua RN) Hemoglobin: 11.7 L (04/06/2016 07:06:QS system process) Hematocrit: 36.4 (04/06/2016 07:06:QS system process) MCV: 94 (04/06/2016 07:06:QS system process) Group Beta Strep: negative (03/10/2016 07:50:Valencia Douglas RN) Gonorrhea: Negative (03/10/2016 07:50:Valencia Douglas RN) Chlamydia: Negative (03/10/2016 07:50:Valencia Douglas RN) RPR/VDRL: Nonreactive (03/10/2016 07:50:Valencia Douglas RN) HIV Results: non-reactive (03/10/2016 07:50:Valencia Douglas RN) Hepatitis B: Negative (03/10/2016 07:50:Valencia Douglas RN) Rubella: Immune (03/10/2016 07:50:Valencia Douglas RN) Varicella: Non Susceptible (03/10/2016 07:50:Valencia Douglas RN) HgB A1c: 5.5 (07/14/2015 07:50:QS system process) OB/PREVIOUS HISTORY Previous Procedures: Ultrasound; NST (03/10/2016 07:50:Zara Hua RN) Current Procedures: Ultrasound; NST (03/10/2016 07:50:Zara Hua RN) History of Previous : No (03/10/2016 07:50:Zara Hua RN) History of Gestational Diabetes: No (03/10/2016 07:50:Zara Hua RN) History of PIH: No (03/10/2016 07:50:Zara Hua RN) History of Incompetent Cervix: No (03/10/2016 07:50:Zara Hua RN) History of Placenta Previa/Abrup: No (03/10/2016 07:50:Zara Hua RN) History of Macrosomia: No (03/10/2016 07:50:Zara Hua RN) History of IUGR: No (03/10/2016 07:50:Zara Hua RN) History of Hemorrhage: No (03/10/2016 07:50:Zara Hua RN) History of Loss/Stillborn: No (03/10/2016 07:50:Zara Hua RN) History of : No (03/10/2016 07:50:Zara Hua RN) History of D (Rh) Sensitization: No (03/10/2016 07:50:Zara Hua RN) History Recurrent Loss/Stillborn: No (03/10/2016 07:50:Zara Hua RN) History Depression/PP Depression: No (03/10/2016 07:50:Zara Hua RN) History of Uterine Anomaly/RAMON: No (03/10/2016 07:50:Zara Hua RN) History of Infertility: No (03/10/2016 07:50:Zara Hua RN) History of ART Treatment: No (03/10/2016 07:50:Zara Hua RN) History of RAMON: No (03/10/2016 07:50:Zara Hua RN) Comments Obstetrical History: G1-1990 36.4 wks gest female 6lbs 13 oz G2-1995 37 wks gest female 6lbs 15oz G3-1998 SAB G4-1998 37 wks gest male 6lbs 10 oz G5-2000 37 wks gest female 5lbs 10oz G6-2003 37 wks gest female 6lbs 11oz G7-2006 37 wks gest male 7lbs 11oz G8-2012 39 wks gest female 7lbs 14oz G9-2014 38.6 wks gest male 7lbs 11 oz H90-Pbgcwam (03/10/2016 07:50:Zara Hua RN) MEDICAL HISTORY Med Hx Diabetes: No (03/10/2016 07:50:Zara Hua RN) Med Hx Hypertension: Yes (03/10/2016 07:50:Valencia Douglas RN) Med Hx Heart Disease: No (03/10/2016 07:50:Zara Lattibeaudeir, RN) Med Hx Autoimmune Disorder: No (03/10/2016 07:50:Zara Hua RN) Med Hx Kidney Disease/UTI: No (03/10/2016 07:50:Zara Hua RN) Med Hx Neurologic/Epilepsy: No (03/10/2016 07:50:Zara Hua RN) Med Hx Psychiatric Disorders: No (03/10/2016 07:50:Zara Hua RN) Med Hx Hepatitis/Liver Disease: No (03/10/2016 07:50:Zara Hua RN) Med Hx Varicosities/Phlebitis: No (03/10/2016 07:50:Zara Hua RN) Med Hx Thyroid Dysfunction: No (03/10/2016 07:50:Zara Hua RN) Med Hx Trauma/Violence: No (03/10/2016 07:50:Zara Hua RN) Med Hx Blood Transfusion: No (03/10/2016 07:50:Zara Hua RN) Med Hx Pulmonary (Asthma,TB): No (03/10/2016 07:50:Zara Hua RN) Med Hx Breast: No (03/10/2016 07:50:Zara Hua RN) Med Hx CUSTOMER RETENTION SPECIALIST Surgery: No (03/10/2016 07:50:Zara Hua RN) Med Hx Hospitalization/Surgery: Yes (03/10/2016 07:50:Zara Hua RN) Med Hx Anesthetic Complications: No (03/10/2016 07:50:Zara Hua RN) Med Hx Abnormal Pap Smear: No (03/10/2016 07:50:Zara Hua RN) Other Medical Diseases: Yes (03/10/2016 07:50:Valencia Douglas RN) Med Hx Significant Family Hx: No (03/10/2016 07:50:Zara Hua RN) Details of Med/Surg Hx: CHTN-was on Aldomet then changed to labetalol; anemia; 2007-tubal ligation (failed); childbirth (03/10/2016 07:50:Zara Hua RN) INFECTIOUS HISTORY Inf Hx Gonorrhea: No (03/10/2016 07:50:Zara Hua RN) Inf Hx Chlamydia: No (03/10/2016 07:50:Zara Hua RN) Inf Hx Syphilis: No (03/10/2016 07:50:Zara Hua RN) Inf Hx HIV/AIDS: No (03/10/2016 07:50:Zara Hua RN) Inf Hx Human Papilloma Virus: No (03/10/2016 07:50:Zara Hua RN) Inf Hx Pt/Partner Genital Herpes: No (03/10/2016 07:50:Zara Hua RN) Inf Hx Tuberculosis/Exposure: No (03/10/2016 07:50:Zara Hua RN) Inf Hx Hepatitis B,C: No (03/10/2016 07:50:Zara Hua RN) Inf Hx Rash or Viral Illness: No (03/10/2016 07:50:Zara Hua RN) GENETIC HISTORY Gen Hx Age >=35 at YENNY: No (03/10/2016 07:50:Zara Hua RN) Gen Hx Thalassemia: No (03/10/2016 07:50:Zara Hua RN) Gen Hx Congenital Heart Defect: No (03/10/2016 07:50:Zara Hua RN) Gen Hx Neural Tube Defect: No (03/10/2016 07:50:Zara Hua RN) Gen Hx Down's Syndrome: No (03/10/2016 07:50:Zara Hua RN) Gen Hx Darin-Sachs: No (03/10/2016 07:50:Zara Hua RN) Gen Hx Lorri: No (03/10/2016 07:50:Zara Hau RN) Gen Hx Familial Dysautonomia: No (03/10/2016 07:50:Zara Hua RN) Gen Hx Sickle Cell Disease/Trait: No (03/10/2016 07:50:Zara Hua RN) Gen Hx Hemophilia/Blood Disorder: No (03/10/2016 07:50:Zara Hua RN) Gen Hx Muscular Dystrophy: No (03/10/2016 07:50:Zara Hua RN) Gen Hx Cystic Fibrosis: No (03/10/2016 07:50:Zara Hua RN) Gen Hx Huntingtons Chorea: No (03/10/2016 07:50:Zara Hua RN) Gen Hx Mental Retardation/Autism: No (03/10/2016 07:50:Zara Hua RN) Gen Hx Tested for Fragile X: No (03/10/2016 07:50:Zara Hua RN) Gen Hx Other Inher/Chromosomal: No (03/10/2016 07:50:Zara Hua RN) Gen Hx Maternal Metabolic DO: No (03/10/2016 07:50:Zara Hua RN) Gen Hx Pt Father or FOB Defect: No (03/10/2016 07:50:Zara Hua RN) Gen Hx Other Genetic History: No (03/10/2016 07:50:Zara Hua RN) Gen Hx Drugs/Meds since LMP: No (03/10/2016 07:50:Zara Hua RN)
--- NOTE | 2016-04-09 06:02 | L&D Current Admission ---
Current Admit Datetime Report Generated by CPN: 04/09/2016 06:00 ADMISSION INFORMATION Current Admit Date/Time: 04/04/2016 21:03 (04/04/2016 21:53:Zara Hua RN) Reason for Admission: Induction of Labor (04/04/2016 21:53:Zara Hua RN) Chief Complaint: Pt states that she missed her MFM appointment yesterday and was told to just come here for her NST (03/10/2016 08:00:Yuliya Al RN) EGA per Dates: 38.0 (04/04/2016 21:53:QS system process) Method of Arrival: Wheelchair (04/04/2016 21:53:Zara Hua RN) Admitted From: Home (04/04/2016 21:53:Zara Hua RN) Reason for Induction: Chronic Hypertension (04/04/2016 21:53:Zara Hua RN) Records Available: Yes (04/04/2016 21:53:Zara Hua RN) General Admission Information: Reviewed; Updated; Confirmed (04/04/2016 21:53:Zara Hua RN) General Admission Reviewed By: Laney Hua RN (04/04/2016 21:53:Zara Hua RN) BELONGINGS/ADVANCED DIRECTIVES Valuables/Personal Effects: Purse/Wallet; Cell Phone; Eyeglasses; Jewelry (04/04/2016 21:53:Zara Hua RN) Disposition of Belongings: Kept with Patient (04/04/2016 21:53:Zara Hua RN) Advance Direct for Healthcare: No, and Wants No Information (04/04/2016 21:53:Zara Hua RN) Durable Power of Can Handler: No (04/04/2016 21:53:Zara Hua RN) Living Will: No (04/04/2016 21:53:Zara Hua RN) Pt Rights Information Given: Yes (04/04/2016 21:53:Zara Hua RN) Pt Understands Pt Rights: Yes (04/04/2016 21:53:Zara Hua RN) LEARNING ASSESSMENT Knowledge Level: Understands L_D Process; Understands Care Activities; Had Pre-Hospital Education; Understands Diagnosis (04/04/2016 21:53:Zara Hua RN) Barriers to Learning: Visual Deficit (04/04/2016 21:53:Zara Hua RN) Learning Readiness: Motivated (04/04/2016 21:53:Zara Hua RN) Learns Best By: 1 to 1 Instruction; Reading; Videos; Demonstration (04/04/2016 21:53:Zara Hua RN) Learning Needs: Labor and Delivery Process; Symptoms to Report; Treatment Plan (04/04/2016 21:53:Zraa Hua RN) Learning Assessment Comments: wears glasses (04/04/2016 21:53:Zara Hua RN) DOMESTIC VIOLANCE SCREENING Dom Viol Threatened/Hurt: No (04/04/2016 21:53:Zara Hua RN) Hx of Abuse/Neglect past 2yrs: No (04/04/2016 21:53:Zara Hua RN) Feel Unsafe Going Home: No (04/04/2016 21:53:Zara Hua RN) Addt'l Observ Indicating Abuse: No (04/04/2016 21:53:Zara Hua RN) Reason Unable to Complete Screen: N/A, Screen Completed (04/04/2016 21:53:Zara Hua RN) Considered Personal Harm/Suicide: No (04/04/2016 21:53:Zara Hua RN) NUTRITIONAL/FUNCTIONAL SCREENING Problem with Appetite >5 Days: No (04/04/2016 21:53:Zara Hua RN) Chew/Swallow Difficulties: No (04/04/2016 21:53:Zara Hua RN) Inappropriate Wt Gain/Loss: No (04/04/2016 21:53:Zara Hua RN) Presence Skin Breakdown/Ulcer: No (04/04/2016 21:53:Zara Hua RN) Special Diet: No (04/04/2016 21:53:Zara Hua RN) Pt Requests Insurance Operations Rep Visit: No (04/04/2016 21:53:Zara Hua RN) Hx of Any of the Following?: N/A (04/04/2016 21:53:Zara Hua RN) New Diagnosis of: N/A (04/04/2016 21:53:Zara Hua RN) Requires Assist w/Ambulation: No (04/04/2016 21:53:Zara Hua RN) Uses Assist Device to Ambulate: No (04/04/2016 21:53:Zara Hua RN) Pt Requires Help w/ADL's: No (04/04/2016 21:53:Zara Hua RN)
--- NOTE | 2016-04-10 06:01 | L&D General Admission ---
General Admit Datetime Report Generated by CPN: 04/10/2016 06:00 INFORMATION Patient Age: 40 (07/14/2015 07:40:QS system process) EDC: 04/18/2016 00:00 (03/10/2016 07:50:Shagufta Morrison RN) : 10 (03/10/2016 07:50:Shagufta Morrison RN) Para: 8 (03/15/2016 12:28:Valencia Douglas RN) Term: 7 (03/10/2016 07:50:Valencia Douglas RN) : 1 (03/10/2016 07:50:Valencia Douglas RN) Spontaneous Abortions: 1 (03/10/2016 07:50:Valencia Douglas RN) Induced Abortions: 0 (03/10/2016 07:50:Zara Hua RN) Livin (03/10/2016 07:50:Valencia Douglas RN) Cesareans: 0 (03/10/2016 07:50:Zara Hua RN) VBACs: 0 (03/10/2016 07:50:Zara Hua RN) Ectopic: 0 (03/10/2016 07:50:Zara Hua RN) Multiple Births: 0 (03/10/2016 07:50:Zara Hua RN) Baby, Number in Womb: 1 (03/15/2016 12:28:KANNAN Alfaro) CARE Primary Customs And Immigration Officer: [facility] (03/10/2016 07:50:Shagufta Morrison RN) Adequate Care: Yes (03/10/2016 07:50:Zara uHa RN) Prepregnancy Weight (lb): 157 (03/10/2016 07:50:Zara Hua RN) Prepregnancy Weight (kg): 71.4 (03/10/2016 07:50:QS system process) Height (in): 67 (04/07/2016 13:05:QS system process) ALLERGIES Medication Allergy: No (03/10/2016 07:50:Zara Hua RN) Medication Allergies: No Known Allergies (03/15/2016) (03/15/2016 11:47:QS system process) Latex Allergy: No Latex Allergies (03/10/2016 07:50:Zara Hua RN) COMMUNICATION Primary Language: Liberian (03/10/2016 07:50:Shagufta Morrison RN) Medical Tx Preferred Language: Liberian (03/10/2016 07:50:Shagufta Morrison RN) Communication Barrier(s): None (03/10/2016 07:50:Shagufta Morrison RN) DEMOGRAPHICS Address: [address] [place] [id number] (07/14/2015 07:40:QS system process) Zipcode: [address] (07/14/2015 07:40:QS system process) Home (07/14/2015 07:40:QS system process) SSN: [id number] (07/14/2015 07:40:QS system process) Next of Kin Name: CHAKA CARRASCO (07/14/2015 07:40:QS system process) Next of Kin (07/14/2015 07:40:QS system process) Next of Kin Relationship: SPO (07/14/2015 07:40:QS system process) Date of : 1975 (07/14/2015 07:40:QS system process) Marital Status: (07/14/2015 07:40:QS system process) Sex: Female (07/14/2015 07:40:QS system process) Race: (07/14/2015 07:40:QS system process) Ethnicity: Non- or (07/14/2015 07:40:QS system process) Church: Judaism (07/14/2015 07:40:QS system process) DRUG AND ALCOHOL USE Alcohol: No (03/10/2016 07:50:Zara Hua RN) Cigarettes: Never Smoker. [id number] (03/10/2016 07:50:Zara Hua RN) Marijuana: No (03/10/2016 07:50:Zara Hua RN) Cocaine: No (03/10/2016 07:50:Zara Hua RN) Other Illicit Drugs: No (03/10/2016 07:50:Zara Hua RN) VACCINE HISTORY Influenza Vaccine: Uncertain (03/10/2016 07:50:Zara Hua RN) Pneumococcal Vaccine: No (03/10/2016 07:50:Zara Hua RN) Tdap Vaccine: Uncertain (03/10/2016 07:50:Zara Hua RN) Hepatitis B Vaccine: Uncertain (03/10/2016 07:50:Zara Hua RN) Online Marketing Coordinator: [facility] (03/10/2016 07:50:Zara Hua RN) Feeding Preference: Both (03/10/2016 07:50:Zara Hua RN) Benefit of Breast Feed Discussed: Yes (03/10/2016 07:50:Zara Hua RN) Circumcision: No (03/10/2016 07:50:Zara Hua RN) Classes Attended: No (03/10/2016 07:50:Zara Hua RN) Consent: N/A (03/10/2016 07:50:Zara Hua RN) Consent Signed: N/A (03/10/2016 07:50:Zara Hua RN) Pain Management Plans: Epidural (03/10/2016 07:50:Zara Hua RN) Plans for Labor and Delivery: None (03/10/2016 07:50:Zara Hua RN) Support Person: Chaka (03/10/2016 07:50:Zara Hua RN) Support Person Relationship: (03/10/2016 07:50:Zara Hua RN) Cultural/Spritual Practice: No (03/10/2016 07:50:Zara Hua RN) Spir/Cult Dietary Needs: No (03/10/2016 07:50:Zara Hua RN) LIVING SITUATION/DISCHARGE PLAN Adequate Access to:: Electric; Heat; Refrigeration; Plumbing/Running water; Phone; Transportation (03/10/2016 07:50:Zara Hua RN) WIC Program: Yes (03/10/2016 07:50:Zara Hua RN) Discharge Ciaio Lumite Injector Person: Chaka (03/10/2016 07:50:Zara Hua RN) Person to Help after Discharge: Chaka (03/10/2016 07:50:Zara Hua RN) Currently Using Commun Resources: No (03/10/2016 07:50:Zara Hua RN) Outside Agency/Strategy Analyst: No (03/10/2016 07:50:Zara Hua RN) Car Seat for Discharge: Yes (03/10/2016 07:50:Zara Hua RN) Adoption Requested: No (03/10/2016 07:50:Zara Hua RN) Pt Contact w/ Post : N/A (03/10/2016 07:50:Zara Hua RN) LABS Blood Type: O Positive (03/10/2016 07:50:Valencia Douglas RN) Antibody Screen: Negative (03/10/2016 07:50:Valencia Douglas RN) Rho(G) this : Not Applicable (03/10/2016 07:50:Zara Hua RN) Hemoglobin: 11.7 L (04/06/2016 07:06:QS system process) Hematocrit: 36.4 (04/06/2016 07:06:QS system process) MCV: 94 (04/06/2016 07:06:QS system process) Group Beta Strep: negative (03/10/2016 07:50:Valencia Douglas RN) Gonorrhea: Negative (03/10/2016 07:50:Valencia Douglas RN) Chlamydia: Negative (03/10/2016 07:50:Valencia Douglas RN) RPR/VDRL: Nonreactive (03/10/2016 07:50:Valencia Douglas RN) HIV Results: non-reactive (03/10/2016 07:50:Valencia Douglas RN) Hepatitis B: Negative (03/10/2016 07:50:Valencia Douglas RN) Rubella: Immune (03/10/2016 07:50:Valencia Douglas RN) Varicella: Non Susceptible (03/10/2016 07:50:Valencia Douglas RN) HgB A1c: 5.5 (07/14/2015 07:50:QS system process) OB/PREVIOUS HISTORY Previous Procedures: Ultrasound; NST (03/10/2016 07:50:Zara Hua RN) Current Procedures: Ultrasound; NST (03/10/2016 07:50:Zara Hua RN) History of Previous : No (03/10/2016 07:50:Zara Hua RN) History of Gestational Diabetes: No (03/10/2016 07:50:Zara Hua RN) History of PIH: No (03/10/2016 07:50:Zara Hua RN) History of Incompetent Cervix: No (03/10/2016 07:50:Zara Hua RN) History of Placenta Previa/Abrup: No (03/10/2016 07:50:Zara Hua RN) History of Macrosomia: No (03/10/2016 07:50:Zara Hua RN) History of IUGR: No (03/10/2016 07:50:Zara Hua RN) History of Hemorrhage: No (03/10/2016 07:50:Zara Hua RN) History of Loss/Stillborn: No (03/10/2016 07:50:Zara Hua RN) History of : No (03/10/2016 07:50:Zara Hua RN) History of D (Rh) Sensitization: No (03/10/2016 07:50:Zara Hua RN) History Recurrent Loss/Stillborn: No (03/10/2016 07:50:Zara Hua RN) History Depression/PP Depression: No (03/10/2016 07:50:Zara Hua RN) History of Uterine Anomaly/RAMON: No (03/10/2016 07:50:Zara Hua RN) History of Infertility: No (03/10/2016 07:50:Zara Hua RN) History of ART Treatment: No (03/10/2016 07:50:Zara Hua RN) History of RAMON: No (03/10/2016 07:50:Zara Hua RN) Comments Obstetrical History: G1-1990 36.4 wks gest female 6lbs 13 oz G2-1995 37 wks gest female 6lbs 15oz G3-1998 SAB G4-1998 37 wks gest male 6lbs 10 oz G5-2000 37 wks gest female 5lbs 10oz G6-2003 37 wks gest female 6lbs 11oz G7-2006 37 wks gest male 7lbs 11oz G8-2012 39 wks gest female 7lbs 14oz G9-2014 38.6 wks gest male 7lbs 11 oz [id number] (03/10/2016 07:50:Zara Hua RN) MEDICAL HISTORY Med Hx Diabetes: No (03/10/2016 07:50:Zara Hua RN) Med Hx Hypertension: Yes (03/10/2016 07:50:Valencia Douglas RN) Med Hx Heart Disease: No (03/10/2016 07:50:Zara Lattibeaudeir, RN) Med Hx Autoimmune Disorder: No (03/10/2016 07:50:Zara Hua RN) Med Hx Kidney Disease/UTI: No (03/10/2016 07:50:Zara Hua RN) Med Hx Neurologic/Epilepsy: No (03/10/2016 07:50:Zara Hua RN) Med Hx Psychiatric Disorders: No (03/10/2016 07:50:Zara Hua RN) Med Hx Hepatitis/Liver Disease: No (03/10/2016 07:50:Zara Hua RN) Med Hx Varicosities/Phlebitis: No (03/10/2016 07:50:Zara Hua RN) Med Hx Thyroid Dysfunction: No (03/10/2016 07:50:Zraa Hua RN) Med Hx Trauma/Violence: No (03/10/2016 07:50:Zara Hua RN) Med Hx Blood Transfusion: No (03/10/2016 07:50:Zara Hua RN) Med Hx Pulmonary (Asthma,TB): No (03/10/2016 07:50:Zara Hua RN) Med Hx Breast: No (03/10/2016 07:50:Zara Hua RN) Med Hx CURRICULUM CONSULTANT Surgery: No (03/10/2016 07:50:Zara Hua RN) Med Hx Hospitalization/Surgery: Yes (03/10/2016 07:50:Zara Hua RN) Med Hx Anesthetic Complications: No (03/10/2016 07:50:Zara Hua RN) Med Hx Abnormal Pap Smear: No (03/10/2016 07:50:Zara Hua RN) Other Medical Diseases: Yes (03/10/2016 07:50:Valencia Douglas RN) Med Hx Significant Family Hx: No (03/10/2016 07:50:Zara Hua RN) Details of Med/Surg Hx: CHTN-was on Aldomet then changed to labetalol; anemia; 2007-tubal ligation (failed); childbirth (03/10/2016 07:50:Zara Hua RN) INFECTIOUS HISTORY Inf Hx Gonorrhea: No (03/10/2016 07:50:Zara Hua RN) Inf Hx Chlamydia: No (03/10/2016 07:50:Zara Hua RN) Inf Hx Syphilis: No (03/10/2016 07:50:Zara Hua RN) Inf Hx HIV/AIDS: No (03/10/2016 07:50:Zara Hua RN) Inf Hx Human Papilloma Virus: No (03/10/2016 07:50:Zara Hua RN) Inf Hx Pt/Partner Genital Herpes: No (03/10/2016 07:50:Zara Hua RN) Inf Hx Tuberculosis/Exposure: No (03/10/2016 07:50:Zara Hua RN) Inf Hx Hepatitis B,C: No (03/10/2016 07:50:Zara Hua RN) Inf Hx Rash or Viral Illness: No (03/10/2016 07:50:Zara Hua RN) GENETIC HISTORY Gen Hx Age >=35 at YENNY: No (03/10/2016 07:50:Zara Hua RN) Gen Hx Thalassemia: No (03/10/2016 07:50:Zara Hua RN) Gen Hx Congenital Heart Defect: No (03/10/2016 07:50:Zara Hua RN) Gen Hx Neural Tube Defect: No (03/10/2016 07:50:Zara Hua RN) Gen Hx Down's Syndrome: No (03/10/2016 07:50:Zara Hua RN) Gen Hx Darin-Sachs: No (03/10/2016 07:50:Zara Hua RN) Gen Hx Lorri: No (03/10/2016 07:50:Zara Hua RN) Gen Hx Familial Dysautonomia: No (03/10/2016 07:50:Zara Hua RN) Gen Hx Sickle Cell Disease/Trait: No (03/10/2016 07:50:Zara Hua RN) Gen Hx Hemophilia/Blood Disorder: No (03/10/2016 07:50:Zara Hua RN) Gen Hx Muscular Dystrophy: No (03/10/2016 07:50:Zara Hua RN) Gen Hx Cystic Fibrosis: No (03/10/2016 07:50:Zara Hua RN) Gen Hx Huntingtons Chorea: No (03/10/2016 07:50:Zara Hua RN) Gen Hx Mental Retardation/Autism: No (03/10/2016 07:50:Zara Hua RN) Gen Hx Tested for Fragile X: No (03/10/2016 07:50:Zara Hua RN) Gen Hx Other Inher/Chromosomal: No (03/10/2016 07:50:Zara Hua RN) Gen Hx Maternal Metabolic DO: No (03/10/2016 07:50:Zara Hua RN) Gen Hx Pt Father or FOB Defect: No (03/10/2016 07:50:Zara Hua RN) Gen Hx Other Genetic History: No (03/10/2016 07:50:Zara Hua RN) Gen Hx Drugs/Meds since LMP: No (03/10/2016 07:50:Zara Hua RN)
--- NOTE | 2016-04-11 06:01 | L&D General Admission ---
General Admit Datetime Report Generated by CPN: 04/11/2016 06:00 INFORMATION Patient Age: 40 (07/14/2015 07:40:QS system process) EDC: 04/18/2016 00:00 (03/10/2016 07:50:Shagufta Morrison RN) : 10 (03/10/2016 07:50:Shaugfta Morrison RN) Para: 8 (03/15/2016 12:28:Valencia Douglas RN) Term: 7 (03/10/2016 07:50:Valencia Douglas RN) : 1 (03/10/2016 07:50:Valencia Douglas RN) Spontaneous Abortions: 1 (03/10/2016 07:50:Valencia Douglas RN) Induced Abortions: 0 (03/10/2016 07:50:Zara Hua RN) Livin (03/10/2016 07:50:Valencia Douglas RN) Cesareans: 0 (03/10/2016 07:50:Zara Hua RN) VBACs: 0 (03/10/2016 07:50:Zara Hua RN) Ectopic: 0 (03/10/2016 07:50:Zara Hua RN) Multiple Births: 0 (03/10/2016 07:50:Zara Hua RN) Baby, Number in Womb: 1 (03/15/2016 12:28:KANNAN Alfaro) CARE Primary Hand Bindery Assembly Worker: [facility] (03/10/2016 07:50:Shagufta Morrison RN) Adequate Care: Yes (03/10/2016 07:50:Zara Hua RN) Prepregnancy Weight (lb): 157 (03/10/2016 07:50:Zara Hua RN) Prepregnancy Weight (kg): 71.4 (03/10/2016 07:50:QS system process) Height (in): 67 (04/07/2016 13:05:QS system process) ALLERGIES Medication Allergy: No (03/10/2016 07:50:Zara Hua RN) Medication Allergies: No Known Allergies (03/15/2016) (03/15/2016 11:47:QS system process) Latex Allergy: No Latex Allergies (03/10/2016 07:50:Zara Hua RN) COMMUNICATION Primary Language: Belizean (03/10/2016 07:50:Shagufta Morrison RN) Medical Tx Preferred Language: Belizean (03/10/2016 07:50:Shagufta Morrison RN) Communication Barrier(s): None (03/10/2016 07:50:Shagufta Morrison RN) DEMOGRAPHICS Address: [address] [place] [id number] (07/14/2015 07:40:QS system process) Zipcode: [address] (07/14/2015 07:40:QS system process) Home (07/14/2015 07:40:QS system process) SSN: [id number] (07/14/2015 07:40:QS system process) Next of Kin Name: CHAKA CARRASCO (07/14/2015 07:40:QS system process) Next of Kin (07/14/2015 07:40:QS system process) Next of Kin Relationship: SPO (07/14/2015 07:40:QS system process) Date of : 1975 (07/14/2015 07:40:QS system process) Marital Status: (07/14/2015 07:40:QS system process) Sex: Female (07/14/2015 07:40:QS system process) Race: (07/14/2015 07:40:QS system process) Ethnicity: Non- or (07/14/2015 07:40:QS system process) Baptist: Congregation (07/14/2015 07:40:QS system process) DRUG AND ALCOHOL USE Alcohol: No (03/10/2016 07:50:Zara Hua RN) Cigarettes: Never Smoker. [id number] (03/10/2016 07:50:Zara Hua RN) Marijuana: No (03/10/2016 07:50:Zara Hua RN) Cocaine: No (03/10/2016 07:50:Zara Hua RN) Other Illicit Drugs: No (03/10/2016 07:50:Zara Hua RN) VACCINE HISTORY Influenza Vaccine: Uncertain (03/10/2016 07:50:Zara Hua RN) Pneumococcal Vaccine: No (03/10/2016 07:50:Zara Hua RN) Tdap Vaccine: Uncertain (03/10/2016 07:50:Zara Hua RN) Hepatitis B Vaccine: Uncertain (03/10/2016 07:50:Zara Hua RN) Ip Litigation Associate: [facility] (03/10/2016 07:50:Zara Hua RN) Feeding Preference: Both (03/10/2016 07:50:Zara Hua RN) Benefit of Breast Feed Discussed: Yes (03/10/2016 07:50:Zara Hua RN) Circumcision: No (03/10/2016 07:50:Zara Hua RN) Classes Attended: No (03/10/2016 07:50:Zara Hua RN) Consent: N/A (03/10/2016 07:50:Zara Hua RN) Consent Signed: N/A (03/10/2016 07:50:Zara Hua RN) Pain Management Plans: Epidural (03/10/2016 07:50:Zara Hua RN) Plans for Labor and Delivery: None (03/10/2016 07:50:Zara Hua RN) Support Person: Chaka (03/10/2016 07:50:Zara Hua RN) Support Person Relationship: (03/10/2016 07:50:Zara Hua RN) Cultural/Spritual Practice: No (03/10/2016 07:50:Zara Hua RN) Spir/Cult Dietary Needs: No (03/10/2016 07:50:Zara Hua RN) LIVING SITUATION/DISCHARGE PLAN Adequate Access to:: Electric; Heat; Refrigeration; Plumbing/Running water; Phone; Transportation (03/10/2016 07:50:Zara Hua RN) WIC Program: Yes (03/10/2016 07:50:Zara Hua RN) Discharge Senior Hardware Design Engineer Person: Chaka (03/10/2016 07:50:Zara Hua RN) Person to Help after Discharge: Chaka (03/10/2016 07:50:Zara Hua RN) Currently Using Commun Resources: No (03/10/2016 07:50:Zara Hua RN) Outside Agency/Education Trainer: No (03/10/2016 07:50:Zara Hua RN) Car Seat for Discharge: Yes (03/10/2016 07:50:Zara Hua RN) Adoption Requested: No (03/10/2016 07:50:Zara Hua RN) Pt Contact w/ Post : N/A (03/10/2016 07:50:Zara Hua RN) LABS Blood Type: O Positive (03/10/2016 07:50:Valencia Douglas RN) Antibody Screen: Negative (03/10/2016 07:50:Valencia Douglas RN) Rho(G) this : Not Applicable (03/10/2016 07:50:Zara Hua RN) Hemoglobin: 11.7 L (04/06/2016 07:06:QS system process) Hematocrit: 36.4 (04/06/2016 07:06:QS system process) MCV: 94 (04/06/2016 07:06:QS system process) Group Beta Strep: negative (03/10/2016 07:50:Valencia Douglas RN) Gonorrhea: Negative (03/10/2016 07:50:Valencia Douglas RN) Chlamydia: Negative (03/10/2016 07:50:Valencia Douglas RN) RPR/VDRL: Nonreactive (03/10/2016 07:50:Valencia Douglas RN) HIV Results: non-reactive (03/10/2016 07:50:Valencia Douglas RN) Hepatitis B: Negative (03/10/2016 07:50:Valencia Douglas RN) Rubella: Immune (03/10/2016 07:50:Valencia Douglas RN) Varicella: Non Susceptible (03/10/2016 07:50:Valencia Douglas RN) HgB A1c: 5.5 (07/14/2015 07:50:QS system process) OB/PREVIOUS HISTORY Previous Procedures: Ultrasound; NST (03/10/2016 07:50:Zara Hua RN) Current Procedures: Ultrasound; NST (03/10/2016 07:50:Zara Hua RN) History of Previous : No (03/10/2016 07:50:Zara Hua RN) History of Gestational Diabetes: No (03/10/2016 07:50:Zara Hua RN) History of PIH: No (03/10/2016 07:50:Zara Hua RN) History of Incompetent Cervix: No (03/10/2016 07:50:Zara Hua RN) History of Placenta Previa/Abrup: No (03/10/2016 07:50:Zara Hua RN) History of Macrosomia: No (03/10/2016 07:50:Zara Hua RN) History of IUGR: No (03/10/2016 07:50:Zara Hua RN) History of Hemorrhage: No (03/10/2016 07:50:Zara Hua RN) History of Loss/Stillborn: No (03/10/2016 07:50:Zara Hua RN) History of : No (03/10/2016 07:50:Zara Hua RN) History of D (Rh) Sensitization: No (03/10/2016 07:50:Zara Hua RN) History Recurrent Loss/Stillborn: No (03/10/2016 07:50:Zara Hua RN) History Depression/PP Depression: No (03/10/2016 07:50:Zara Hua RN) History of Uterine Anomaly/RAMON: No (03/10/2016 07:50:Zara Hua RN) History of Infertility: No (03/10/2016 07:50:Zara Hua RN) History of ART Treatment: No (03/10/2016 07:50:Zara Hua RN) History of RAMON: No (03/10/2016 07:50:Zara Hua RN) Comments Obstetrical History: G1-1990 36.4 wks gest female 6lbs 13 oz G2-1995 37 wks gest female 6lbs 15oz G3-1998 SAB G4-1998 37 wks gest male 6lbs 10 oz G5-2000 37 wks gest female 5lbs 10oz G6-2003 37 wks gest female 6lbs 11oz G7-2006 37 wks gest male 7lbs 11oz G8-2012 39 wks gest female 7lbs 14oz G9-2014 38.6 wks gest male 7lbs 11 oz [id number] (03/10/2016 07:50:Zara Hua RN) MEDICAL HISTORY Med Hx Diabetes: No (03/10/2016 07:50:Zara Hua RN) Med Hx Hypertension: Yes (03/10/2016 07:50:Valencia Douglas RN) Med Hx Heart Disease: No (03/10/2016 07:50:Zara Lattibeaudeir, RN) Med Hx Autoimmune Disorder: No (03/10/2016 07:50:Zara Hua RN) Med Hx Kidney Disease/UTI: No (03/10/2016 07:50:Zara Hua RN) Med Hx Neurologic/Epilepsy: No (03/10/2016 07:50:Zara Hua RN) Med Hx Psychiatric Disorders: No (03/10/2016 07:50:Zara Hua RN) Med Hx Hepatitis/Liver Disease: No (03/10/2016 07:50:Zara Hua RN) Med Hx Varicosities/Phlebitis: No (03/10/2016 07:50:Zara Hua RN) Med Hx Thyroid Dysfunction: No (03/10/2016 07:50:Zara Hua RN) Med Hx Trauma/Violence: No (03/10/2016 07:50:Zara Hua RN) Med Hx Blood Transfusion: No (03/10/2016 07:50:Zara Hua RN) Med Hx Pulmonary (Asthma,TB): No (03/10/2016 07:50:Zara Hua RN) Med Hx Breast: No (03/10/2016 07:50:Zara Hua RN) Med Hx TREATMENT PLANT MECHANIC Surgery: No (03/10/2016 07:50:Zara Hua RN) Med Hx Hospitalization/Surgery: Yes (03/10/2016 07:50:Zara Hua RN) Med Hx Anesthetic Complications: No (03/10/2016 07:50:Zara Hua RN) Med Hx Abnormal Pap Smear: No (03/10/2016 07:50:Zara Hua RN) Other Medical Diseases: Yes (03/10/2016 07:50:Valencia Douglas RN) Med Hx Significant Family Hx: No (03/10/2016 07:50:Zara Hua RN) Details of Med/Surg Hx: CHTN-was on Aldomet then changed to labetalol; anemia; 2007-tubal ligation (failed); childbirth (03/10/2016 07:50:Zara Hua RN) INFECTIOUS HISTORY Inf Hx Gonorrhea: No (03/10/2016 07:50:Zara Hua RN) Inf Hx Chlamydia: No (03/10/2016 07:50:Zara Hua RN) Inf Hx Syphilis: No (03/10/2016 07:50:Zara Hua RN) Inf Hx HIV/AIDS: No (03/10/2016 07:50:Zara Hua RN) Inf Hx Human Papilloma Virus: No (03/10/2016 07:50:Zara Hua RN) Inf Hx Pt/Partner Genital Herpes: No (03/10/2016 07:50:Zara Hua RN) Inf Hx Tuberculosis/Exposure: No (03/10/2016 07:50:Zara Hua RN) Inf Hx Hepatitis B,C: No (03/10/2016 07:50:Zara Hua RN) Inf Hx Rash or Viral Illness: No (03/10/2016 07:50:Zara Hua RN) GENETIC HISTORY Gen Hx Age >=35 at YENNY: No (03/10/2016 07:50:Zara Hua RN) Gen Hx Thalassemia: No (03/10/2016 07:50:Zara Hua RN) Gen Hx Congenital Heart Defect: No (03/10/2016 07:50:Zara Hua RN) Gen Hx Neural Tube Defect: No (03/10/2016 07:50:Zara Hua RN) Gen Hx Down's Syndrome: No (03/10/2016 07:50:Zara Hua RN) Gen Hx Darin-Sachs: No (03/10/2016 07:50:Zara Hua RN) Gen Hx Lorri: No (03/10/2016 07:50:Zara Hua RN) Gen Hx Familial Dysautonomia: No (03/10/2016 07:50:Zara Hua RN) Gen Hx Sickle Cell Disease/Trait: No (03/10/2016 07:50:Zara Hua RN) Gen Hx Hemophilia/Blood Disorder: No (03/10/2016 07:50:Zara Hua RN) Gen Hx Muscular Dystrophy: No (03/10/2016 07:50:Zara Hua RN) Gen Hx Cystic Fibrosis: No (03/10/2016 07:50:Zara Hua RN) Gen Hx Huntingtons Chorea: No (03/10/2016 07:50:Zara Hua RN) Gen Hx Mental Retardation/Autism: No (03/10/2016 07:50:Zara Hua RN) Gen Hx Tested for Fragile X: No (03/10/2016 07:50:Zara Hua RN) Gen Hx Other Inher/Chromosomal: No (03/10/2016 07:50:Zara Hua RN) Gen Hx Maternal Metabolic DO: No (03/10/2016 07:50:Zara Hua RN) Gen Hx Pt Father or FOB Defect: No (03/10/2016 07:50:Zara Hua RN) Gen Hx Other Genetic History: No (03/10/2016 07:50:Zara Hua RN) Gen Hx Drugs/Meds since LMP: No (03/10/2016 07:50:Zara Hua RN)
--- NOTE | 2016-04-11 18:02 | L&D Current Admission ---
Current Admit Datetime Report Generated by CPN: 04/11/2016 18:00 ADMISSION INFORMATION Current Admit Date/Time: 04/04/2016 21:03 (04/04/2016 21:53:Zara Hua RN) Reason for Admission: Induction of Labor (04/04/2016 21:53:Zara Hua RN) Chief Complaint: Pt states that she missed her MFM appointment yesterday and was told to just come here for her NST (03/10/2016 08:00:Yuliya Al RN) EGA per Dates: 38.0 (04/04/2016 21:53:QS system process) Method of Arrival: Wheelchair (04/04/2016 21:53:Zara Hua RN) Admitted From: Home (04/04/2016 21:53:Zara Hua RN) Reason for Induction: Chronic Hypertension (04/04/2016 21:53:Zara Hua RN) Records Available: Yes (04/04/2016 21:53:Zara Hua RN) General Admission Information: Reviewed; Updated; Confirmed (04/04/2016 21:53:Zara Hua RN) General Admission Reviewed By: Laney Hua RN (04/04/2016 21:53:Zara Hua RN) BELONGINGS/ADVANCED DIRECTIVES Valuables/Personal Effects: Purse/Wallet; Cell Phone; Eyeglasses; Jewelry (04/04/2016 21:53:Zara Hua RN) Disposition of Belongings: Kept with Patient (04/04/2016 21:53:Zara Hua RN) Advance Direct for Healthcare: No, and Wants No Information (04/04/2016 21:53:Zara Hua RN) Durable Power of Implementation Project Coordinator: No (04/04/2016 21:53:Zara Hua RN) Living Will: No (04/04/2016 21:53:Zara Hua RN) Pt Rights Information Given: Yes (04/04/2016 21:53:Zara Hua RN) Pt Understands Pt Rights: Yes (04/04/2016 21:53:Zara Hua RN) LEARNING ASSESSMENT Knowledge Level: Understands L_D Process; Understands Care Activities; Had Pre-Hospital Education; Understands Diagnosis (04/04/2016 21:53:Zara Hua RN) Barriers to Learning: Visual Deficit (04/04/2016 21:53:Zara Hua RN) Learning Readiness: Motivated (04/04/2016 21:53:Zara Hua RN) Learns Best By: 1 to 1 Instruction; Reading; Videos; Demonstration (04/04/2016 21:53:Zara Hua RN) Learning Needs: Labor and Delivery Process; Symptoms to Report; Treatment Plan (04/04/2016 21:53:Zara Hua RN) Learning Assessment Comments: wears glasses (04/04/2016 21:53:Zara Hua RN) DOMESTIC VIOLANCE SCREENING Dom Viol Threatened/Hurt: No (04/04/2016 21:53:Zara Hua RN) Hx of Abuse/Neglect past 2yrs: No (04/04/2016 21:53:Zara Hua RN) Feel Unsafe Going Home: No (04/04/2016 21:53:Zara Hua RN) Addt'l Observ Indicating Abuse: No (04/04/2016 21:53:Zara Hua RN) Reason Unable to Complete Screen: N/A, Screen Completed (04/04/2016 21:53:Zara Hua RN) Considered Personal Harm/Suicide: No (04/04/2016 21:53:Zara Hua RN) NUTRITIONAL/FUNCTIONAL SCREENING Problem with Appetite >5 Days: No (04/04/2016 21:53:Zara Hua RN) Chew/Swallow Difficulties: No (04/04/2016 21:53:Zara Hua RN) Inappropriate Wt Gain/Loss: No (04/04/2016 21:53:Zara Hua RN) Presence Skin Breakdown/Ulcer: No (04/04/2016 21:53:Zara Hua RN) Special Diet: No (04/04/2016 21:53:Zara Hua RN) Pt Requests Nuclear Physics Professor Visit: No (04/04/2016 21:53:Zara Hau RN) Hx of Any of the Following?: N/A (04/04/2016 21:53:Zara Hua RN) New Diagnosis of: N/A (04/04/2016 21:53:Zara Hua RN) Requires Assist w/Ambulation: No (04/04/2016 21:53:Zara Hua RN) Uses Assist Device to Ambulate: No (04/04/2016 21:53:Zara Hua RN) Pt Requires Help w/ADL's: No (04/04/2016 21:53:Zara Hua RN)
--- NOTE | 2016-04-11 18:03 | L&D General Admission ---
General Admit Datetime Report Generated by CPN: 04/11/2016 18:00 INFORMATION Patient Age: 40 (07/14/2015 07:40:QS system process) EDC: 04/18/2016 00:00 (03/10/2016 07:50:Shagufta Morrison RN) : 10 (03/10/2016 07:50:Shagufta Morrison RN) Para: 8 (03/15/2016 12:28:Valencia Douglas RN) Term: 7 (03/10/2016 07:50:Valencia Douglas RN) : 1 (03/10/2016 07:50:Valencia Douglas RN) Spontaneous Abortions: 1 (03/10/2016 07:50:Valencia Douglas RN) Induced Abortions: 0 (03/10/2016 07:50:Zara Hua RN) Livin (03/10/2016 07:50:Valencia Douglas RN) Cesareans: 0 (03/10/2016 07:50:Zara Hua RN) VBACs: 0 (03/10/2016 07:50:Zara Hua RN) Ectopic: 0 (03/10/2016 07:50:Zara Hua RN) Multiple Births: 0 (03/10/2016 07:50:Zara Hua RN) Baby, Number in Womb: 1 (03/15/2016 12:28:KANNAN Alfaro) CARE Primary Fuel Oil Clerk: [facility] (03/10/2016 07:50:Shagufta Morrison RN) Adequate Care: Yes (03/10/2016 07:50:Zara Hua RN) Prepregnancy Weight (lb): 157 (03/10/2016 07:50:Zara Hua RN) Prepregnancy Weight (kg): 71.4 (03/10/2016 07:50:QS system process) Height (in): 67 (04/07/2016 13:05:QS system process) ALLERGIES Medication Allergy: No (03/10/2016 07:50:Zara Hua RN) Medication Allergies: No Known Allergies (03/15/2016) (03/15/2016 11:47:QS system process) Latex Allergy: No Latex Allergies (03/10/2016 07:50:Zara Hua RN) COMMUNICATION Primary Language: Faroese (03/10/2016 07:50:Shagufta Morrison RN) Medical Tx Preferred Language: Faroese (03/10/2016 07:50:Shagufta Morrison RN) Communication Barrier(s): None (03/10/2016 07:50:Shagufta Morrison RN) DEMOGRAPHICS Address: [address] [place] [id number] (07/14/2015 07:40:QS system process) Zipcode: [address] (07/14/2015 07:40:QS system process) Home (07/14/2015 07:40:QS system process) SSN: [id number] (07/14/2015 07:40:QS system process) Next of Kin Name: CHAKA CARRASCO (07/14/2015 07:40:QS system process) Next of Kin (07/14/2015 07:40:QS system process) Next of Kin Relationship: SPO (07/14/2015 07:40:QS system process) Date of : 1975 (07/14/2015 07:40:QS system process) Marital Status: (07/14/2015 07:40:QS system process) Sex: Female (07/14/2015 07:40:QS system process) Race: (07/14/2015 07:40:QS system process) Ethnicity: Non- or (07/14/2015 07:40:QS system process) Yarsanism: Tenriism (07/14/2015 07:40:QS system process) DRUG AND ALCOHOL USE Alcohol: No (03/10/2016 07:50:Zara Hua RN) Cigarettes: Never Smoker. [id number] (03/10/2016 07:50:Zara Hua RN) Marijuana: No (03/10/2016 07:50:Zara Hua RN) Cocaine: No (03/10/2016 07:50:Zara Hua RN) Other Illicit Drugs: No (03/10/2016 07:50:Zara Hua RN) VACCINE HISTORY Influenza Vaccine: Uncertain (03/10/2016 07:50:Zara Hua RN) Pneumococcal Vaccine: No (03/10/2016 07:50:Zara Hua RN) Tdap Vaccine: Uncertain (03/10/2016 07:50:Zara Hua RN) Hepatitis B Vaccine: Uncertain (03/10/2016 07:50:Zara Hua RN) Ground Host/Hostess: [facility] (03/10/2016 07:50:Zara Hua RN) Feeding Preference: Both (03/10/2016 07:50:Zara Hua RN) Benefit of Breast Feed Discussed: Yes (03/10/2016 07:50:Zara Hua RN) Circumcision: No (03/10/2016 07:50:Zara Hua RN) Classes Attended: No (03/10/2016 07:50:Zara Hua RN) Consent: N/A (03/10/2016 07:50:Zara Hua RN) Consent Signed: N/A (03/10/2016 07:50:Zara Hua RN) Pain Management Plans: Epidural (03/10/2016 07:50:Zara Hua RN) Plans for Labor and Delivery: None (03/10/2016 07:50:Zara Hua RN) Support Person: Chaka (03/10/2016 07:50:Zara Hua RN) Support Person Relationship: (03/10/2016 07:50:Zara Hua RN) Cultural/Spritual Practice: No (03/10/2016 07:50:Zara Hua RN) Spir/Cult Dietary Needs: No (03/10/2016 07:50:Zara Hua RN) LIVING SITUATION/DISCHARGE PLAN Adequate Access to:: Electric; Heat; Refrigeration; Plumbing/Running water; Phone; Transportation (03/10/2016 07:50:Zara Hua RN) WIC Program: Yes (03/10/2016 07:50:Zara Hua RN) Discharge Cherry Grower Person: Chaka (03/10/2016 07:50:Zara Hua RN) Person to Help after Discharge: Chaka (03/10/2016 07:50:Zara Hua RN) Currently Using Commun Resources: No (03/10/2016 07:50:Zara Hua RN) Outside Agency/Night Monitor: No (03/10/2016 07:50:Zara Hua RN) Car Seat for Discharge: Yes (03/10/2016 07:50:Zara Hua RN) Adoption Requested: No (03/10/2016 07:50:Zara Hua RN) Pt Contact w/ Post : N/A (03/10/2016 07:50:Zara Hua RN) LABS Blood Type: O Positive (03/10/2016 07:50:Valencia Douglas RN) Antibody Screen: Negative (03/10/2016 07:50:Valencia Douglas RN) Rho(G) this : Not Applicable (03/10/2016 07:50:Zara Hua RN) Hemoglobin: 11.7 L (04/06/2016 07:06:QS system process) Hematocrit: 36.4 (04/06/2016 07:06:QS system process) MCV: 94 (04/06/2016 07:06:QS system process) Group Beta Strep: negative (03/10/2016 07:50:Valencia Douglas RN) Gonorrhea: Negative (03/10/2016 07:50:Valencia Douglas RN) Chlamydia: Negative (03/10/2016 07:50:Valencia Douglas RN) RPR/VDRL: Nonreactive (03/10/2016 07:50:Valencia Douglas RN) HIV Results: non-reactive (03/10/2016 07:50:Valencia Douglas RN) Hepatitis B: Negative (03/10/2016 07:50:Valencia Douglas RN) Rubella: Immune (03/10/2016 07:50:Valencia Douglas RN) Varicella: Non Susceptible (03/10/2016 07:50:Valencia Douglas RN) HgB A1c: 5.5 (07/14/2015 07:50:QS system process) OB/PREVIOUS HISTORY Previous Procedures: Ultrasound; NST (03/10/2016 07:50:Zara Hua RN) Current Procedures: Ultrasound; NST (03/10/2016 07:50:Zara Hua RN) History of Previous : No (03/10/2016 07:50:Zara Hua RN) History of Gestational Diabetes: No (03/10/2016 07:50:Zara Hua RN) History of PIH: No (03/10/2016 07:50:Zara Hua RN) History of Incompetent Cervix: No (03/10/2016 07:50:Zara Hua RN) History of Placenta Previa/Abrup: No (03/10/2016 07:50:Zara Hua RN) History of Macrosomia: No (03/10/2016 07:50:Zara Hua RN) History of IUGR: No (03/10/2016 07:50:Zara Hua RN) History of Hemorrhage: No (03/10/2016 07:50:Zara Hua RN) History of Loss/Stillborn: No (03/10/2016 07:50:Zara Hua RN) History of : No (03/10/2016 07:50:Zara Hua RN) History of D (Rh) Sensitization: No (03/10/2016 07:50:Zara Hua RN) History Recurrent Loss/Stillborn: No (03/10/2016 07:50:Zara Hua RN) History Depression/PP Depression: No (03/10/2016 07:50:Zara Hua RN) History of Uterine Anomaly/RAMON: No (03/10/2016 07:50:Zara Hua RN) History of Infertility: No (03/10/2016 07:50:Zara Hua RN) History of ART Treatment: No (03/10/2016 07:50:Zara Hua RN) History of RAMON: No (03/10/2016 07:50:Zara Hua RN) Comments Obstetrical History: G1-1990 36.4 wks gest female 6lbs 13 oz G2-1995 37 wks gest female 6lbs 15oz G3-1998 SAB G4-1998 37 wks gest male 6lbs 10 oz G5-2000 37 wks gest female 5lbs 10oz G6-2003 37 wks gest female 6lbs 11oz G7-2006 37 wks gest male 7lbs 11oz G8-2012 39 wks gest female 7lbs 14oz G9-2014 38.6 wks gest male 7lbs 11 oz G71-Nfafexs (03/10/2016 07:50:Zara Hua RN) MEDICAL HISTORY Med Hx Diabetes: No (03/10/2016 07:50:Zara Hua RN) Med Hx Hypertension: Yes (03/10/2016 07:50:Valencia Douglas RN) Med Hx Heart Disease: No (03/10/2016 07:50:Zara Lattibeaudeir, RN) Med Hx Autoimmune Disorder: No (03/10/2016 07:50:Zara Hua RN) Med Hx Kidney Disease/UTI: No (03/10/2016 07:50:Zara Hua RN) Med Hx Neurologic/Epilepsy: No (03/10/2016 07:50:Zara Hua RN) Med Hx Psychiatric Disorders: No (03/10/2016 07:50:Zara Hua RN) Med Hx Hepatitis/Liver Disease: No (03/10/2016 07:50:Zara Hua RN) Med Hx Varicosities/Phlebitis: No (03/10/2016 07:50:Zara Hua RN) Med Hx Thyroid Dysfunction: No (03/10/2016 07:50:Zara Hua RN) Med Hx Trauma/Violence: No (03/10/2016 07:50:Zara Hua RN) Med Hx Blood Transfusion: No (03/10/2016 07:50:Zara Hua RN) Med Hx Pulmonary (Asthma,TB): No (03/10/2016 07:50:Zara Hua RN) Med Hx Breast: No (03/10/2016 07:50:Zara Hua RN) Med Hx PHILOSOPHY FACULTY Surgery: No (03/10/2016 07:50:Zara Hua RN) Med Hx Hospitalization/Surgery: Yes (03/10/2016 07:50:Zara Hua RN) Med Hx Anesthetic Complications: No (03/10/2016 07:50:Zara Hua RN) Med Hx Abnormal Pap Smear: No (03/10/2016 07:50:Zara Hua RN) Other Medical Diseases: Yes (03/10/2016 07:50:Valencia Douglas RN) Med Hx Significant Family Hx: No (03/10/2016 07:50:Zara Hua RN) Details of Med/Surg Hx: CHTN-was on Aldomet then changed to labetalol; anemia; 2007-tubal ligation (failed); childbirth (03/10/2016 07:50:Zara Hua RN) INFECTIOUS HISTORY Inf Hx Gonorrhea: No (03/10/2016 07:50:Zara Hua RN) Inf Hx Chlamydia: No (03/10/2016 07:50:Zara Hua RN) Inf Hx Syphilis: No (03/10/2016 07:50:Zara Hua RN) Inf Hx HIV/AIDS: No (03/10/2016 07:50:Zara Hua RN) Inf Hx Human Papilloma Virus: No (03/10/2016 07:50:Zara Hua RN) Inf Hx Pt/Partner Genital Herpes: No (03/10/2016 07:50:Zara Hua RN) Inf Hx Tuberculosis/Exposure: No (03/10/2016 07:50:Zara Hua RN) Inf Hx Hepatitis B,C: No (03/10/2016 07:50:Zara Hua RN) Inf Hx Rash or Viral Illness: No (03/10/2016 07:50:Zara Hua RN) GENETIC HISTORY Gen Hx Age >=35 at YENNY: No (03/10/2016 07:50:Zara Hua RN) Gen Hx Thalassemia: No (03/10/2016 07:50:Zara Hua RN) Gen Hx Congenital Heart Defect: No (03/10/2016 07:50:Zara Hua RN) Gen Hx Neural Tube Defect: No (03/10/2016 07:50:Zara Hua RN) Gen Hx Down's Syndrome: No (03/10/2016 07:50:Zara Hua RN) Gen Hx Darin-Sachs: No (03/10/2016 07:50:Zara Hua RN) Gen Hx Lorri: No (03/10/2016 07:50:Zara Hua RN) Gen Hx Familial Dysautonomia: No (03/10/2016 07:50:Zara Hua RN) Gen Hx Sickle Cell Disease/Trait: No (03/10/2016 07:50:Zara Hua RN) Gen Hx Hemophilia/Blood Disorder: No (03/10/2016 07:50:Zara Hua RN) Gen Hx Muscular Dystrophy: No (03/10/2016 07:50:Zara Hua RN) Gen Hx Cystic Fibrosis: No (03/10/2016 07:50:Zara Hua RN) Gen Hx Huntingtons Chorea: No (03/10/2016 07:50:Zara Hua RN) Gen Hx Mental Retardation/Autism: No (03/10/2016 07:50:Zara Hua RN) Gen Hx Tested for Fragile X: No (03/10/2016 07:50:Zara Hua RN) Gen Hx Other Inher/Chromosomal: No (03/10/2016 07:50:Zara Hua RN) Gen Hx Maternal Metabolic DO: No (03/10/2016 07:50:Zara Hua RN) Gen Hx Pt Father or FOB Defect: No (03/10/2016 07:50:Zara Hua RN) Gen Hx Other Genetic History: No (03/10/2016 07:50:Zara Hua RN) Gen Hx Drugs/Meds since LMP: No (03/10/2016 07:50:Zara Hua RN)
== END 2016-04-07 13:19 | disposition home or self-care (01) | DRG 774 ==
LOC: LR 20:43 → 2S 04-05 13:40
PROVIDERS: ADMIT Obstetrics & Gynecology; ATTEND Obstetrics & Gynecology
PROC: 10E0XZZ Delivery of Products of Conception, External Approach (ICD-10-PCS; principal; 2016-04-04)
PROC: 3E0P7GC Introduction of Other Therapeutic Substance into Female Reproductive, Via Natural or Artificial Opening (ICD-10-PCS; 2016-04-04)
PROC: 10907ZC Drainage of Amniotic Fluid, Therapeutic from Products of Conception, Via Natural or Artificial Opening (ICD-10-PCS; 2016-04-04)
PROC: 4A1HXCZ Monitoring of Products of Conception, Cardiac Rate, External Approach (ICD-10-PCS; 2016-04-04)
DX: O10.92 Unspecified pre-existing hypertension complicating childbirth (principal); O99.02 Anemia complicating childbirth; D50.9 Iron deficiency anemia, unspecified; O69.82X0 Labor and delivery complicated by other cord entanglement, without compression, not applicable or unspecified; Z3A.38 38 weeks gestation of pregnancy; Z37.0 Single live birth
CPT/HCPCS: 36415; 80053; 80307; 81005; 83615; 84550; 85025; 85027; 86592; 86850; 86900; 86901; J1050; J2590; J3490

== ENCOUNTER 2017-04-26 11:31 | Emergency (ER) | payer OTHER, MEDICAID ==
[2017-04-26 11:55] VITALS: BP 127/90
--- NOTE | 2017-04-26 14:59 | ER Document Report ---
HPI - HPI Pain Level: 0 Context: Patient is a 42-year-old female who presents emergency department who presents emergency department with a chief complaint of cough on and off for the past 2 weeks. She states they visited the hospital approximately 2 weeks ago to visit her dad and a couple days later they all ended up with similar symptoms. She denies any dyspnea on exertion, shortness of breath, wheezing. She is admits to productive sputum. she states that she has been taking Tylenol at home for fever but has not been checking her temperature. Has been tolerating fluids and solids without any difficulty. . Occasional smoker. - CONSTITUTIONAL Constitutional: REPORTS: Fever, Chills - EENT EENT: REPORTS: Sore Throat - NEURO Neurology: REPORTS: Headache - REPRODUCTIVE Reproductive: REPORTS: : Past Medical History - Social History Smoking Status: Current Every Day Smoker Chew tobacco use (# tins/day): No Frequency of alcohol use: None Drug Abuse: None Family History: Reviewed & Not Pertinent Patient has suicidal ideation: No Patient has homicidal ideation: No - Past Medical History Cardiac Medical History: Reports: Hx Hypertension Renal/ Medical History: Denies: Hx Peritoneal Dialysis Past Surgical History: Reports: Hx Tubal Ligation - Immunizations Hx Diphtheria, Pertussis, Tetanus Vaccination: Yes - <5 years Vertical Provider Document - CONSTITUTIONAL Agree With Documented VS: Yes Notes: PHYSICAL EXAM GENERAL: Alert, interacts well. HEAD: Normocephalic, atraumatic. EYES: Pupils equal, round, and reactive to light. Extraocular movements intact. ENT: Oral mucosa moist, tongue midline. NECK: Full range of motion. Supple. Trachea midline. LUNGS: Clear to auscultation bilaterally, no wheezes, rales, or rhonchi. No respiratory distress. HEART: Regular rate and rhythm. No murmurs, gallops, or rubs. ABDOMEN: Soft, nondistended, nontender. No guarding, rebound, or rigidity.. Bowel sounds present in all 4 quadrants. EXTREMITIES: Moves all 4 extremities spontaneously. No edema, radial and dorsalis pedis pulses 2/4 bilaterally. No cyanosis. NEUROLOGICAL: Alert and oriented x4. Normal speech. PSYCH: Normal affect, normal mood. SKIN: Warm, dry, normal turgor. No rashes or lesions noted. - INFECTION CONTROL TRAVEL OUTSIDE OF THE [place] IN LAST 30 DAYS: No - RESPIRATORY O2 Sat by Pulse Oximetry: 98 Course - Re-evaluation Re-evalutation: 04/26/17 15:01 Presentation is most consistent with a viral upper respiratory infection. Patient is overall well appearance, vitals within normal limits, well-hydrated. Patient denies any headache, neck pain, and has no evidence of meningismus on examination. Lungs are clear bilaterally. No evidence of respiratory distress. Based on clinical exam and history, I do not suspect an acute pneumonia, meningitis, strep pharyngitis, or an acute encephalitis. No laboratory or imaging testing is indicated at this time. Will discharge patient with return precautions and followup recommendations. They are in agreement this plan have verbalized understanding return precautions. - Vital Signs Vital signs: Temp Pulse Resp BP Pulse Ox 98 F 108 H 16 127/90 H 98 04/26/17 11:54 04/26/17 11:54 04/26/17 11:54 04/26/17 11:54 04/26/17 11:54 - Diagnostic Test Radiology reviewed: Image reviewed, Reports reviewed Discharge - Discharge Clinical Impression: URI (upper respiratory infection) Qualifiers: URI type: unspecified viral URI Qualified Code(s): J06.9 - Acute upper respiratory infection, unspecified Condition: Good Disposition: HOME, SELF-CARE Additional Instructions: Your symptoms are most likely due to a viral infection it should resolve over the next 7-14 days. You should take [id number] guanfacine per bottle instructions to help thin the mucus. For nasal congestion: I would recommend that you get xgel-cgh-geeyofh oxymetazoline also known is afrin. Use only per bottle instructions and be sure to never use this for more than 3 days if you can develop severe rebound congestion. You may also use tylenol or ibuprofen as needed for aches and thorat discomfort. Please be sure to drink plenty of fluids and get rest. Return to the emergency department he began having difficulty breathing, chest pain, persistent vomiting, or any other symptoms that are concerning to you. Referrals: LIZ LOPEZ MD [COMMUNITY BASED STAFF] - Follow up in 3-5 days
--- NOTE | 2017-04-26 15:05 | RADIOLOGY REPORT (SQ) ---
EXAM DESCRIPTION: CHEST PA/LAT COMPLETED DATE/TIME: 04/26/2017 2:38 pm REASON FOR STUDY: cough COMPARISON: None. EXAM PARAMETERS: NUMBER OF VIEWS: two views TECHNIQUE: Digital Frontal and Lateral radiographic views of the chest acquired. RADIATION DOSE: NA LIMITATIONS: none FINDINGS: LUNGS AND PLEURA: No opacities, masses or pneumothorax. No pleural effusion. MEDIASTINUM AND HILAR STRUCTURES: No masses or contour abnormalities. HEART AND VASCULAR STRUCTURES: Heart normal size. No evidence for failure. BONES: No acute findings. HARDWARE: None in the chest. OTHER: No other significant finding. IMPRESSION: NO SIGNIFICANT RADIOGRAPHIC FINDING IN THE CHEST. TECHNICAL DOCUMENTATION: JOB ID: [id number] [employer]- All Rights Reserved
== END 2017-04-26 15:19 | disposition home or self-care (01) ==
LOC: ER 11:31
DX: J06.9 Acute upper respiratory infection, unspecified (principal); B97.89 Other viral agents as the cause of diseases classified elsewhere; R05 Cough; J02.9 Acute pharyngitis, unspecified; I10 Essential (primary) hypertension; F17.200 Nicotine dependence, unspecified, uncomplicated
CPT/HCPCS: 71046; 99283

== ENCOUNTER 2017-10-24 21:01 | Emergency (ER) | payer MEDICAID, OTHER ==
[2017-10-24 21:21] VITALS: BP 121/92
--- NOTE | 2017-10-24 22:21 | ER Document Report ---
ED General - General Chief Complaint: Sinus Congestion Stated Complaint: QUESY,SHORTNESS OF BREATH,SORE THROAT Time Seen by Provider: 10/24/17 22:02 Notes: Patient presents with concern of rash lesion on his right upper extremity. He states this occurred 4 days ago but denies being outside or working in a setting where he was around weeds or would her emily. Patient denies any nausea vomiting fevers chills does not take any medications on a daily basis no known medical problems. Patient states that rash is itchy in nature. TRAVEL OUTSIDE OF THE [place] IN LAST 30 DAYS: No - Related Data Allergies/Adverse Reactions: No Known Allergies Allergy (Verified 10/24/17 21:54) Past Medical History - Social History Smoking Status: Current Some Day Smoker Frequency of alcohol use: Occasional Drug Abuse: None Family History: Reviewed & Not Pertinent Patient has suicidal ideation: No Patient has homicidal ideation: No - Past Medical History Cardiac Medical History: Reports: Hx Hypertension Renal/ Medical History: Denies: Hx Peritoneal Dialysis Past Surgical History: Reports: Hx Tubal Ligation - Immunizations Hx Diphtheria, Pertussis, Tetanus Vaccination: Yes - <5 years Review of Systems - Review of Systems Constitutional: No symptoms reported EENT: No symptoms reported Cardiovascular: No symptoms reported Respiratory: No symptoms reported Gastrointestinal: No symptoms reported Genitourinary: No symptoms reported Female Genitourinary: No symptoms reported Musculoskeletal: No symptoms reported Skin: See HPI Hematologic/Lymphatic: No symptoms reported Neurological/Psychological: No symptoms reported Physical Exam - Vital signs Vitals: Temp Pulse Resp BP Pulse Ox 98.0 F 90 18 121/92 H 100 10/24/17 21:19 10/24/17 21:19 10/24/17 21:19 10/24/17 21:19 10/24/17 21:19 - Respiratory Respiratory status: No respiratory distress Chest status: Nontender Breath sounds: Normal. No: Rales, Rhonchi, Wheezing - Cardiovascular Rhythm: Regular Heart sounds: Normal auscultation Murmur: No - Skin Skin Temperature: Warm - Several small papules around antecubital area of right upper extremity with 2 smaller patches of skin excoriation but no signs of cellulitis. Appears to be topical dermatitis versus impetigo Course - Re-evaluation Re-evalutation: 10/24/17 22:16 Patient well-appearing in no acute distress he appears to have either topical dermatitis versus impetigo on his right upper extremity. Will provide Bactroban and advised use Benadryl for itching. Also advised to keep area bandaged to contain any seepage that may develop. If symptoms are not improving in the next 3 or 4 days patient is to have area of skin in question reevaluated. - Vital Signs Vital signs: Temp Pulse Resp BP Pulse Ox 98.0 F 90 18 121/92 H 100 10/24/17 21:19 10/24/17 21:19 10/24/17 21:19 10/24/17 21:19 10/24/17 21:19 Discharge - Discharge Clinical Impression: Skin lesion Condition: Good Disposition: HOME, SELF-CARE Additional Instructions: Please use Benadryl per instructions on bottle as needed for itching Keep skin lesion covered to prevent any spread Please have skin lesion re- evaluated in the next 3-4 days if symptoms are not improving Prescriptions: Mupirocin [Bactroban 2% Ointment 22 gm] 22 applic TP BID PRN #1 tube PRN Reason:
[2017-10-24] MEDS ORDERED: METOCLOPRAMIDE HCL 10 MG TABLET PO ONE (22:47)
--- NOTE | 2017-10-24 22:51 | ER Document Report ---
ED General - General Chief Complaint: Sinus Congestion Stated Complaint: QUESY,SHORTNESS OF BREATH,SORE THROAT Time Seen by Provider: 10/24/17 22:02 TRAVEL OUTSIDE OF THE [place] IN LAST 30 DAYS: No - HPI Patient complains to provider of: Sinus congestion postnasal drip sore throat nausea Notes: Patient wound but states symptoms ongoing for the last 2 days. Denies any fevers chills vomiting diarrhea. Patient states last menstrual cycle was September 25. Patient currently is unaware of her status her sister is possibly a chance she may be . Patient states also having pain in the ears. Denies any recent antibiotics. Patient states she has been taking Benadryl for symptoms with minimal relief. Patient states also a semen in her household just recently stopped working therefore she has been sleeping with a fan on. - Related Data Allergies/Adverse Reactions: No Known Allergies Allergy (Verified 10/24/17 21:54) Past Medical History - Social History Smoking Status: Current Some Day Smoker Frequency of alcohol use: Occasional Drug Abuse: None Family History: Reviewed & Not Pertinent Patient has suicidal ideation: No Patient has homicidal ideation: No - Past Medical History Cardiac Medical History: Reports: Hx Hypertension Renal/ Medical History: Denies: Hx Peritoneal Dialysis Past Surgical History: Reports: Hx Tubal Ligation - Immunizations Hx Diphtheria, Pertussis, Tetanus Vaccination: Yes - <5 years Review of Systems - Review of Systems Constitutional: No symptoms reported EENT: See HPI Cardiovascular: No symptoms reported Respiratory: No symptoms reported Gastrointestinal: No symptoms reported Genitourinary: No symptoms reported Female Genitourinary: No symptoms reported Musculoskeletal: No symptoms reported Skin: No symptoms reported Hematologic/Lymphatic: No symptoms reported Neurological/Psychological: No symptoms reported -: Yes All other systems reviewed and negative Physical Exam - Vital signs Vitals: Temp Pulse Resp BP Pulse Ox 98.0 F 90 18 121/92 H 100 10/24/17 21:19 10/24/17 21:19 10/24/17 21:19 10/24/17 21:19 10/24/17 21:19 Interpretation: Normal - General General appearance: Appears well, Alert - HEENT Head: Normocephalic, Atraumatic Eyes: Normal Conjunctiva: Normal Cornea: Normal Eyelashes: Normal Pupils: PERRL Ears: Normal External canal: Normal Tympanic membrane: Normal Sinus: Normal Nasal: Normal Mouth/Lips: Normal Mucous membranes: Normal Pharynx: Post nasal drainage Neck: Normal - Respiratory Respiratory status: No respiratory distress Chest status: Nontender Breath sounds: Normal Chest palpation: Normal - Cardiovascular Rhythm: Regular Heart sounds: Normal auscultation Murmur: No - Abdominal Inspection: Normal Distension: No distension Bowel sounds: Normal Tenderness: Nontender Organomegaly: No organomegaly - Back Back: Normal, Nontender - Extremities General upper extremity: Normal inspection, Nontender, Normal color, Normal ROM , Normal temperature General lower extremity: Normal inspection, Nontender, Normal color, Normal ROM , Normal temperature, Normal weight bearing. No: Rosangela's sign - Neurological Neuro grossly intact: Yes Cognition: Normal Orientation: AAOx4 Abby Coma Scale Eye Opening: Spontaneous [place] Coma Scale Verbal: Oriented [place] Coma Scale Motor: Obeys Commands Abby Coma Scale Total: 15 Speech: Normal Motor strength normal: LUE, RUE, LLE, RLE Sensory: Normal - Psychological Associated symptoms: Normal affect, Normal mood - Skin Skin Temperature: Warm Skin Moisture: Dry Skin Color: Normal Course - Re-evaluation Re-evalutation: 10/25/17 00:38 Patient comes in for evaluation of sinus symptoms. Patient also is unaware of her status and also is complaining of some nausea. Patient at this time refusing to take a friend's a test that she will performed us by her PCP or [id number]. They recommend patient continue to use honey to help with her symptoms sore throat and throat irritation also continue with the Benadryl. Patient will be also given Flonase to help out with some of her congestion symptoms recommended trying to sleep with off and on. Patient stated understanding discharged home. - Vital Signs Vital signs: Temp Pulse Resp BP Pulse Ox 98.0 F 90 18 121/92 H 100 10/24/17 21:19 10/24/17 21:19 10/24/17 21:19 10/24/17 21:19 10/24/17 21:19 Discharge - Discharge Clinical Impression: Nausea, congestion, Post-nasal drip Condition: Good Disposition: HOME, SELF-CARE Instructions: Nausea or Vomiting, Nonspecific ([facility]) Additional Instructions: Your physical examination does not reveal any signs of acute infection requiring antibiotic. Some your symptoms can be due to allergies and weather changes. Would recommend trying the Flonase as prescribed to help out with your postnasal drip. He may also continue to try antihistamines to help out with her symptoms. Would recommend taking a test once you arrive home. He may take the Reglan as prescribed for any nausea that she may have return to ER symptoms worsen. If your test is negative more likely your nausea is caused by the postnasal drip Prescriptions: Fluticasone Propionate [Flonase Nasal [place] 50 Mcg/[place] 16 gm] 1 spray NASL Q12 #1 inhaler Metoclopramide HCl [Reglan] 5 mg PO Q6 #30 tablet Mupirocin [Bactroban 2% Ointment 22 gm] 22 applic TP BID PRN #1 tube PRN Reason:
== END 2017-10-24 23:00 | disposition home or self-care (01) ==
LOC: ER 21:01
DX: R09.81 Nasal congestion (principal); R09.82 Postnasal drip; H92.09 Otalgia, unspecified ear; J02.9 Acute pharyngitis, unspecified; R11.0 Nausea; F17.200 Nicotine dependence, unspecified, uncomplicated; I10 Essential (primary) hypertension
CPT/HCPCS: 99283

== ENCOUNTER 2017-12-08 20:13 | Emergency (ER) | payer OTHER ==
[2017-12-08 22:23] LABS: ABSOLUTE BASOPHILS # (AUTO) 0.1 10^3/uL (0.0-0.2); ABSOLUTE EOSINOPHILS # (AUTO) 0.2 10^3/uL (0.0-0.6); ABSOLUTE LYMPHOCYTES (AUTO) 3.5 10^3/uL (0.5-4.7); ABSOLUTE MONOCYTES (AUTO) 0.9 10^3/uL (0.1-1.4); BASOPHILS % (AUTO) 0.8 % (0-2); EOSINOPHILS % (AUTO) 1.9 % (0-6); HEMATOCRIT 36.6 % (36.0-47.0); HEMOGLOBIN 12.4 g/dL (12.0-15.5); LYMPHOCYTES % (AUTO) 27.3 % (13-45); MEAN CORPUSCULAR HEMOGLOBIN 30.3 pg (27.0-33.4); MEAN CORPUSCULAR HGB CONC 33.9 g/dL (32.0-36.0); MEAN CORPUSCULAR VOLUME 89 fl (80-97); MONOCYTES % (AUTO) 6.7 % (3-13); PLATELET COUNT 286 10^3/uL (150-450); RED CELL DISTRIBUTION WIDTH 13.3 % (11.5-14.0); SEGMENTED NEUTROPHILS % (AUTO) 63.3 % (42-78); TOTAL CELLS COUNTED % (AUTO) 100 %; WHITE BLOOD COUNT 12.7 10^3/uL (4.0-10.5)
[2017-12-08 22:31] LABS: APPEARANCE,URINE CLOUDY; BILIRUBIN,URINE NEGATIVE (NEGATIVE); COLOR,URINE RED; GLUCOSE, URINE NEGATIVE (NEGATIVE); KETONES,URINE NEGATIVE (NEGATIVE); LEUKOCYTE ESTERASE,URINE TRACE (NEGATIVE); NITRITE,URINE NEGATIVE (NEGATIVE); PROTEIN,URINE 100 mg/dL (NEGATIVE); URINE SPECIFIC GRAVITY 1.018
--- NOTE | 2017-12-08 22:31 | ER Document Report ---
ED Medical Screen (RME) - General Chief Complaint: Vag Bleeding, +preg <12wks Stated Complaint: VAGINAL BLEEDING Time Seen by Provider: 12/08/17 22:25 Notes: 42-year-old female, G2 10 P9 at 5 weeks gestation by last menstrual period, comes to the emergency department for chief complaint of positive home test and vaginal bleeding. Denies any pain. Denies any other symptoms including vomiting or fever. TRAVEL OUTSIDE OF THE [place] IN LAST 30 DAYS: No - Related Data Allergies/Adverse Reactions: No Known Allergies Allergy (Verified 10/24/17 21:54) Past Medical History - Past Medical History Cardiac Medical History: Reports: Hx Hypertension Renal/ Medical History: Denies: Hx Peritoneal Dialysis Past Surgical History: Reports: Hx Tubal Ligation - Immunizations Hx Diphtheria, Pertussis, Tetanus Vaccination: Yes - <5 years Physical Exam - Vital signs Vitals: Temp Pulse Resp BP Pulse Ox 98.1 F 90 16 143/88 H 99 12/08/17 20:22 12/08/17 20:22 12/08/17 20:22 12/08/17 20:22 12/08/17 20:22 - Abdominal Inspection: Normal Tenderness: Nontender. No: Tender, Guarding Course - Vital Signs Vital signs: Temp Pulse Resp BP Pulse Ox 98.1 F 90 16 143/88 H 99 12/08/17 20:22 12/08/17 20:22 12/08/17 20:22 12/08/17 20:22 12/08/17 20:22 - Laboratory Result Diagrams: 12/08/17 22:00 Laboratory results interpreted by me: 12/08/17 22:00 WBC 12.7 H
--- NOTE | 2017-12-09 00:44 | RADIOLOGY REPORT (SQ) ---
EXAM DESCRIPTION: US TRANSVAGINAL COMPLETED DATE/TME: 12/08/2017 22:59 CLINICAL HISTORY: 42 years, Female, 5 wks, bleeding, positive COMPARISON: None. TECHNIQUE: Complete first trimester obstetrical ultrasound with transvaginal imaging. FINDINGS: The uterus measures 9.7 x 5.7 x 4.9 cm. No myometrial abnormalities. Endometrial thickness of 13.5 cm. No gestational sac identified. No large adnexal masses. No free pelvic fluid. The left ovary is not identified. The right ovary measures 3.1 x 2.5 x 2.7 cm. Limited color and spectral Doppler imaging demonstrates flow within the right ovary. IMPRESSION: 1. No intrauterine identified. Differential considerations include early normal , miscarriage, or ectopic . Close continued clinical, laboratory, and sonographic follow-up recommended. 2011 [email or web address] All Rights Reserved
--- NOTE | 2017-12-09 01:58 | ER Document Report ---
ED General - General Chief Complaint: Vag Bleeding, +preg <12wks Stated Complaint: VAGINAL BLEEDING Time Seen by Provider: 12/08/17 22:25 Notes: Patient is a 42-year-old female G 11 P9 at 5 weeks by LMP who presents with vaginal spotting. She describes this is a very mild amount of vaginal bleeding that is currently stopped. She denies any associated abdominal pain or vaginal discharge. No dysuria. Denies a history of similar symptoms during this . She has not had a set of care for this . Nothing improves or worsens her symptoms. TRAVEL OUTSIDE OF THE [place] IN LAST 30 DAYS: No - Related Data Allergies/Adverse Reactions: No Known Allergies Allergy (Verified 12/09/17 01:39) Past Medical History - General Information source: Patient Last Menstrual Period: 8.18 - Social History Smoking Status: Never Smoker Frequency of alcohol use: None Drug Abuse: None Lives with: Family Family History: Reviewed & Not Pertinent Patient has suicidal ideation: No Patient has homicidal ideation: No - Past Medical History Cardiac Medical History: Reports: Hx Hypertension Renal/ Medical History: Denies: Hx Peritoneal Dialysis Past Surgical History: Reports: Hx Tubal Ligation - Immunizations Hx Diphtheria, Pertussis, Tetanus Vaccination: Yes - <5 years Review of Systems - Review of Systems Notes: Constitutional: Negative for fever. HENT: Negative for sore throat. Eyes: Negative for visual changes. Cardiovascular: Negative for chest pain. Respiratory: Negative for shortness of breath. Gastrointestinal: Negative for abdominal pain, vomiting or diarrhea. Genitourinary: Positive for vaginal bleeding Musculoskeletal: Negative for back pain. Skin: Negative for rash. Neurological: Negative for headaches, weakness or numbness. 10 point ROS negative except as marked above and in HPI. Physical Exam - Vital signs Vitals: Temp Pulse Resp BP Pulse Ox 98.1 F 90 16 143/88 H 99 12/08/17 20:22 12/08/17 20:22 12/08/17 20:22 12/08/17 20:22 12/08/17 20:22 Interpretation: Normal Notes: PHYSICAL EXAMINATION: GENERAL: Well-appearing, well-nourished and in no acute distress. HEAD: Atraumatic, normocephalic. EYES: Pupils equal round and reactive to light, extraocular movements intact, sclera anicteric, conjunctiva are normal. ENT: nares patent, oropharynx clear without exudates. Moist mucous membranes. NECK: Normal range of motion, supple without lymphadenopathy LUNGS: Breath sounds clear to auscultation bilaterally and equal. No wheezes rales or rhonchi. HEART: Regular rate and rhythm without murmurs ABDOMEN: Soft, nontender, normoactive bowel sounds. No guarding, no rebound. No masses appreciated. EXTREMITIES: Normal range of motion, no pitting or edema. No cyanosis. NEUROLOGICAL: No focal neurological deficits. Moves all extremities spontaneously and on command. PSYCH: Normal mood, normal affect. SKIN: Warm, Dry, normal turgor, no rashes or lesions noted. Course - Re-evaluation Re-evalutation: 12/09/17 01:55 Patient presents with a mild amount of vaginal bleeding in the setting of an early first trimester . Transvaginal ultrasound is unable to visualize an intrauterine at this time. Quantitative beta hCG below the zone of demargination. No active bleeding at time of presentation. She is Rh positive (O+). Patient's abdominal exam is otherwise benign without any focal tenderness. I do not suspect an acute appendicitis, pyelonephritis, cystitis, or bowel obstruction. At this time I have informed the patient that she needs to return to the emergency department or the women's clinic in 48 hours for recheck of her quantitative beta hCG to assess whether or not this is a normal or a possible ectopic . I have emphasized at length with the patient that I cannot definitively exclude an ectopic nor tell her that this is a normal anatomic at this point. She denies any abdominal pain. At this time will discharge with return precautions and follow-up recommendations. Verbal discharge instructions given a the bedside and opportunity for questions given. Medication warnings reviewed. Patient is in agreement with this plan and has verbalized understanding of return precautions and the need for primary care follow-up in the next 24-72 hours. - Vital Signs Vital signs: Temp Pulse Resp BP Pulse Ox 98.4 F 79 16 131/82 H 100 12/09/17 02:05 12/09/17 02:05 12/09/17 02:05 12/09/17 02:05 12/09/17 02:05 - Laboratory Result Diagrams: 12/08/17 22:00 Laboratory results interpreted by me: 12/08/17 12/08/1718 22:00 22:00 22:00 WBC 12.7 H Serum HCG, Qual POSITIVE H Beta HCG, Quant 1294.70 H Urine Protein Urine Blood Urine Urobilinogen Ur Leukocyte Esterase 12/08/17 22:00 WBC Serum HCG, Qual Beta HCG, Quant Urine Protein 100 H Urine Blood LARGE H Urine Urobilinogen 2.0 H Ur Leukocyte Esterase TRACE H - Diagnostic Test Radiology reviewed: Reports reviewed Discharge - Discharge Clinical Impression: of unknown anatomic location, Bleeding in early Condition: Good Disposition: HOME, SELF-CARE Additional Instructions: You need to return to the ED or the women's health clinic in 48 hours for a recheck of your hormone level. The ultrasound is unable to see anything at this time because you are too early in your . We cannot definitively exclude an ectopic at this time. Please return if you develop severe abdominal pain, bleeding that goes through more than 2 pads for more than 2 hours, pass out, or have any other symptoms that are concerning to you. Please follow-up closely with your OBGYN regarding todays visit. Referrals: ONESIMO RENEE MD [ACTIVE STAFF] - 12/11/17
[2017-12-09 02:18] VITALS: BP 131/82
== END 2017-12-09 02:05 | disposition home or self-care (01) ==
LOC: ER 20:13
DX: O20.9 Hemorrhage in early pregnancy, unspecified (principal); Z3A.01 Less than 8 weeks gestation of pregnancy
CPT/HCPCS: 36415; 76817; 81001; 84702; 84703; 85025; 86900; 86901; 93976; 99284

== ENCOUNTER → 2019-03-07 | Outpatient (CLI) | payer OTHER ==
[2019-03-07 11:01] LABS: ABSOLUTE BASOPHILS # (AUTO) 0.1 10^3/uL (0.0-0.2); ABSOLUTE EOSINOPHILS # (AUTO) 0.1 10^3/uL (0.0-0.6); ABSOLUTE LYMPHOCYTES (AUTO) 2.8 10^3/uL (0.5-4.7); ABSOLUTE MONOCYTES (AUTO) 0.5 10^3/uL (0.1-1.4); ABSOLUTE NEUT (AUTO) 5.6 10^3/uL (1.7-8.2); BASOPHILS % (AUTO) 0.8 % (0-2); EOSINOPHILS % (AUTO) 1.1 % (0-6); HEMATOCRIT 42.3 % (36.0-47.0); HEMOGLOBIN 14.8 g/dL (12.0-15.5); LYMPHOCYTES % (AUTO) 30.9 % (13-45); MEAN CORPUSCULAR HEMOGLOBIN 31.1 pg (27.0-33.4); MEAN CORPUSCULAR HGB CONC 34.9 g/dL (32.0-36.0); MEAN CORPUSCULAR VOLUME 89 fl (80-97); MONOCYTES % (AUTO) 5.5 % (3-13); PLATELET COUNT 303 10^3/uL (150-450); RED BLOOD COUNT 4.75 10^6/uL (3.72-5.28); RED CELL DISTRIBUTION WIDTH 13.3 % (11.5-14.0); SEGMENTED NEUTROPHILS % (AUTO) 61.7 % (42-78); TOTAL CELLS COUNTED % (AUTO) 100 %; WHITE BLOOD COUNT 9.1 10^3/uL (4.0-10.5)
[2019-03-07 11:22] LABS: ALBUMIN 4.8 g/dL (3.5-5.0); ALKALINE PHOSPHATASE 62 U/L (38-126); ANION GAP 11 (5-19); ASPARTATE AMINO TRANSFERASE 26 U/L (14-36); BILIRUBIN,DIRECT 0.2 mg/dL (0.0-0.4); BILIRUBIN,TOTAL 0.4 mg/dL (0.2-1.3); BLOOD UREA NITROGEN 9 mg/dL (7-20); CALCIUM 10.3 mg/dL (8.4-10.2); CARBON DIOXIDE 28 mmol/L (22-30); CHLORIDE 101 mmol/L (98-107); CHOLESTEROL 175.23 mg/dL (0-200); GLUCOSE 94 mg/dL (75-110); TOTAL PROTEIN 9.1 g/dL (6.3-8.2); TRIGLYCERIDES 69 mg/dL (<150)
[2019-03-07 11:32] LABS: DIRECT LDL 94 mg/dL (<100)
== END ==
LOC: CCC 09:39
PROVIDERS: ATTEND Family Medicine
DX: Z00.00 Encounter for general adult medical examination without abnormal findings (principal)
CPT/HCPCS: 36415; 80053; 80061; 83036; 84443; 85025